=== PATIENT | male | born 1965 | race Caucasian/White ===

== ENCOUNTER 2020-09-21 09:55 | Emergency (ER) | payer OTHER, SELFPAY ==
[2020-09-21] VITALS (11 sets, daily range): BP systolic 129–192; BP diastolic 89–134; PULSE 94–106; RESP 16–20; TEMP 36.7; O2SAT 96–99
--- NOTE | ~2020-09-21 | XR_ITS ---
EXAMINATION: XR foot RT min 3V DATE: 09/21/2020 10:35 INDICATION: Wound lateral to fifth metatarsal. Neuropathy. TECHNIQUE: 4 views of right foot were obtained. COMPARISON: None. FINDINGS: There is moderate hallux valgus. No fracture. There is mild osteoarthritis of first metatar sophalangeal joint and some of the midfoot joints and interphalangeal joints. There is an enthesophyt e at the posterior aspect of calcaneal tuberosity. There is soft tissue swelling lateral to head of f ifth metatarsal. IMPRESSION: 1. No evidence of osteomyelitis. 2. Moderate hallux valgus. 3. Mild polyarticular osteoarthritis. Reviewed, dictated and finalized at location A. APEUTIC RIDING INSTRUCTOR
[2020-09-21 10:29] LABS: Basophils Absolute Auto 0.1 K/mm3 (0.0-0.1); Basophils Percent Auto 0.9 % (0.2-1.2); Eosinophils Absolute Auto 0.1 K/mm3 (0-0.3); Eosinophils Percent Auto 1.3 % (0-4.4); Hematocrit 44.4 % (42.0-52.0); Immature Granulocyte Absolute 0.04 K/mm3 (0.00-0.031); Immature Granulocyte Percent A 0.5 % (0-0.5); Lymphocytes Absolute Auto 2.36 K/mm3 (0.9-3.2); Lymphocytes Percent Auto 30.6 % (18.3-44.2); Mean Corpuscular HGB Conc 33.8 g/dl (32-36); Mean Corpuscular Hemoglobin 30.2 pg (26-34); Mean Corpuscular Volume 89.3 fl (80-100); Mean Platelet Volume 9.9 fl (7.4-10.4); Monocytes Absolute Auto 0.8 K/mm3 (0.1-0.6); Monocytes Percent Auto 10.2 % (2.6-8.5); Neutrophils Absolute Auto 4.4 K/mm3 (1.3-6.7); Neutrophils Percent Auto 56.5 % (45.5-73.1); Platelet Count Result 318 k/mm3 (150-375); Red Blood Count 4.97 M/mm3 (4.6-6.20); Red Cell Distribution Width 13.2 % (11.5-14.5); White Blood Count 7.7 K/mm3 (4.5-10.0)
[2020-09-21 10:41] LABS: Alanine Aminotransferase 22 U/L (4-50); Alkaline Phosphatase 130 U/L (38-126); Anion Gap 7 mmol/L (8-16); Aspartate Amino Transferase 29 U/L (17-59); Bilirubin,Total 0.6 mg/dL (0.2-1.3); Blood Urea Nitrogen 9 mg/dL (9-20); Calcium 8.8 mg/dL (8.4-10.2); Carbon Dioxide 28 mmol/L (22-30); Chloride 99 mmol/L (98-107); Estimated CRCL calculation 170 ml/min; Estimated Glomerular Filt Rate > 60; Glucose 330 mg/dL (75-110); Potassium 3.8 mmol/L (3.4-5.0); Sodium 134 mmol/L (137-145)
--- NOTE | 2020-09-21 11:44 | ED.WOUNDLAC ---
HPI - Wound/Laceration General Chief Complaint: Wound/Laceration Stated Complaint: right foot wound Time Seen by Provider: 09/21/20 11:10 Source: patient Mode of arrival: ambulatory Limitations: no limitations History of Present Illness HPI narrative: Patient is a 55-year-old male complaining of a wound on the bottom of his right foot that has been going on for almost a year. Patient denies any worsening of the wound. Patient denies any redness or swelling of his right foot. Patient denies any calf pain. Patient denies any cold extremity. Neurovascular is intact bilateral lower extremities. Patient states he has a history of diabetes and hypertension and has not had any medication for the past 2 years due to lack of insurance. Related Data Allergies Allergy/AdvReac Type Severity Reaction Status Date / Time No Known Allergies Allergy Verified 09/21/20 10:17 Review of Systems Review of Systems: All systems reviewed & are unremarkable except as noted in HPI and below Constitutional: Constitutional: Denies body ache(s), Denies chills, Denies excessive sweating, Denies fatigue, Denies fever(s), Denies headache(s), Denies lethargy, Denies malaise, Denies weakness and Denies weight loss Eyes: Eyes: Denies blurry vision, Denies change in vision and Denies loss of vision ENT: Denies dizziness, Denies ear discharge, Denies headache(s), Denies lip swelling, Denies epistaxis, Denies nasal congestion, Denies neck pain, Denies throat swelling and Denies tongue swelling Cardiovascular: Cardiovascular: Denies chest pain, Denies chest pain at rest, Denies chest pain with activity, Denies diaphoresis, Denies rapid heart rate, Denies edema, Denies irregular heart rhythm, Denies lightheadedness, Denies palpitations, Denies dyspnea and Denies dyspnea on exertion Respiratory: Respiratory: Denies chest congestion, Denies cough, Denies hemoptysis, Denies dyspnea and Denies dyspnea on exertion Gastrointestinal: Gastrointestinal: Denies abdominal pain, Denies melena, Denies hematochezia, Denies diarrhea, Denies nausea, Denies vomiting and Denies hematemesis Musculoskeletal: Musculoskeletal: Denies abnormal gait, Denies deformity, Denies joint swelling, Denies limited range of motion, Denies neck pain and Denies numbness Neurologic: Denies Abnormal speech present, Denies abnormal gait, Denies confusion, Denies dizziness, Denies headache(s), Denies focal weakness, Denies loss of vision, Denies numbness, Denies Other visual disturbances, Denies Sensory deficit (Neuro) and Denies weakness Psychiatric: Psychiatric: Denies confusion, Denies depression, Denies auditory hallucinations, Denies homicidal ideation and Denies suicidal ideation Endocrine: Endocrine: Denies cold intolerance, Denies excessive sweating, Denies fatigue, Denies heat intolerance and Denies palpitations Hematologic/Lymphatic: Hematologic/Lymphatic: Denies easy bleeding and Denies easy bruising Allergic/Immunologic: Allergic/Immunologic: Denies lip swelling, Denies throat swelling and Denies tongue swelling Exam Const: General: cooperative, healthy appearing, comfortable, no acute distress, well developed, alert and awake; No confusion Orientation/consciousness: oriented to person, oriented to place, oriented to time, patient oriented x3 and No confusion Limitations: no limitations HENMT: Head: normal to inspection, normocephalic and atraumatic Ears: hearing grossly normal bilaterally, TM normal on the right and TM normal on the left General nose exam: Normal external nose present, Normal nares present and No nasal discharge present Face and sinus: normal facial exam Mouth: Yes Normal oral and palatal mucosa present, Yes lip normal, Yes tongue normal and Yes oropharynx normal Throat: posterior oropharynx normal, tonsils normal and uvula midline Eyes: General: appearance normal, both eyes and all related structures Pupils: Equal, round and reactive pupils present EOM: EOMs intact bilatera
== END 2020-09-21 13:38 | disposition home or self-care (01) ==
PROVIDERS: Emergency Medicine; Emergency Provider Emergency Medicine
DX: E11.621 Type 2 diabetes mellitus with foot ulcer (principal); L97.819 Non-pressure chronic ulcer of other part of right lower leg with unspecified severity; E11.65 Type 2 diabetes mellitus with hyperglycemia; I10 Essential (primary) hypertension; Z79.84 Long term (current) use of oral hypoglycemic drugs
CPT/HCPCS: 36415; 73630; 80053; 85025; 99283

== ENCOUNTER 2023-02-28 00:31 | Day surgery (SDC) | payer OTHER, SELFPAY ==
[2023-02-24 14:48] VITALS: BMI 52.3
[2023-02-28 06:44] VITALS: BP 147/101; PULSE 105; RESP 22; TEMP 36.1; O2SAT 94; BMI 52.7
[2023-02-28] MEDS: LACTATED RINGERS 1,000 ML 150 ML IV CONT (07:04)
[2023-02-28 07:07] LABS: Glucose Point of Care 175 mg/dl (65-105)
--- NOTE | 2023-02-28 07:15 | PM.HPGS ---
History of Present Illness History of Present Illness Consent: Risks, benefits, and alternatives have been discussed and questions answered. Patient agrees to proceed with procedure. Chief complaint: neoplasm screening Narrative: Benny Ramirez is a 57 year old male Presents for screening colonoscopy. Patient's current weight appetite bowel movements are normal. Patient denies abdominal pain. He has had no bleeding. Family history noncontributory. Patient presents today for screening colonoscopy. Past medical history is significant for diabetes, hypertension, atherosclerotic heart disease with a history of VT 10 years ago. Review of Systems Review of Systems: Review of systems noncontributory. [facility] Past Medical History Medical History Accelerated essential hypertension Diabetes mellitus Heart attack History of [place] (myocardial infarction) Family History Family History Other Diabetes mellitus Social History Social History Smoking status: Former smoker Second hand tobacco smoke exposure: No Alcohol intake: never Substance use: never Substance use type: does not use Lack of Transportation: No Lack of Food: Never True Current Housing: I Have Housing Concerned About Future Housing: No Difficulty Paying Gas/Electric Bills: No Difficulty Paying for Meds: No Currently Unemployed: No Education: High School Diploma/GED Difficulty w/ Childcare or Family Care: No Living arrangements: alone Occupation/Education: occupation 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 Gender identity (if verbalized by the patient): Male Sexual Orientation (if Verbalized by the Patient): Straight or Heterosexual Spiritual care concerns: No Agree to blood products: Yes Meds Home Medications and Allergies Home Medications Medication Instructions Recorded Confirmed Type aspirin 325 mg tablet 325 mg PO DAILY 09/20/22 02/24/23 History gabapentin 300 mg capsule 300 mg PO TID #90 caps 09/20/22 02/24/23 Rx glimepiride 1 mg tablet 1 mg PO DAILY #60 tabs 11/11/22 02/24/23 Rx lisinopril 20 mg tablet 20 mg PO DAILY #60 tabs 11/11/22 02/24/23 Rx metformin 1,000 mg tablet 1,000 mg PO BID 30 days #60 tabs 12/19/22 02/24/23 Rx simvastatin 10 mg tablet 10 mg PO DAILY #30 tabs 12/19/22 02/24/23 Rx Allergies Allergy/AdvReac Type Severity Reaction Status Date / Time No Known Allergies Allergy Verified 02/28/23 06:44 Vital Signs Vital Signs - 24 hr 02/28/23 06:44 Temperature 96.9 F L Pulse Rate 105 H Respiratory Rate 22 H Blood Pressure 147/101 H Pulse Oximetry 94 Oxygen Delivery Room Air Exam Narrative: Physical exam reveals patient to be alert. Vital signs stable. HEENT exam is unremarkable. Patient is anicteric. Lungs are clear to auscultation and percussion. Heart is without murmur or extra sounds. Abdomen is obese, bowel sounds are present soft nontender with no organomegaly. Digital external rectal exam is normal. Assessment and Plan Assessment and plan (1) Encounter for screening colonoscopy: Code(s): Z12.11 - Encounter for screening for malignant neoplasm of colon Status: Acute Assessment and Plan: Patient presents today for screening colonoscopy. He appears to be at average risk for colon polyps. Further recommendations may be given after endoscopy.
--- NOTE | 2023-02-28 07:39 | WPDANESEPPF ---
Anes - Initial Pre Proc Eval Procedure: Operation Date: 02/28/23 08:00 Proposed Procedures p Screening Colonoscopy - Benny Beavers MD Date/Time: 02/28/23 07:39 Surgeon: Benny Beavers MD Pre Op Diagnosis: neoplasm screening Patient Data Age: 57 Gender: M Height: 1.83 m Weight: 176.2 kg Last Vital Signs Temp 96.9 F L 02/28/23 06:44 Pulse 105 H 02/28/23 06:44 Resp 22 H 02/28/23 06:44 BP 147/101 H 02/28/23 06:44 Pulse Ox 94 02/28/23 06:44 O2 Del Method Room Air 02/28/23 06:44 Allergies Allergy/AdvReac Type Severity Reaction Status Date / Time No Known Allergies Allergy Verified 02/28/23 06:44 Home Medications Medication Instructions Recorded Confirmed Type aspirin 325 mg tablet 325 mg PO DAILY 09/20/22 02/24/23 History gabapentin 300 mg capsule 300 mg PO TID #90 caps 09/20/22 02/24/23 Rx glimepiride 1 mg tablet 1 mg PO DAILY #60 tabs 11/11/22 02/24/23 Rx lisinopril 20 mg tablet 20 mg PO DAILY #60 tabs 11/11/22 02/24/23 Rx metformin 1,000 mg tablet 1,000 mg PO BID 30 days #60 tabs 12/19/22 02/24/23 Rx simvastatin 10 mg tablet 10 mg PO DAILY #30 tabs 12/19/22 02/24/23 Rx Laboratory Tests 02/28/23 07:03 POC Capillary Glucose 175 H mg/dl (65-105) Patient hx anesthesia problems: none Family hx anesthesia problems: none Results Review: All pre-operative results and documents have been reviewed as part of the pre-operative evaluation. [facility] Past Medical History Medical History Accelerated essential hypertension Diabetes mellitus Heart attack History of CT (myocardial infarction) Family History Family History Other Diabetes mellitus Social History Social History Smoking status: Former smoker Second hand tobacco smoke exposure: No Alcohol intake: never Substance use: never Substance use type: does not use Lack of Transportation: No Lack of Food: Never True Current Housing: I Have Housing Concerned About Future Housing: No Difficulty Paying Gas/Electric Bills: No Difficulty Paying for Meds: No Currently Unemployed: No Education: High School Diploma/GED Difficulty w/ Childcare or Family Care: No Living arrangements: alone Occupation/Education: occupation 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 Gender identity (if verbalized by the patient): Male Sexual Orientation (if Verbalized by the Patient): Straight or Heterosexual Spiritual care concerns: No Agree to blood products: Yes Anes - Eval Final PreProcedure Day of Procedure 02/28/23 07:39 Patient weight: super morbidly obese Heart: regular rate and rhythm Lungs: clear to auscultation Airway: Mallampati scale class III Neurological: alert and oriented Last oral intake: >/= 8 hours ASA classification: IV Emergent: no Anesthetic plan: proceed Anesthesia type and monitoring: general GIVS and standard monitoring Results Review: All pre-operative results and documents have been reviewed as part of the pre-operative evaluation. Informed Consent: The patient's anesthetic plan and its attendant risks and benefits were discussed with the patient/family/POA. Questions were solicited and answers provided to the satisfaction of the patient/family/POA.
[2023-02-28] MEDS: SIMETHICONE ORAL SUSPENSION 20 MG/0.3 ML 30 ML BOTTLE 0.6 ML IRRIGATION (07:59)
[2023-02-28 08:05] VITALS: BP 121/95; PULSE 97; RESP 22; O2SAT 24
[2023-02-28 08:15] VITALS: BP 136/102; PULSE 95; RESP 22; O2SAT 24
[2023-02-28 08:25] VITALS: BP 140/102; PULSE 95; RESP 22; O2SAT 24
== END 2023-02-28 08:33 | disposition home or self-care (01) ==
PROVIDERS: PCP Family Medicine; Visit Provider Internal Medicine Gastroenterology
PROC: 0DJD8ZZ Inspection of Lower Intestinal Tract, Via Natural or Artificial Opening Endoscopic (ICD-10-PCS; CPT 45378; principal; 2023-02-28 08:00)
DX: Z12.11 Encounter for screening for malignant neoplasm of colon (principal); K57.30 Diverticulosis of large intestine without perforation or abscess without bleeding; E11.9 Type 2 diabetes mellitus without complications; I10 Essential (primary) hypertension; I25.2 Old myocardial infarction; E66.01 Morbid (severe) obesity due to excess calories; Z68.43 Body mass index [BMI] 50.0-59.9, adult; Z79.84 Long term (current) use of oral hypoglycemic drugs; Z79.82 Long term (current) use of aspirin; Z87.891 Personal history of nicotine dependence
CPT/HCPCS: 45378; 82948; J2704; J7120

== ENCOUNTER → 2023-09-13 14:04 | Outpatient (CLI) | payer OTHER, SELFPAY ==
--- NOTE | ~2023-09-13 | XR_ITS ---
XR chest 2V DATE: 09/13/2023 14:25 INDICATION: Cough TECHNIQUE: 2 views COMPARISON: None FINDINGS: There is cardiomegaly. There is pulmonary vascular redistribution which may indicate mild pulmonary venous hypertension. No pulmonary infiltrate or consolidation or pleural effusion or pneumothorax is detected. No hilar or mediastinal enlargement. Diffuse osteopenia. IMPRESSION: Cardiomegaly Pulmonary vascular redistribution which may indicate mild pulmonary venous hypertension Reviewed, dictated and finalized at location B. LIGHT INSPECTOR IMPRESSION: Cardiomegaly Pulmonary vascular redistribution which may indicate mild pulmonary venous hype rtension
== END ==
PROVIDERS: PCP Physician Assistant Medical; Visit Provider Physician Assistant Medical
DX: J81.1 Chronic pulmonary edema (principal); R05.9 Cough, unspecified
CPT/HCPCS: 71046

== ENCOUNTER 2023-09-14 12:37 | Emergency (ER) | payer OTHER, SELFPAY ==
[2023-09-14] VITALS (8 sets, daily range): BP systolic 105–168; BP diastolic 61–98; PULSE 99–113; RESP 16–24; TEMP 36.6; O2SAT 90–97
--- NOTE | ~2023-09-14 | US_ITS ---
EXAMINATION: US venous doppler [facility] DATE: 09/14/2023 14:06 INDICATION: Right lower limb swelling and erythema TECHNIQUE: Grayscale ultrasound images without and with compression and Doppler ultrasound images of the left lower extremity veins were obtained. COMPARISON: None. FINDINGS: The visualized portions of left common femoral vein, profunda (deep) femoral vein, femoral vein, popl iteal vein, posterior tibial veins, gastrocnemius vein and greater saphenous vein outflow are patent. IMPRESSION: 1. No deep venous thrombosis in the left lower limb. Reviewed, dictated and finalized at location A. F MERCHANDISING OFFICER
--- NOTE | ~2023-09-14 | CT_ITS ---
EXAMINATION: CTA chest PE protocol DATE: 09/14/2023 14:42 INDICATION: Hemoptysis TECHNIQUE: Computed tomography angiography (CTA) of the chest was performed with 100 mL Omnipaque-350 intravenous contrast timed to evaluate the pulmonary arteries. Coronal maximum intensity projection 3D-reconstructions were created by the technologist. Automated exposure control and iterative reconst ruction technique were employed. Exam dose: 1054.64 mGy-cm total exam DLP. COMPARISON: 09/13/2023 2 view chest FINDINGS: There is moderate opacification of the pulmonary arteries and no evidence of pulmonary embo lism. There are diffuse patchy groundglass infiltrates throughout both lung florentino consistent with extensiv e bilateral pneumonia; definitive diagnosis includes pulmonary edema, hemorrhage, and/or respiratory distress syndrome. There is cardiomegaly. There is extensive coronary artery calcification. There is mild mediastinal lymph node prominence, likely reactive. No pericardial or pleural effusion. Bilateral upper pole renal probable cysts, including 10.5 cm exophytic posterior upper pole left sania l cyst. Normal morphology of the adrenal glands. Degenerative spurring of the cervical, thoracic and lumbar spine. No suspicious osteolytic lesions ar e noted. IMPRESSION: Diffuse severe bilateral patchy groundglass pulmonary infiltrates suggesting extensive b ilateral pneumonia. Consider Covid. Differential diagnosis includes pulmonary edema, pulmonary hemorr joann Cardiomegaly, prominent coronary artery calcification No evidence of pulmonary embolism Bilateral renal cysts Reviewed, dictated and finalized at Location A. Reviewed, dictated and finalized at location L. END SEWER IMPRESSION: Diffuse severe bilateral patchy groundglass pulmonary infiltrates suggesting extensive bilateral pneumonia. Consider Covid. Differential diagnosi s includes pulmonary edema, pulmonary hemorrhage Cardiomegaly, prominent coronary artery calcification No evidence of pulmonary embolism Bilateral renal cysts
[2023-09-14 13:51] LABS: Basophils Absolute Auto 0.1 K/mm3 (0.0-0.1); Basophils Percent Auto 0.7 % (0.2-1.2); Eosinophils Absolute Auto 0.1 K/mm3 (0-0.3); Eosinophils Percent Auto 1.2 % (0-4.4); Hematocrit 41.7 % (42.0-52.0); Hemoglobin 13.6 g/dL (14.0-18.0); Immature Granulocyte Absolute 0.05 K/mm3 (0.00-0.031); Immature Granulocyte Percent A 0.6 % (0-0.5); Lymphocytes Absolute Auto 2.43 K/mm3 (0.9-3.2); Lymphocytes Percent Auto 29.1 % (18.3-44.2); Mean Corpuscular HGB Conc 32.6 g/dl (32-36); Mean Corpuscular Volume 88.9 fl (80-100); Mean Platelet Volume 9.7 fl (7.4-10.4); Monocytes Percent Auto 11.6 % (2.6-8.5); Neutrophils Absolute Auto 4.7 K/mm3 (1.3-6.7); Neutrophils Percent Auto 56.8 % (45.5-73.1); Platelet Count Result 406 k/mm3 (150-375); Red Blood Count 4.69 M/mm3 (4.6-6.20); White Blood Count 8.4 K/mm3 (4.5-10.0)
[2023-09-14 13:52] LABS: Alanine Aminotransferase 22 U/L (6-50); Albumin Level 4.1 g/dL (3.5-5.1); Alkaline Phosphatase 101 U/L (38-126); Anion Gap 12 mmol/L (8-16); Aspartate Amino Transferase 34 U/L (17-59); Bilirubin,Total 0.7 mg/dL (0.2-1.3); Blood Urea Nitrogen 13 mg/dL (9-20); Carbon Dioxide 27 mmol/L (22-30); Chloride 96 mmol/L (98-107); Estimated CRCL calculation 168 ml/min; Estimated Glomerular Filt Rate > 60; Glucose 176 mg/dL (65-110); Potassium 3.8 mmol/L (3.4-5.0); Sodium 135 mmol/L (137-145)
[2023-09-14 13:54] LABS: INR 1.1; Prothrombin Time 14.2 Seconds (11.1-14.7)
[2023-09-14 14:03] LABS: NT Pro B Type Natriuretic Pept 245 pg/mL (19.9-100); Troponin I < 0.012 ng/mL (0.000-0.034)
[2023-09-14 16:16] LABS: Influenza A QL RT-PCR Negative (Negative); Influenza B QL RT-PCR Negative (Negative); RSV RNA, RT-PCR Negative (Negative); SARS-CoV-2 RNA PCR Negative (Negative)
--- NOTE | 2023-09-14 16:43 | ED.GENADULT ---
HPI - General Adult General Chief complaint: Extremity Injury, Lower Stated complaint: r/o blood clot left leg Time Seen by Provider: 09/14/23 12:49 History of Present Illness HPI narrative: patient is a 58-year-old male who presents ER for rule out blood clot. He had an outpatient chest x-ray performed yesterday that showed pulmonary vascular congestion. He has also been having left lower extremity swelling over last couple weeks with mild discoloration. He was started on Levaquin yesterday. He has no chest pain or chest pressure. Mild dyspnea that he feels is chronic. Reports he is chronically orthopneic. No history of CHF. No productive cough. No runny noseor sore throat. No fevers or chills. Related Data Home Medications Medication Instructions Recorded Confirmed aspirin 325 mg tablet 325 mg PO DAILY 09/20/22 09/13/23 Allergies Allergy/AdvReac Type Severity Reaction Status Date / Time No Known Allergies Allergy Verified 09/14/23 12:53 Review of Systems Review of Systems: All systems reviewed & are unremarkable except as noted in HPI and below Constitutional: Constitutional: Reports no additional constitutional complaints ENT: Reports system reviewed and no additional complaints, except as documented Cardiovascular: Cardiovascular: Reports no additional cardiovascular complaints Respiratory: Respiratory: Reports no additional respiratory complaints Gastrointestinal: Gastrointestinal: Reports no additional gastrointestinal complaints Musculoskeletal: Musculoskeletal: Denies arthralgias and Denies joint swelling Comments: leg edema PMFSH Past Medical History Medical History Accelerated essential hypertension Diabetes mellitus Heart attack History of [place] (myocardial infarction) Family History Family History Other Diabetes mellitus Social History Social History Smoking status: Never smoker Second hand tobacco smoke exposure: No Alcohol intake: never Substance use: never Substance use type: does not use Lack of Transportation: No Lack of Food: Never True Current Housing: I Have Housing Concerned About Future Housing: No Difficulty Paying Gas/Electric Bills: No Difficulty Paying for Meds: No Currently Unemployed: No Education: High School Diploma/GED Difficulty w/ Childcare or Family Care: No Living arrangements: alone 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 HEAD: Normocephalic, atraumatic. ENT: Mucous membranes moist. NECK: Supple. CHEST: Clear to auscultation. No respiratory distress. HEART: Regular rate and rhythm. Normal peripheral pulses. ABDOMEN: Soft, nontender, nondistended. EXTREMITIES: Normal range of motion. 2+ edema L>R. SKIN: Warm, dry, no rash. Mild erythema left calf reactive due to edema. NEURO: Alert and oriented x3. PSYCH: Normal mood and affect. Course Course Emergency Course: patient resting comfortably. Informed results. Consult to patient's PCP. Will start on diuretics and potassium. Will need follow-up x-ray and further evaluation and echocardiogram. Vital Signs Vital signs: Vital Signs Temperature 97.9 F 09/14/23 12:50 Pulse Rate 113 H 09/14/23 12:50 Respiratory Rate 17 09/14/23 12:50 Blood Pressure 105/61 09/14/23 12:50 Pulse Oximetry 97 09/14/23 12:50 Oxygen Delivery Room Air 09/14/23 12:50 Temperature 97.9 F 09/14/23 12:50 Pulse Rate 99 09/14/23 17:04 Respiratory Rate
[2023-09-14] MEDS: FUROSEMIDE INJ 40 MG/4 ML VIAL 20 MG IV PUSH (17:03)
== END 2023-09-14 17:13 | disposition home or self-care (01) ==
PROVIDERS: Emergency Provider Emergency Medicine; PCP Physician Assistant Medical
DX: R60.0 Localized edema (principal); J81.1 Chronic pulmonary edema; Z20.822 Contact with and (suspected) exposure to COVID-19; I10 Essential (primary) hypertension; E11.9 Type 2 diabetes mellitus without complications; I25.2 Old myocardial infarction; Z79.82 Long term (current) use of aspirin; Z79.84 Long term (current) use of oral hypoglycemic drugs; R91.8 Other nonspecific abnormal finding of lung field; I51.7 Cardiomegaly; I65.29 Occlusion and stenosis of unspecified carotid artery; N28.1 Cyst of kidney, acquired
CPT/HCPCS: 36415; 71275; 80053; 83880; 84484; 85025; 85610; 85730; 87637; 93971; 96374; 99284; J1940; Q9967

== ENCOUNTER 2024-04-29 07:59 | Outpatient (CLI) | payer OTHER, SELFPAY ==
--- NOTE | ~2024-04-29 | NM_ITS ---
EXAMINATION: NM shavon stress w perfusion DATE: 04/29/2024 11:44 INDICATION: Other forms of dyspnea. TECHNIQUE: Rest images were obtained following intravenous administration of 10.3 mCi Tc99m tetrofosm in (Myoview). The patient was infused intravenously with Lexiscan (regadenoson). Then, 32 mCi Tc99m t etrofosmin (Myoview) was administered intravenously, and stress images were obtained. Data was recons tructed into short axis and horizontal and vertical long axis SPECT images. Gated SPECT images were a lso obtained. COMPARISON: Chest CT 09/14/2023 FINDINGS: There is no definite reversible or fixed perfusion abnormality to suggest ischemia or infar ction. There is no segmental wall motion abnormality. Left ventricular ejection fraction measures 4 7%. IMPRESSION: 1. No definite ischemia or infarct. 2. Left ventricular ejection fraction measuring 47%. Reviewed, dictated and finalized at location A.
--- NOTE | 2024-04-29 08:02 | ECHO_ITS ---
Patient Info Name: Benny Ramirez Age: 59 years : 1965 Gender: Male Ht: 72 in Wt: 389 lbs BSA: 3.09 m2 HR: 99 bpm BP: 158 / 108 mmHg Technical Quality: Poor Exam Date: 04/29/2024 8:08 AM Exam Location: Echo Lab Patient Status: Outpatient Admit Date: 04/29/2024 Staff Ordering Physician: Felton Newton DO Commercial Loan Specialist: Tamika Chow RDCS Attending Provider: Felton Newton DO Referring Physician: Aman ANTONY; Exam Type: CA echo dop color flow w con Study Info Indications R60.0 - Localized edema Complete two-dimensional, color flow and Doppler transthoracic echocardiogram is performed with contrast to opacify the left ventricle and to improve the deliniation of the left ventricle endocardial borders. Contrast/Agitated Saline Contrast/Ag. Saline: Definity Amount: 3.00 ml Administered By: Tamika Chow RDCS New IV Access: Antecubital Space and Right Reason for Poor Study: patient body habitus Summary 1. Definity contrast administered improved wall motion interpretation. 2. Left ventricular chamber dimension is normal. 3. Left ventricular systolic function is normal, estimated at 60-65%. 4. The left ventricular diastolic function is grade I diastolic dysfunction. 5. E/e' 10 is mildly elevated. 6. Left atrial chamber dimension is mildly enlarged. 7. There is mild aortic valve sclerosis. 8. Mild pulmonary hypertension, estimated pulmonary arterial systolic pressure is 40 mmHg. Left Ventricle E/e' 10 is mildly elevated. Definity contrast administered improved wall motion interpretation. Left ventricular chamber dimension is normal. Left ventricular systolic function is normal, estimated at 60-65%. The left ventricular diastolic function is grade I diastolic dysfunction. Right Ventricle Right ventricular systolic function is normal and with normal TAPSE 1.8 cm. Right ventricular chamber dimension is normal. Left Atria Left atrial chamber dimension is mildly enlarged. Right Atria Right atrial chamber dimension is normal. Aortic Valve The aortic valve is trileaflet. There is mild aortic valve sclerosis. There is no aortic valve stenosis. There is no aortic valve regurgitation. Pulmonic Valve There is no pulmonic regurgitation. Mitral Valve There is no mitral valve stenosis. There is no mitral valve regurgitation. Tricuspid Valve There is no tricuspid valve regurgitation. Mild pulmonary hypertension, estimated pulmonary arterial systolic pressure is 40 mmHg. Pericardium/Pleural There is no pericardial effusion. Inferior Vena Cava Normal inferior vena cava with >50% collapse upon inspiration consistent with normal right atrial pressure, 5 mmHg. Aorta The aortic root size at the sinus of Valsalva is normal. Left Ventricular Outflow Tract Name Value Normal LVOT 2D LVOT Diameter 2.22 cm LVOT Doppler LVOT Peak Gradient 4 mmHg LVOT Mean Gradient 3 mmHg LVOT VTI 21.02 cm LVOT VTI/AV VTI Ratio 0.86 LVOT Stroke Volume 81.20 ml LVOT CO 7.42 l/min LVOT CI
--- NOTE | 2024-04-29 08:02 | EST_ITS ---
Patient Info Name: Benny Ramirez Age: 59 years : 1965 Gender: Male Ht: 72 in Wt: 389 lbs BSA: 3.09 m2 HR: 96 bpm BP: 102 / 70 mmHg Exam Date: 04/29/2024 10:17 AM Exam Location: Echo Lab Patient Status: Outpatient Admit Date: 04/29/2024 Staff Ordering Physician: Felton Newton DO Attending Provider: Felton Newton DO Exercise Technologist: Catalina Fernandez RDCS Exercise Physician: Felton Newton DO Exam Type: CA stress shavon w NM Study Info A regadenoson stress test was performed. Summary 1. 1. Negative lexiscan stress test for ischemic ST changes by ECG criteria. 2. 2. Stable hemodynamics throughout the test. 3. 3. Nuclear scan to follow and will be reported separately. Please correlate with it. 4. 4. Patient informed of the above results. Protocol: Lexiscan Stress ECG Details Stage: REST Duration (min): 1 min : 18 sec HR (bpm): 97 SBP (mmHg): 102 DBP (mmHg): 70 Stage: REST Duration (min): 5 min : 9 sec HR (bpm): 95 SBP (mmHg): 102 DBP (mmHg): 70 Stage: STAGE 1 Duration (min): 1 min : 0 sec HR (bpm): 99 SBP (mmHg): 110 DBP (mmHg): 75 Stage: RECOVERY Duration (min): 1 min : 0 sec HR (bpm): 105 SBP (mmHg): 110 DBP (mmHg): 75 Stage: RECOVERY Duration (min): 2 min : 0 sec HR (bpm): 106 SBP (mmHg): 110 DBP (mmHg): 75 Stage: RECOVERY Duration (min): 3 min : 0 sec HR (bpm): 103 SBP (mmHg): 110 DBP (mmHg): 75 Stage: RECOVERY Duration (min): 3 min : 28 sec HR (bpm): 103 SBP (mmHg): 102 DBP (mmHg): 71 Rest HR: 95 bpm Peak HR: 107 bpm Rest Sys BP: 102 mmHg Peak Sys BP: 110 mmHg Max Pred HR: 162 bpm % Max Pred HR: 66 % Target HR: 138 bpm Max RPP: 11,770 bpm*mmHg Termination Reason: Completed protocol Cardiac Symptoms: Shortness of breath Total Time: 1 min : 0 sec Rest Early BP: 70 mmHg Peak Early BP: 75 mmHg Total Dose: 0.4 mg Resting ECG Sinus rhythm. Stress ECG No ST changes. Arrhythmias None. Report Signatures
[2024-04-29] MEDS: PERFLUTREN LIPID MICROSPHERES 1.5 ML VIAL DILUTED TO 10 ML TOTAL VOLUME IV PUSH (08:50)
--- NOTE | 2024-04-29 10:56 | IVDEFINITY ---
Prior to administration of IV Definity the patient was educated on the risks and benefits of the imaging enhancing agent including potential adverse side effects. The patient verbalized understanding. Allergies were verified. No exclusion criteria were identified and at least one of the following inclusion criteria were met: 1) physician request, 2) patient technically difficult to image (per the [place] [employer]chocardi[employer] guidelines of two or more segments not discernable within the apical view), or 3) questionable left ventricular function. ?
== END 2024-04-29 08:00 | disposition home or self-care (01) ==
PROVIDERS: PCP Family Medicine; Visit Provider Internal Medicine Cardiovascular Disease
DX: R06.09 Other forms of dyspnea (principal); R60.0 Localized edema; I08.3 Combined rheumatic disorders of mitral, aortic and tricuspid valves
CPT/HCPCS: 78452; 93017; A9502; C8929; J2785; Q9957

== ENCOUNTER 2024-07-13 12:15 | Inpatient (IN) | payer OTHER, SELFPAY ==
[2024-07-13] VITALS (29 sets, daily range): BP systolic 99–150; BP diastolic 62–118; PULSE 61–175; RESP 17–26; TEMP 36.4–37.7; O2SAT 96–100; BMI 51.6
--- NOTE | ~2024-07-13 | US_ITS ---
EXAMINATION: US venous doppler LE RT DATE: 07/13/2024 15:02 INDICATION: Right lower limb pain, swelling and erythema TECHNIQUE: Grayscale ultrasound images without and with compression and Doppler ultrasound images of the right lower extremity veins were obtained. COMPARISON: None. FINDINGS: There is noncompressible thrombus in the right femoral and popliteal veins. The visualized portions o f right common femoral vein, profunda (deep) femoral vein and greater saphenous vein outflow are macias nt. The right posterior tibial and peroneal veins were unable to be visualized. IMPRESSION: 1. Deep venous thrombosis at the right femoral and popliteal veins. Reviewed, dictated and finalized at location A.
--- NOTE | ~2024-07-13 | XR_ITS ---
EXAMINATION: XR chest PICC line DATE: 07/18/2024 16:57 INDICATION: Central line placement. TECHNIQUE: A single frontal view of the chest was obtained. COMPARISON: Chest single view 07/13/2024 FINDINGS: There is no pneumonia, pleural effusion, or pneumothorax. Cardiomegaly is noted. A right up per extremity peripherally inserted central venous catheter (PICC) is seen with tip in the right neck . IMPRESSION: 1. PICC tip in abnormal position in the right neck. 2. Cardiomegaly. Reviewed, dictated and finalized at location A. UNITY ORGANIZATION AIDE
--- NOTE | ~2024-07-13 | CT_ITS ---
EXAMINATION: CTA chest PE protocol DATE: 07/13/2024 16:42 INDICATION: Dyspnea. Deepest venous thrombosis of right femoral and popliteal veins. TECHNIQUE: Computed tomography angiography (CTA) of the chest was performed with 100 mL Omnipaque-350 intravenous contrast timed to evaluate the pulmonary arteries. Coronal maximum intensity projection 3D-reconstructions were created by the technologist. Automated exposure control and iterative reconst ruction technique were employed. Exam dose: 996.14 mGy-cm total exam DLP. COMPARISON: None. FINDINGS: Small subsegmental left and right lower lobe pulmonary emboli. No other pulmonary emboli are noted. No thoracic aortic aneurysm or dissection. No hilar or mediastinal mass lesion or lymphadenopathy. Coronary artery calcification. No pericardial or pleural effusion. No pulmonary infiltrate or consolidation or suspicious pulmonary mass lesion is identified; lung deta il is limited due to respiratory motion. Normal morphology of the adrenal glands. Lower cervical spine degenerative disc disease. Degenerative spurring of the thoracic spine. No suspicious osteolytic or osteoblastic lesions are noted. IMPRESSION: Bilateral subsegmental lower lobe pulmonary emboli Reviewed, dictated and finalized at Location A. Reviewed, dictated and finalized at location A.
--- NOTE | ~2024-07-13 | US_ITS ---
US abdomen limited DATE: 07/14/2024 08:48 INDICATION: Elevated liver function tests TECHNIQUE: Real-time imaging and Doppler analysis Attention to liver, pancreas, gallbladder COMPARISON: None FINDINGS: The technologist notes of the examination was technically difficult in the liver and gallbl adder are not optimally demonstrated. No hepatic space-occupying mass lesion or gallstones or gallbladder wall thickening or pericholecysti c fluid is evident. Normal hepatopedal portal venous flow direction. The common bile duct measures 5.9 mm, within normal limits. No pancreatic mass lesion is detected. IMPRESSION: Limited study; no apparent abnormality of the liver, pancreas or gallbladder Reviewed, dictated and finalized at Location A. Reviewed, dictated and finalized at location A. OR PRODUCT DESIGNER IMPRESSION: Limited study; no apparent abnormality of the liver, pancreas or ga llbladder
--- NOTE | ~2024-07-13 | XR_ITS ---
EXAMINATION: XR chest PICC line DATE: 07/18/2024 16:58 INDICATION: Central line placement. TECHNIQUE: A single frontal view of the chest was obtained. COMPARISON: Chest single view at 4:43 PM FINDINGS: There is no pneumonia, pleural effusion, or pneumothorax. Cardiomegaly is noted. A right up per extremity peripherally inserted central venous catheter (PICC) is seen with tip in the superior v david cava. IMPRESSION: 1. PICC tip in the superior vena cava. 2. Cardiomegaly. Reviewed, dictated and finalized at location A. DRYER
--- NOTE | ~2024-07-13 | XR_ITS ---
XR foot RT min 3V DATE: 07/13/2024 15:17 INDICATION: Plantar wound; evaluate for osteomyelitis. TECHNIQUE: 3 views COMPARISON: 09/21/2020 right foot FINDINGS: There is extensive bone destruction involving the neck and head of the fifth metatarsal bon e, with adjacent subcutaneous emphysema, soft tissue swelling. Additionally, there is bone destruction involving the base of the proximal phalanx of the fifth digit . There is some concavity of the head of the second metatarsal bone likely due to avascular necrosis. Mild osteoarthritis of the first metatarsophalangeal joint. Osteopenia. IMPRESSION: Osteomyelitis of distal fifth metatarsal bone and base of proximal phalanx of fifth digit , with adjacent soft tissue swelling, subcutaneous emphysema Reviewed, dictated and finalized at location A. IMPRESSION: Osteomyelitis of distal fifth metatarsal bone and base of proximal phalanx of fifth digit, with adjacent soft tissue swelling, subcutaneous emphys jodie
--- NOTE | ~2024-07-13 | US_ITS ---
EXAMINATION: US arterial ankle brachial ind DATE: 07/17/2024 14:53 INDICATION: Right foot diabetic ulcer. TECHNIQUE: Segmental pressures and plethysmographic and Doppler waveforms of the brachial and lower e xtremity arteries were obtained. COMPARISON: None. FINDINGS: Right and left brachial artery pressures of 125 mm Hg and 136 mm Hg, respectively, are concordant (no rmal difference <= 30 mmHg). The right ankle-brachial index (PRABHJOT) is 1.33 (normal >= 0.9-1.0). The right great toe-brachial index (TBI) is 1.15 (normal >= 0.65). Arterial Doppler waveforms are biphasic at the ankle. The left PRABHJOT is 1.32. The left TBI is 0.85. Arterial Doppler waveforms are at least biphasic at the a nkle. IMPRESSION: 1. No significant arterial occlusive disease. Reviewed, dictated and finalized at location A. OPERATOR
--- NOTE | ~2024-07-13 | XR_ITS ---
XR chest 1V portable DATE: 07/13/2024 15:17 INDICATION: Dyspnea TECHNIQUE: Portable upright AP chest on 07/13/2024 at 1512 hours COMPARISON: 09/13/2023 2 view chest FINDINGS: Mild pulmonary vascular congestion and redistribution suggests mild pulmonary venous hypert ension. No pleural effusion or pneumothorax is detected. No hilar or mediastinal enlargement is noted. Osteopenia. IMPRESSION: Pulmonary vascular prominence and redistribution suggesting mild pulmonary venous hyperte nsion Reviewed, dictated and finalized at location A. IMPRESSION: Pulmonary vascular prominence and redistribution suggesting mild pu lmonary venous hypertension
[2024-07-13 13:07] LABS: Influenza A QL RT-PCR Negative (Negative); Influenza B QL RT-PCR Negative (Negative); RSV RNA, RT-PCR Negative (Negative); SARS-CoV-2 RNA PCR Negative (Negative)
--- NOTE | 2024-07-13 14:39 | ECG_ITS ---
Test Date: 2024-07-13 16:19:29 Measurements Intervals [place] Rate: 162 P: 0 NC: 0 QRS: -21 QRSD: 81 T: 29 QT: 256 QTc: 421 Interpretive Statements ATRIAL FIBRILLATION WITH RAPID VENTRICULAR RESPONSE BORDERLINE R WAVE PROGRESSION, ANTERIOR LEADS CONSIDER INFERIOR INFARCT, AGE INDETERMINATE BORDERLINE ST-T WAVE ABNORMALITY- HIGH LATERAL LEADS BASELINE ARTIFACT- I, II, III, AVR, AVL, AVF, V1-V6 ABNORMAL ECG No previous ECG available for comparison Electronically Signed On 07-13-2024 17:14:18 CDT by Felton Newton D.O.
[2024-07-13 15:22] LABS: Basophils Absolute Auto 0.1 K/mm3 (0.0-0.1); Basophils Percent Auto 0.5 % (0.2-1.2); Eosinophils Absolute Auto 0.1 K/mm3 (0-0.3); Eosinophils Percent Auto 0.6 % (0-4.4); Hematocrit 41.3 % (42.0-52.0); Hemoglobin 13.6 g/dL (14.0-18.0); Immature Granulocyte Absolute 0.45 K/mm3 (0.00-0.031); Immature Granulocyte Percent A 3.4 % (0-0.5); Lymphocytes Absolute Auto 2.25 K/mm3 (0.9-3.2); Mean Corpuscular HGB Conc 32.9 g/dl (32-36); Mean Corpuscular Hemoglobin 28.8 pg (26-34); Mean Corpuscular Volume 87.5 fl (80-100); Mean Platelet Volume 10.3 fl (7.4-10.4); Monocytes Absolute Auto 1.1 K/mm3 (0.1-0.6); Monocytes Percent Auto 8.1 % (2.6-8.5); Neutrophils Absolute Auto 9.3 K/mm3 (1.3-6.7); Neutrophils Percent Auto 70.4 % (45.5-73.1); Platelet Count Result 434 k/mm3 (150-375); Red Blood Count 4.72 M/mm3 (4.6-6.20); Red Cell Distribution Width 14.5 % (11.5-14.5); White Blood Count 13.3 K/mm3 (4.5-10.0)
--- NOTE | 2024-07-13 15:24 | ED.URI ---
HPI - URI/Sore Throat General Chief Complaint: Upper Respiratory Infection Stated Complaint: hot flashes, chills Time Seen by Provider: 07/13/24 14:02 History of Present Illness HPI Narrative: 59-year-old female with a history of PAD, CAD, hypertension, dyslipidemia, obesity, mi in 2011, hypertension and DM presents to the emergency department with complaints of hot and cold flashes for the past 3 days. Patient states at times he feels sweaty and hot, 30 minutes later he then feels cold and has chills. He is reporting some shortness of breath as well. Denies chest pain. He denies cough, congestion, otalgia, sore throat, abdominal pain, N/ V/ D, dysuria or hematuria. Upon evaluation patient was found have edematous right leg which he states is new since the onset of symptoms. After removing his shoe, the patient was found to have a malodorous ulcerative lesion to the distal aspect of the right 5th metatarsal, oozing purulent drainage with surrounding cellulitis. His right leg is significantly larger than his left leg, however he denies calf pain. Related Data Home Medications Medication Instructions Recorded Confirmed aspirin 325 mg tablet 325 mg PO DAILY 09/20/22 07/13/24 furosemide 40 mg tablet 40 mg PO DAILY 07/13/24 07/13/24 lisinopril 40 mg tablet 40 mg PO DAILY 07/13/24 07/13/24 Allergies Allergy/AdvReac Type Severity Reaction Status Date / Time No Known Allergies Allergy Verified 07/13/24 12:46 Review of Systems Review of Systems: All systems reviewed & are unremarkable except as noted in HPI and below PMFSH Past Medical History Medical History (Updated 07/13/24 @ 22:58 by Leia Munroe PA-C) Coronary artery disease reported obstructing coronary disease negative Lexiscan Myoview 04/29/2024 Dyslipidemia Morbid obesity Myocardial infarction (2011) hospitalized [facility]-no intervention Obstructive sleep apnea intolerant to CPAP Type 2 diabetes mellitus Surgical History Surgical History (Updated 07/13/24 @ 22:58 by Leia Munroe PA-C) No history of previous surgery Family History Family History Sibling Diabetes mellitus History of blood clots Chronic obstructive pulmonary disease Social History Social History (Updated 07/13/24 @ 22:59 by Leia Munroe PA-C) Social History: Surrogate medical decision maker: Kelly Ramirez, mother. Code status: Full code. Smoking packs per day: 3 Smoking cigarettes per day: 60.0 Years smoked: 25 Smoking pack-years: 75.00 Smoking status: Former smoker Tobacco type: cigarettes Second hand tobacco smoke exposure: No Alcohol intake: never Substance use: never Substance use type: does not use Do You Feel Safe in your Home?: Yes Lack of Transportation: No Lack of Food: Never True Current Housing: I Have Housing Concerned About Future Housing: No Difficulty Paying Gas/Electric Bills: No Difficulty Paying for Meds: No Currently Unemployed: No Education: High School Diploma/GED Difficulty w/ Childcare or Family Care: No Living arrangements: with family Additional living arrangements comments: The patient lives with his mother and their two Yorkies in [place]. 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 HEAD: Normocephalic, atraumatic. EYES: PERRLA and EOMI. ENT: Nares clear, no rhinorrhea or epistaxis. Mucous membranes moist. Bilateral TMs are crump nonbulging. Posterior pharynx that erythema or edema. Tonsillar hypertrophy. NECK: Supple. CHEST: Clear to auscultation. No respiratory distress. HEART: Regular rate and rhythm. No murmur heard. Normal peripheral pulses. ABDOMEN: Soft, nontender, nondistended, normal active bowel sounds. EXTREMITIES: Normal range of motion. 4+ pitting edema to the right lower extremity extending into the knee, no edema to the left lower extremity SKIN: deep ulceration to the distal plantar aspect of the right 5th metatarsal, actively draining malodorous purulence with surrounding erythema . No crepitus or vesicles NEURO: No focal deficits. Alert and oriented x3 Course Vital Signs Vital signs: Vital Signs Temperature 97.5 F L 07/13/24 12:16 Pulse Rate 61 07/13/24 12:16 Respiratory Rate 17 07/13/24 12:16 Blood Pressure 132/82 07/13/24 12:16 Pulse Oximetry 98 07/13/24 12:16 Oxygen Delivery Room Air 07/13/24 12:16 Temperature 99.9 F H 07/13/24 21:36 Pulse Rate 102 H 07/13/24 21:36 Respiratory Rate 20 07/13/24 21:36 Blood Pressure 99/76 L 07/13/24 21:36 Pulse Oximetry 96 07/13/24 21:36 Oxygen Delivery Room Air 07/13/24 12:45 MDM - URI/Sore Throat MDM Narrative Medical decision making narrative: 59-year-old male presents emergency department for intermittent hot and cold flashes with shortness of breath for the past 3 days. Vitals are stable. On exam, he has an edematous right lower extremity. Upon further evaluation, patient was found have a deep ulcerative lesion to the plantar aspect of the distal right 5th metatarsal draining malodorous purulent fluid with surrounding cellulitis. Suspect this is the source of his malaise. Concern for osteomyelitis and possible secondary DVT. CBC reveals leukocytosis of 13.3. ESR elevated at 22, CRP is 17 0.7. Chemistries reveal elevations of AST and ALT to 75 in 55 respectively as well as alk-phos of 174. BNP elevated to 2480. COVID, flu RSV are negative. Right lower extremity Doppler reveals DVT at the right femoral and popliteal veins. Given you DVT findings and reported shortness of breath, CTA chest PE shows bilateral subsegmental lower lobe pulmonary emboli. X-ray of the foot shows osteomyelitis of the distal 5th metatarsal bone and base of the proximal phalanx of 5th digit with adjacent soft tissue swelling and subcutaneous emphysema. patient became tachycardic and an EKG was obtained which reveals atrial fibrillation with RVR with rate of 162. Patient has no history of AFib and is not anticoagulated. The patient was started on cefepime, Flagyl and vancomycin for diabetic foot ulcer and osteomyelitis. Blood cultures are pending. Lactic is normal at 2.1. Heparin was initiated for VTE and new onset AFib. The patient was given fluids and 10 mg of diltiazem push with minimal rate response, therefore diltiazem drip started, rate did not improve. Dilt tiatriated up to 15 and another 10mg dilt push provided with minimal improvement. Rate now 170s. There has been some soft blood pressures with 80 systolic, however most recent blood pressure is 149/99. Discussed the case with body and frame technician information technology program manager, Dr. Hector, who advises a 5 mg IV push of Lopressor x1 and to start a amiodarone drip with 150 bolus of amiodarone pushed over an extended time. I also did patient's body and frame technician, Dr. Newton, who agrees with Dr. Hector's plan. Patient's heart rate has improved to 115 bpm and blood pressure is been stable at 147/84. Discussed the case with the hospitalist, DELORES Dupree he agrees the plan for admission. Lab Data 07/13/24 15:08 07/13/24 15:08 Labs: Lab Results 07/13/24 07/13/24 07/13/24 Range/Units 12:24 15:08 20:12 WBC 13.3 H (4.5-10.0) K/mm3 RBC 4.72 (4.6-6.20) M/mm3 Hgb 13.6 L (14.0-18.0) g/dL Hct 41.3 L (42.0-52.0) % MCV 87.5 (80-100) fl MCH 28.8 (26-34) pg MCHC 32.9 (32-36) g/dl RDW 14.5 (11.5-14.5) % Plt Count 434 H (150-375) k/mm3 MPV 10.3 (7.4-10.4) fl Immature Gran % (Auto) 3.4 H (0-0.5) % Neut % (Auto) 70.4 (45.5-73.1) % Lymph % (Auto) 17.0 L (18.3-44.2) % [place] % (Auto) 8.1 (2.6-8.5) % Eos % (Auto) 0.6 (0-4.4) % Baso % (Auto) 0.5 (0.2-1.2) % Lymph # (Auto) 2.25 (0.9-3.2) K/mm3 [place] # (Auto) 1.1 H (0.1-0.6) K/mm3 Eos # (Auto) 0.1 (0-0.3) K/mm3 Baso # (Auto) 0.1 (0.0-0.1) K/mm3 Abs Immat Gran (auto) 0.45 H (0.00-0.031) K/mm3 Absolute Neuts (auto) 9.3 H (1.3-6.7) K/mm3 Absolute Nucleated RBC 0.000 (0.0-0.012) K/mm3 Nucleated RBC % 0.0 (0.0-0.2) % ESR 22 H (0-20) mm/hr PT 14.9 H (11.1-14.7) Seconds INR 1.1 APTT 29.9 (22.3-36.8) Seconds Sodium 132 L (137-145) mmol/L Potassium 3.7 (3.4-5.0) mmol/L Chloride 93 L (98-107) mmol/L Carbon Dioxide 28 (22-30) mmol/L Anion Gap 11 (4-12) mmol/L BUN 14 (9-20) mg/dL Creatinine 0.90 (0.7-1.3) mg/dL Estim Creat Clear Calc 128 ml/min Estimated GFR > 60 (59 - ) Glucose 144 H (65-110) mg/dL Lactic Acid 2.1 H 2.2 H (0.7-2.0) mmol/L Calcium 8.6 (8.4-10.2) mg/dL Magnesium 2.3 (1.6-2.3) mg/dL Total Bilirubin 0.9 (0.2-1.3) mg/dL AST 75 H (17-59) U/L ALT 55 H (6-50) U/L Alkaline Phosphatase 174 H (38-126) U/L C-Reactive Protein 17.7 H (<1.0) mg/dL NT-Pro-B Natriuret Pep 2480 H (19.9-100) pg/mL Total Protein 9.0 H (6.3-8.2) g/dL Albumin 3.9 (3.5-5.1) g/dL TSH (Reflex) 1.900 (0.465-4.68) uIU/mL Influenza A (RT-PCR) Negative (Negative) Influenza B (RT-PCR) Negative (Negative) RSV (RT-PCR) Negative (Negative) SARS-CoV-2 RNA (RT-PCR) Negative (Negative) Discharge Plan Discharge Clinical Impression: Atrial fibrillation with RVR Osteomyelitis Qualifiers: Osteomyelitis type: unspecified type Osteomyelitis location: fibula Laterality: right Qualified Code(s): M86.9 - Osteomyelitis, unspecified Pulmonary edema Qualifiers: Chronicity: acute Qualified Code(s): J81.0 - Acute pulmonary edema DVT (deep venous thrombosis) Qualifiers: DVT location: lower extremity Affected thrombotic vein of extremity: femoral Chronicity: acute Laterality: right Qualified Code(s): I82.411 - Acute embolism and thrombosis of right femoral vein Patient Disposition: Still a Patient Condition: Stable
[2024-07-13 15:35] LABS: Lactic Acid Reflex 2.1 mmol/L (0.7-2.0)
[2024-07-13] MEDS: CEFEPIME 2 GM/NS 50 ML 2 GM/50 ML BAG IVPB (15:37)
[2024-07-13 15:38] LABS: Alanine Aminotransferase 55 U/L (6-50); Albumin Level 3.9 g/dL (3.5-5.1); Alkaline Phosphatase 174 U/L (38-126); Anion Gap 11 mmol/L (4-12); Aspartate Amino Transferase 75 U/L (17-59); Bilirubin,Total 0.9 mg/dL (0.2-1.3); Blood Urea Nitrogen 14 mg/dL (9-20); Calcium 8.6 mg/dL (8.4-10.2); Carbon Dioxide 28 mmol/L (22-30); Chloride 93 mmol/L (98-107); Estimated CRCL calculation 128 ml/min; Estimated Glomerular Filt Rate > 60; Glucose 144 mg/dL (65-110); Potassium 3.7 mmol/L (3.4-5.0); Sodium 132 mmol/L (137-145)
[2024-07-13 15:43] LABS: NT Pro B Type Natriuretic Pept 2480 pg/mL (19.9-100)
[2024-07-13 15:48] LABS: CRP 17.7 mg/dL (<1.0)
[2024-07-13 15:57] LABS: Erythrocyte Sedimentation Rate 22 mm/hr (0-20)
[2024-07-13] MEDS: metroNIDAZOLE 500 MG/ISO 100ML 500 MG/100 ML BAG 100 MG IVPB ×2 (16:11→22:36)
[2024-07-13 16:30] LABS: INR 1.1; Prothrombin Time 14.9 Seconds (11.1-14.7)
[2024-07-13 16:31] LABS: Partial Thromboplastin Time 29.9 Seconds (22.3-36.8)
[2024-07-13] MEDS: SODIUM CHLORIDE 0.9% IV 1,000 ML 999 ML IV CONT (16:56)
[2024-07-13] MEDS: dilTIAZem HCl INJ 25 MG/5 ML VIAL 10 MG IV PUSH ×2 (16:56→18:02)
[2024-07-13] MEDS: dilTIAZem 100 MG/100 ML 100 MG/100 ML BAG IV CONT (17:20)
[2024-07-13] MEDS: HEPARIN SODIUM 5,000 UNITS/ML VIAL 9000 UNITS IV PUSH (18:10)
[2024-07-13] MEDS: HEPARIN SOD/D5W 100 UNITS/ML 25,000 UNITS/250 ML BAG 15 UNITS IV CONT (18:11)
[2024-07-13] MEDS: VANCOMYCIN 1,250 MG/NS 250 ML 1,250 MG/250 ML BAG 166.67 MG IVPB ×2 (18:17→19:59)
[2024-07-13 18:20] LABS: Reflex Lactic Acid Yes or No Add Lactic
--- NOTE | 2024-07-13 19:09 | PC.NURSE ---
Report received from GAGAN Younger. Assumed care of patient at this time.
[2024-07-13] MEDS: METOPROLOL TARTRATE INJ 5 MG/5 ML VIAL IV PUSH (19:18)
--- NOTE | 2024-07-13 19:38 | PC.NURSE ---
VIB per JANETH Ritter to hold off on the amio drip at this time.
--- NOTE | 2024-07-13 19:53 | PC.NURSE ---
VIB to start Amio drip now.
[2024-07-13] MEDS: AMIODARONE 150 MG/D5W 100 ML 150 MG/100 ML BAG 300 MG IV CONT (20:18)
--- NOTE | 2024-07-13 20:21 | PC.NURSE ---
IV Amio drip loading dose verified by this RN and GAGAN Minor.
[2024-07-13 20:35] LABS: Lactic Acid 2.2 mmol/L (0.7-2.0)
[2024-07-13] MEDS: AMIODARONE 360 MG/D5W 200 ML 360 MG/200 ML BAG 33.33 MG IV CONT (20:41)
[2024-07-13 20:45] LABS: Magnesium 2.3 mg/dL (1.6-2.3)
--- NOTE | 2024-07-13 21:15 | P.HP_ITS ---
H&P: HPI History of Present Illness Date/Time: 07/13/24 21:15 Chief Complaint: Chills and sweats. Narrative: This is a pleasant 59-year-old male with hypertension, dyslipidemia, nonobstructive coronary artery disease, obstructive sleep apnea intolerant to CPAP, and type 2 diabetes mellitus who presented to the emergency department via private vehicle for evaluation of hot and cold flashes. The patient provides the following history. He has not been feeling well for 3 days with episodes hot flashes and sweats followed by cold chills. He has also noticed swelling in his right leg and reports having a chronic ulcer on the right lateral foot which has been draining malodorous fluid for over a month. He has also been feeling a bit short of breath with exertion. He denies syncope, near syncope, headache, neck ache, sinus congestion, sore throat, cough, abdominal pain, nausea, vomiting, diarrhea, and dysuria. He also denies chest pain, pleuritic pain, palpitations, sensations of racing heart, and calf pain. In the ED: He was afebrile on arrival with stable vital signs. Labs were significant for a WBC count of 13.3, hemoglobin 13.6, platelet 434, ESR 22, sodium 132, chloride 93, lactic acid 2.1, glucose 144, AST 75, ALT 55, alkaline phosphatase 174, CRP 17.7, proBNP 2480. Tested negative for influenza, RSV, and COVID. Chest CTA showed bilateral subsegmental lower lobe pulmonary emboli. Venous Doppler ultrasound showed DVTs in the right femoral and popliteal veins. Right foot x-ray showed osteomyelitis of the distal 5th metatarsal bone and base of the proximal phalanx of the 5th digit. Several hours after arrival he went into rapid atrial fibrillation and was given IV metoprolol without much benefit and he has been started on amiodarone drip. He has also been started on cefepime, metronidazole, and vancomycin for the diabetic foot infection and heparin drip for DVT and pulmonary emboli. He is being admitted to the IMU in this setting for further treatment and cardiology and surgery consultations. Review of Systems Review of Systems: 12 systems were reviewed and are negativ e except for as per HPI. [facility] Past Medical History Medical History (Updated 07/13/24 @ 23:17 by Leia Munroe PA-C) Coronary artery disease reported obstructing coronary disease negative Lexiscan Myoview 04/29/2024 Dyslipidemia Morbid obesity Myocardial infarction (2012) hospitalized [facility]-no intervention Obstructive sleep apnea intolerant to CPAP Type 2 diabetes mellitus Surgical History Surgical History (Updated 07/13/24 @ 22:58 by Leia Munroe PA-C) No history of previous surgery Family History Family History Sibling Diabetes mellitus History of blood clots Chronic obstructive pulmonary disease Social History Social History (Updated 07/13/24 @ 23:11 by Leia Munroe PA-C) Social History: Surrogate medical decision maker: Kelly Ramirez, mother. Code status: Full code. Smoking packs per day: 3 Smoking cigarettes per day: 60.0 Years smoked: 25 Smoking pack-years: 75.00 Smoking status: Former smoker Tobacco type: cigarettes Second hand tobacco smoke exposure: No Alcohol intake: never Substance use: never Substance use type: does not use Do You Feel Safe in your Home?: Yes Lack of Transportation: No Lack of Food: Never True Current Housing: I Have Housing Concerned About Future Housing: No Difficulty Paying Gas/Electric Bills: No Difficulty Paying for Meds: No Currently Unemployed: No Education: High School Diploma/GED Difficulty w/ Childcare or Family Care: No Living arrangements: with family Additional living arrangements comments: The patient lives with his mother and their two Yorkies in [place]. 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 Spiritual care concerns: Yes (Scientology) Agree to blood products: Yes Meds Home Medications and Allergies Home Medications Medication Instructions Recorded Confirmed Type aspirin 325 mg tablet 325 mg PO DAILY 09/20/22 07/13/24 History glimepiride 1 mg tablet 1 mg PO QAM #30 tabs 09/27/23 07/13/24 Rx metformin 1,000 mg tablet 1,000 mg PO BID 30 days #180 tabs 09/27/23 07/13/24 Rx empagliflozin 25 mg tablet 25 mg PO DAILY #90 tabs 03/25/24 07/13/24 Rx (Jardiance) simvastatin 10 mg tablet 10 mg PO DAILY #90 tabs 06/11/24 07/13/24 Rx furosemide 40 mg tablet 40 mg PO DAILY 07/13/24 07/13/24 History lisinopril 40 mg tablet 40 mg PO DAILY 07/13/24 07/13/24 History Allergies Allergy/AdvReac Type Severity Reaction Status Date / Time No Known Allergies Allergy Verified 07/13/24 12:46 Vital Signs Vital Signs - 24 hr 07/13/24 12:16 07/13/24 12:45 07/13/24 16:51 Temperature 97.5 F L Pulse Rate 61 167 H Respiratory Rate 17 17 Blood Pressure 132/82 131/111 H Pulse Oximetry 98 98 98 Oxygen Delivery Room Air Room Air 07/13/24 17:00 07/13/24 17:20 07/13/24 17:33 Temperature Pulse Rate 155 H 175 H 173 H Respiratory Rate 22 H Blood Pressure 150/93 H 142/118 H Pulse Oximetry 97 Oxygen Delivery 07/13/24 18:18 07/13/24 18:24 07/13/24 19:18 Temperature Pulse Rate 154 H 153 H 144 H Respiratory Rate 25 H Blood Pressure 109/84 Pulse Oximetry 96 Oxygen Delivery 07/13/24 19:18 07/13/24 19:25 07/13/24 19:38 Temperature Pulse Rate 146 H 114 H 122 H Respiratory Rate 20 20 22 H Blood Pressure 140/95 H 99/72 L 147/84 H Pulse Oximetry 99 99 100 Oxygen Delivery 07/13/24 20:18 07/13/24 19:40 07/13/24 19:59 Temperature Pulse Rate 120 H 119 H Respiratory Rate 18 Blood Pressure 109/72 Pulse Oximetry 96 Oxygen Delivery 07/13/24 20:02 07/13/24 20:15 07/13/24 20:16 Temperature Pulse Rate 110 H 112 H Respiratory Rate 24 H 26 H Blood Pressure 106/62 109/72 Pulse Oximetry 98 99 99 Oxygen Delivery 07/13/24 20:17 07/13/24 20:34 07/13/24 20:39 Temperature Pulse Rate 114 H 95 93 Respiratory Rate 23 H 22 H Blood Pressure 102/68 102/68 Pulse Oximetry 96 100 Oxygen Delivery 07/13/24 20:41 07/13/24 20:57 07/13/24 21:12 Temperature Pulse Rate 98 96 81 Respiratory Rate 20 17 Blood Pressure 102/68 106/70 Pulse Oximetry 97 97 Oxygen Delivery Exam Narrative: General: Moderately ill-appearing male in the semi-Bedoya position in bed. Weight: 172.6 kg. BMI: 51.6. HEENT: Wearing corrective lenses. PERRL, EOMI. Sclera anicteric. Tacky mucous membranes. Oropharynx is crowded. Neck: Supple. Exam limited due to neck circumference. No obvious JVD or lymphadenopathy. Respiratory: Respirations are nonlabored and he is speaking in full sentences. Lungs are clear to auscultation. Cardiovascular: Irregularly irregular rate and rhythm. Gastrointestinal: Abdomen is soft, morbidly obese, nontender, and nondistended with positive bowel sounds. Skin: Warm and dry. There is an ulcerative lesion on the lateral plantar aspect of the right foot draining malodorous, purulent fluid with surrounding warmth and erythema. No obvious crepitus noted. Extremities: No cyanosis or clubbing. Legs are large. There is pitting edema of the right lower extremity. No obvious palpable knots or cords. Neurological: Alert. Cranial nerves 2-12 are grossly intact. No gross focal deficits to casual conversation. Psychiatric: Pleasant and cooperative with normal mood and affect. Judgment and insight intact. H&P: Results Labs Labs: Short CBC 07/13/24 Range/Units 15:08 WBC 13.3 H (4.5-10.0) K/mm3 Hgb 13.6 L (14.0-18.0) g/dL Hct 41.3 L (42.0-52.0) % Plt Count 434 H (150-375) k/mm3 BMP 07/13/24 15:08 Sodium 132 L Potassium 3.7 Chloride 93 L Carbon Dioxide 28 BUN 14 Creatinine 0.90 Glucose 144 H Calcium 8.6 Liver Function 07/13/24 Range/Units 15:08 Total Bilirubin 0.9 (0.2-1.3) mg/dL AST 75 H (17-59) U/L ALT 55 H (6-50) U/L Alkaline Phosphatase 174 H (38-126) U/L Albumin 3.9 (3.5-5.1) g/dL Imaging Venous Doppler Study 07/13/24 15:06 IMPRESSION: 1. Deep venous thrombosis at the right femoral and popliteal veins. Foot X-Ray 07/13/24 15:34 IMPRESSION: 1. Osteomyelitis of distal fifth metatarsal bone and base of proximal phalanx of fifth digit, with adjacent soft tissue swelling, subcutaneous emphysema. Chest X-Ray 07/13/24 15:38 IMPRESSION: 1. Pulmonary vascular prominence and redistribution suggesting mild pulmonary venous hypertension. Chest CTA 07/13/24 16:51 IMPRESSION: 1. Bilateral subsegmental lower lobe pulmonary emboli. Assessment and Plan Assessment and plan (1) Sepsis: Code(s): A41.9 - Sepsis, unspecified organism Status: Acute (2) Osteomyelitis of right foot: Code(s): M86.9 - Osteomyelitis, unspecified Status: Acute (3) Diabetic ulcer of right foot: Code(s): E11.621 - Type 2 diabetes mellitus with foot ulcer; L97.519 - Non-pressure chronic ulcer of other part of right foot with unspecified severity Status: Acute (4) Diabetic infection of right foot: Code(s): E11.628 - Type 2 diabetes mellitus with other skin complications; L08.9 - Local infection of the skin and subcutaneous tissue, unspecified Status: Acute (5) Deep vein thrombosis of right lower extremity: Code(s): I82.401 - Acute embolism and thrombosis of unspecified deep veins of right lower extremity Status: Acute (6) Bilateral pulmonary embolism: Code(s): I26.99 - Other pulmonary embolism without acute cor pulmonale Status: Acute (7) Atrial fibrillation with rapid ventricular response: Code(s): I48.91 - Unspecified atrial fibrillation Status: Acute (8) Elevated LFTs: Code(s): R79.89 - Other specified abnormal findings of blood chemistry Status: Acute (9) Hypertension: Code(s): I10 - Essential (primary) hypertension Status: Acute (10) Type 2 diabetes mellitus: Code(s): E11.9 - Type 2 diabetes mellitus without complications Status: Acute (11) Obstructive sleep apnea: Code(s): G47.33 - Obstructive sleep apnea (adult) (pediatric) Status: Acute Plan The patient presented to the emergency department for evaluation of hot flashes and chills the last several days in addition to right lower extremity swelling and worsening right foot ulcer as detailed in HPI. Labs, imaging, EKG, and all reports were personally reviewed. He meets sepsis criteria with tachycardia, soft blood pressures, leukocytosis, and lactic acidosis in the setting of infection. He received a L of normal saline in the ED and will be given another L overnight with close monitoring of volume status. Source of infection is a diabetic right foot ulcer with underlying osteomyelitis for which he has been started on cefepime, metronidazole, and vancomycin. Wound and blood cultures have been ordered. He will be NPO after midnight for possible debridement or amputation tomorrow per Dr. Montgomery. He is currently on an amiodarone drip with im provement in his rate though it looks like he remains in atrial fibrillation. He is a patient of Dr. Newton who has also been consulted. Continue heparin drip for bilateral pulmonary emboli and right lower extremity deep venous thrombosis. Clot burden does not seem to be large however an echocardiogram has been ordered. LFTs are a bit elevated though his abdominal exam is benign; check right upper quadrant ultrasound. Hold metformin as he received IV contrast. Initiate sliding scale insulin, Accu-Cheks, and hypoglycemic protocol. Check hemoglobin A1c. He is intolerant to CPAP but should be encouraged to retry using the machine at night. His home medications will be reviewed and resumed as appropriate. Findings and treatment plan were discussed with the patient. Questions were solicited and answered to satisfaction. The patient's medical management will be taken over by the hospitalist team in a.m. Quality VTE Prophylaxis VTE prophylaxis: pharmacologic ordered (currently on a heparin drip for DVT and PE) The patient has been admitted under observation status. Hospitalist [facility] Advance Care Plan I have confirmed that the patient's Advanced Care Plan is present, code status is documented, or surrogate decision maker is listed in patient medical record.: Yes Medication Reconciliation I have utilized all available resources to obtain, update and review the patien ts current medications (includes all prescriptions, OTC, herbals, cannabis, and nutritional supplements).: Yes
--- NOTE | 2024-07-13 21:34 | ADMGEN ---
This patient, Benny Ramirez, was admitted to IMU Room 204-01 on 07/13/24 at 2123 . Patient/family oriented to hospital policies and general routines/ including ID bracelet, bed and alarms, visiting hours, pain management, procedures, bathroom and other care routines, personal /items, smoking policy, room service/diet, and visiting hours. Information on how to activate the Rapid Response Team has been discussed. Patient/Family are encouraged to report perceived risks to care and to ask questions if they do not understand what they are told or what they should do.
[2024-07-13 21:47] LABS: Glucose Point of Care 185 mg/dl (65-105)
[2024-07-13 23:43] LABS: Hemoglobin A1C 7.4 % (<5.7)
[2024-07-13 23:44] LABS: Creatine Kinase 293 U/L (55-170)
[2024-07-13 23:56] LABS: Troponin I 0.018 ng/mL (0.000-0.034)
[2024-07-14] VITALS (29 sets, daily range): BP systolic 91–143; BP diastolic 56–90; PULSE 70–137; RESP 14–20; TEMP 36.4–36.9; O2SAT 94–100
[2024-07-14] MEDS: SODIUM CHLORIDE 0.9% IV 1,000 ML 999 ML IV CONT (00:17)
[2024-07-14] MEDS: CEFEPIME 2 GM/NS 50 ML 2 GM/50 ML BAG IVPB ×3 (00:18→21:35)
[2024-07-14 00:54] LABS: Partial Thromboplastin Time 39.6 Seconds (22.3-36.8)
[2024-07-14] MEDS: HEPARIN SODIUM 5,000 UNITS/ML VIAL 9000 UNITS IV PUSH ×2 (01:07→12:42)
--- NOTE | 2024-07-14 01:18 | PC.NURSE ---
Daylight Savings Time For Daylight Savings Time Ending in the Fall - Clocks are moved back. For Daylight Savings Time Beginning in the Spring - Clocks are moved ahead. For [facility], the time of change occurs at 0200 hrs. Time is taken from the restaurant server. This entry on the patient's chart recognizes the change in time reflected during documentation. Example: 2 entries for vital signs may be charted for 0200 hrs.
[2024-07-14] MEDS: AMIODARONE 360 MG/D5W 200 ML 360 MG/200 ML BAG 16.67 MG IV CONT ×2 (02:22→14:41)
[2024-07-14 02:47] LABS: Glucose Point of Care 154 mg/dl (65-105)
--- NOTE | 2024-07-14 06:23 | ECG_ITS ---
Test Date: 2024-07-14 07:58:27 Measurements Intervals [place] Rate: 90 P: 0 UT: 0 QRS: -19 QRSD: 106 T: -8 QT: 407 QTc: 500 Interpretive Statements ATRIAL FIBRILLATION LOW QRS VOLTAGE IN PRECORDIAL LEADS PATTERN CONSISTENT WITH PULMONARY DISEASE INFERIOR MYOCARDIAL INFARCTION , PROBABLY OLD ABNORMAL ECG Compared to ECG 07/13/2024 16:19:29 HEART RATE HAS DECREASED Electronically Signed On 07-14-2024 09:28:18 TURFGRASS TECHNICIAN by Felton Newton D.O.
[2024-07-14] MEDS: metroNIDAZOLE 500 MG/ISO 100ML 500 MG/100 ML BAG 100 MG IVPB ×3 (06:34→23:06)
--- NOTE | 2024-07-14 07:30 | PM.CNCAR ---
Assessment and Plan Assessment and plan (1) PAF (paroxysmal atrial fibrillation): Code(s): I48.0 - Paroxysmal atrial fibrillation Status: Acute Assessment and Plan: In atrial fib. [id number] 2. On heparin drip. On Amiodarone drip. Rate is normal. Continue Amiodarone drip for 24 hours which will be tonight. Then will change to PO Amiodarone. (2) DVT (deep venous thrombosis): Qualifiers: Affected thrombotic vein of extremity: femoral Chronicity: acute DVT location: lower extremity Laterality: right Qualified Code(s): I82.411 - Acute embolism and thrombosis of right femoral vein Code(s): I82.409 - Acute embolism and thrombosis of unspecified deep veins of unspecified lower extremity Status: Acute Assessment and Plan: On heparin drip. (3) Pulmonary embolism: Code(s): I26.99 - Other pulmonary embolism without acute cor pulmonale Status: Acute Assessment and Plan: On heparin drip. Echo ordered. (4) Osteomyelitis of right foot: Code(s): M86.9 - Osteomyelitis, unspecified Status: Acute Assessment and Plan: On antibiotics. Surgery consulted. (5) Dyslipidemia: Code(s): E78.5 - Hyperlipidemia, unspecified Status: Acute Assessment and Plan: On Simvastatin. (6) Edema of both legs: Code(s): R60.0 - Localized edema Status: Acute Assessment and Plan: Start Furosemide 40 mg IV daily. (7) Hypertension: Code(s): I10 - Essential (primary) hypertension Status: Acute Assessment and Plan: Stable. History of Present Illness History of Present Illness Consult date/time: 07/14/24 07:30 Reason For Visit: PE, DVT, osteomyelistis, AFib with RVR Narrative: 59 yr old man who is my regular cardiology patient and a patient of Dr. Sanchez presents to ER with feeling hot flashes and chills. He has a history of CAD with 50% stenosis in 2011 in [facility], DM, hypertension, dyslipidemia. Reports he noted hot flashes and chills and some recent sob and swelling of right leg in last few days. In ED, he has right leg DVT, bilateral pulm embolism, new onset atrial fib while in ED. He is considering gastric bypass surgery for weight loss. Reports he has BECERRA walking very short distances. Denies chest pain, orthopnea, PND, dizziness, palpitations. Cardiovascular Procedures Echo/MUGA:: 04/29/24 Echo: EF 60-65%, grade I diastolic dysfunction (E/e' 10), mild LAE, RVSP 40 mmHg. Electrophysiology:: 01/23/24 EKG: Sinus tachycardia 100 bpm. Stress Tests:: 04/29/24 Lexiscan myoview: Negative. 09/14/23 CTA chest: Diffuse severe bilateral patchy infiltrates. No pulm embolism. 09/14/23 Venous duplex: No DVT of left leg. Review of Systems Review of Systems: All systems reviewed & are unremarkable except as noted in HPI and below Constitutional: Constitutional: Reports as per HPI, Reports chills and Reports fever(s) Cardiovascular: Cardiovascular: Reports as per HPI and Denies chest pain Respiratory: Respiratory: Reports as per HPI and Reports dyspnea Gastrointestinal: Gastrointestinal: Reports as per HPI and Denies abdominal pain Genitourinary: Genitourinary: Reports as per HPI and Denies dysuria Neurologic: Reports as per HPI, Denies dizziness and Denies syncope [facility] Past Medical History Medical History (Updated 07/14/24 @ 07:36 by Felton Newton DO) Coronary artery disease reported obstructing coronary disease negative Lexiscan Myoview 04/29/2024 Dyslipidemia Morbid obesity Myocardial infarction (2011) hospitalized [facility]-no intervention Obstructive sleep apnea intolerant to CPAP Type 2 diabetes mellitus Surgical History Surgical History (Updated 07/13/24 @ 22:58 by Leia Munroe PA-C) No history of previous surgery Family History Family History Sibling Diabetes mellitus History of blood clots Chronic obstructive pulmonary disease Social History Social History (Updated 07/13/24 @ 23:11 by Leia Munroe PA-C) Social History: Surrogate medical decision maker: Kelly Ramirez, mother. Code status: Full code. Smoking packs per day: 3 Smoking cigarettes per day: 60.0 Years smoked: 25 Smoking pack-years: 75.00 Smoking status: Former smoker Tobacco type: cigarettes Second hand tobacco smoke exposure: No Alcohol intake: never Substance use: never Substance use type: does not use Do You Feel Safe in your Home?: Yes Lack of Transportation: No Lack of Food: Never True Current Housing: I Have Housing Concerned About Future Housing: No Difficulty Paying Gas/Electric Bills: No Difficulty Paying for Meds: No Currently Unemployed: No Education: High School Diploma/GED Difficulty w/ Childcare or Family Care: No Living arrangements: with family Additional living arrangements comments: The patient lives with his mother and their two [place]ies in [place]. 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 Spiritual care concerns: Yes (Gnosticist) Agree to blood products: Yes Meds Home Medications and Allergies Home Medications Medication Instructions Recorded Confirmed Type aspirin 325 mg tablet 325 mg PO DAILY 09/20/22 07/13/24 History glimepiride 1 mg tablet 1 mg PO QAM #30 tabs 09/27/23 07/13/24 Rx metformin 1,000 mg tablet 1,000 mg PO BID 30 days #180 tabs 09/27/23 07/13/24 Rx empagliflozin 25 mg tablet 25 mg PO DAILY #90 tabs 03/25/24 07/13/24 Rx (Jardiance) simvastatin 10 mg tablet 10 mg PO DAILY #90 tabs 06/11/24 07/13/24 Rx furosemide 40 mg tablet 40 mg PO DAILY 07/13/24 07/13/24 History lisinopril 40 mg tablet 40 mg PO DAILY 07/13/24 07/13/24 History Allergies Allergy/AdvReac Type Severity Reaction Status Date / Time No Known Allergies Allergy Verified 07/13/24 12:46 Vital Signs Vital Signs - 24 hr 07/13/24 12:16 07/13/24 12:45 07/13/24 16:51 Temperature 97.5 F L Pulse Rate 61 167 H Respiratory Rate 17 17 Blood Pressure 132/82 131/111 H Pulse Oximetry 98 98 98 Oxygen Delivery Room Air Room Air 07/13/24 17:00 07/13/24 17:20 07/13/24 17:33 Temperature Pulse Rate 155 H 175 H 173 H Respiratory Rate 22 H Blood Pressure 150/93 H 142/118 H Pulse Oximetry 97 Oxygen Delivery 07/13/24 18:18 07/13/24 18:24 07/13/24 19:18 Temperature Pulse Rate 154 H 153 H 144 H Respiratory Rate 25 H Blood Pressure 109/84 Pulse Oximetry 96 Oxygen Delivery 07/13/24 19:18 07/13/24 19:25 07/13/24 19:38 Temperature Pulse Rate 146 H 114 H 122 H Respiratory Rate 20 20 22 H Blood Pressure 140/95 H 99/72 L 147/84 H Pulse Oximetry 99 99 100 Oxygen Delivery 07/13/24 20:18 07/13/24 19:40 07/13/24 19:59 Temperature Pulse Rate 120 H 119 H Respiratory Rate 18 Blood Pressure 109/72 Pulse Oximetry 96 Oxygen Delivery 07/13/24 20:02 07/13/24 20:15 07/13/24 20:16 Temperature Pulse Rate 110 H 112 H Respiratory Rate 24 H 26 H Blood Pressure 106/62 109/72 Pulse Oximetry 98 99 99 Oxygen Delivery 07/13/24 20:17 07/13/24 20:34 07/13/24 20:39 Temperature Pulse Rate 114 H 95 93 Respiratory Rate 23 H 22 H Blood Pressure 102/68 102/68 Pulse Oximetry 96 100 Oxygen Delivery 07/13/24 20:41 07/13/24 20:57 07/13/24 21:12 Temperature Pulse Rate 98 96 81 Respiratory Rate 20 17 Blood Pressure 102/68 106/70 Pulse Oximetry 97 97 Oxygen Delivery 07/13/24 21:36 07/13/24 23:39 07/14/24 01:53 CDT Temperature 99.9 F H 98.9 F Pulse Rate 102 H 95 85 Respiratory Rate 20 20 Blood Pressure 99/76 L 109/65 Pulse Oximetry 96 100 Oxygen Delivery 07/13/24 23:39 07/13/24 21:23 07/14/24 00:24 Temperature Pulse Rate 95 102 H 77 Respiratory Rate Blood Pressure 109/65 99/76 L 109/65 Pulse Oximetry Oxygen Delivery 07/13/24 21:33 07/13/24 22:00 07/14/24 00:00 Temperature Pulse Rate 110 H 111 H 96 Respiratory Rate Blood Pressure Pulse Oximetry Oxygen Delivery 07/14/24 01:39 FAMILY MEDICINE PHYSICIAN ASSISTANT 07/14/24 02:22 07/13/24 21:40 Temperature 98.1 F Pulse Rate 82 86 102 H Respiratory Rate 14 20 Blood Pressure 120/81 120/81 Pulse Oximetry 96 96 Oxygen Delivery Room Air 07/14/24 00:15 07/14/24 02:22 07/13/24 21:36 Temperature Pulse Rate 95 86 102 H Respiratory Rate 20 Blood Pressure 120/81 99/76 L Pulse Oximetry 100 Oxygen Delivery Room Air 07/13/24 23:39 07/14/24 01:39 CDT 07/14/24 03:41 Temperature 97.8 F Pulse Rate 95 82 88 Respiratory Rate 16 Blood Pressure 109/65 120/81 110/71 Pulse Oximetry 95 Oxygen Delivery 07/14/24 03:39 07/14/24 04:00 07/14/24 04:00 Temperature Pulse Rate 81 81 88 Respiratory Rate 20 Blood Pressure 131/62 Pulse Oximetry 94 Oxygen Delivery Room Air 07/14/24 06:00 07/14/24 06:16 07/14/24 06:16 Temperature 98.0 F Pulse Rate 96 96 96 Respiratory Rate 16 Blood Pressure 115/80 115/80 Pulse Oximetry 98 Oxygen Delivery Exam Const: General: cooperative, healthy appearing, comfortable and obese Resp: Auscultation: clear to auscultation bilaterally, no crackles, no rales, no rhonchi and no wheezes Cardio: Rate: regular rate Rhythm: abnormal rhythm Heart sounds: no murmurs GI: GI Palp: No abdominal tenderness and Yes Soft to palpation Neuro: General: oriented to person, oriented to place and oriented to time Extrem: Right lower extremity: edema Left lower extremity: edema Other: Mod right leg edema and foot is wrapped. Left leg with mild edema. Results Labs and Meds 07/13/24 15:08 07/13/24 15:08 Lab results: Cardiac Enzymes 07/13/24 07/13/24 Range/Units 15:08 23:28 AST 75 H (17-59) U/L Troponin I 0.018 (0.000-0.034) ng/mL Coagulation 07/13/24 07/14/24 Range/Units 15:08 00:32 PT 14.9 H (11.1-14.7) Seconds APTT 29.9 39.6 H (22.3-36.8) Seconds CBC 07/13/24 Range/Units 15:08 WBC 13.3 H (4.5-10.0) K/mm3 RBC 4.72 (4.6-6.20) M/mm3 Hgb 13.6 L (14.0-18.0) g/dL Hct 41.3 L (42.0-52.0) % Plt Count 434 H (150-375) k/mm3 Lymph # (Auto) 2.25 (0.9-3.2) K/mm3 [place] # (Auto) 1.1 H (0.1-0.6) K/mm3 Eos # (Auto) 0.1 (0-0.3) K/mm3 Baso # (Auto) 0.1 (0.0-0.1) K/mm3 Comprehensive Metabolic Panel 07/13/24 Range/Units 15:08 Sodium 132 L (137-145) mmol/L Potassium 3.7 (3.4-5.0) mmol/L Chloride 93 L (98-107) mmol/L Carbon Dioxide 28 (22-30) mmol/L BUN 14 (9-20) mg/dL Creatinine 0.90 (0.7-1.3) mg/dL Glucose 144 H (65-110) mg/dL Calcium 8.6 (8.4-10.2) mg/dL AST 75 H (17-59) U/L ALT 55 H (6-50) U/L Alkaline Phosphatase 174 H (38-126) U/L Total Protein 9.0 H (6.3-8.2) g/dL Albumin 3.9 (3.5-5.1) g/dL Intake and Output 07/13/24 07/13/24 07/14/24 15:59 23:59 06:59 Intake Total 2037.7 1809.2 Output Total 650 Balance 2037.7 1159.2 Intake: IV 2037.7 1409.2 Amiodarone 150 mg/D5w 100 ml 100 150 mg In 100 ml @ 300 mls/hr IV CONT .Q20M [facility] Rx#:[id number] Amiodarone 360 mg/D5w 200 ml 98.9 166.1 360 mg In 200 ml @ 0.5 MG/MIN 16.667 mls/hr IV CONT .Q12H [facility] Rx#:[id number] Heparin Sod/D5w 100 Units/ml 25 104.3 ,000 units In 250 ml @ 2,000 UNITS/HR 20 mls/hr IV CONT . [id number] [facility] Rx#:[id number] Sodium Chloride 0.9% IV 1,000 1000 1000 ml @ 999 mls/hr IV CONT .Q1H1M [facility] Rx#:[id number] dilTIAZem 100 MG/100 ML 100 mg 88.8 88.8 In 100 ml @ 5 MG/HR 5 mls/hr IV CONT .Q20H [facility] Rx#:[id number] Cefepime 2 gm/Ns 50 ml 2 gm In 50 50 50 ml @ 100 mls/hr IVPB Q12HR [facility] Rx#:[id number] Vancomycin 1,250 mg/Ns 250 ml 1 500 ,250 mg In 250 ml @ 166.667 mls /hr IVPB ONCE ONE Rx#:[id number] metroNIDAZOLE 500 MG/ISO 100ML 200 500 mg In 100 ml @ 100 mls/hr IVPB Q8HR [facility] Rx#:[id number] Oral 400 Output: Urine 650 Other: # Unmeasured Voids 2 Patient Weight 07/14/24 22:59 Weight 176.2 kg
[2024-07-14] MEDS: HEPARIN SOD/D5W 100 UNITS/ML 25,000 UNITS/250 ML BAG 20 UNITS IV CONT (07:38)
[2024-07-14 07:40] LABS: Basophils Absolute Auto 0.1 K/mm3 (0.0-0.1); Basophils Percent Auto 0.5 % (0.2-1.2); Eosinophils Absolute Auto 0.1 K/mm3 (0-0.3); Eosinophils Percent Auto 0.5 % (0-4.4); Hematocrit 35.9 % (42.0-52.0); Hemoglobin 11.6 g/dL (14.0-18.0); Immature Granulocyte Absolute 0.51 K/mm3 (0.00-0.031); Lymphocytes Absolute Auto 2.28 K/mm3 (0.9-3.2); Lymphocytes Percent Auto 17.7 % (18.3-44.2); Mean Corpuscular HGB Conc 32.3 g/dl (32-36); Mean Corpuscular Hemoglobin 28.6 pg (26-34); Mean Corpuscular Volume 88.6 fl (80-100); Mean Platelet Volume 9.9 fl (7.4-10.4); Monocytes Absolute Auto 1.1 K/mm3 (0.1-0.6); Monocytes Percent Auto 8.1 % (2.6-8.5); Neutrophils Absolute Auto 8.9 K/mm3 (1.3-6.7); Neutrophils Percent Auto 69.2 % (45.5-73.1); Platelet Count Result 405 k/mm3 (150-375); Red Blood Count 4.05 M/mm3 (4.6-6.20); Red Cell Distribution Width 14.6 % (11.5-14.5); White Blood Count 12.9 K/mm3 (4.5-10.0)
[2024-07-14 07:53] LABS: Partial Thromboplastin Time 65.6 Seconds (22.3-36.8)
[2024-07-14 08:11] LABS: Alanine Aminotransferase 47 U/L (6-50); Albumin Level 3.3 g/dL (3.5-5.1); Alkaline Phosphatase 137 U/L (38-126); Anion Gap 11 mmol/L (4-12); Aspartate Amino Transferase 68 U/L (17-59); Bilirubin,Total 0.9 mg/dL (0.2-1.3); Blood Urea Nitrogen 14 mg/dL (9-20); Calcium 7.5 mg/dL (8.4-10.2); Carbon Dioxide 24 mmol/L (22-30); Chloride 98 mmol/L (98-107); Estimated CRCL calculation 130 ml/min; Estimated Glomerular Filt Rate > 60; Glucose 125 mg/dL (65-110); Potassium 3.6 mmol/L (3.4-5.0); Sodium 133 mmol/L (137-145)
[2024-07-14 08:14] LABS: Glucose Point of Care 128 mg/dl (65-105)
[2024-07-14] MEDS: ATORVASTATIN 10 MG TABLET PO (10:30)
[2024-07-14] MEDS: GLIMEPIRIDE 1 MG TABLET PO (10:30)
[2024-07-14] MEDS: FUROSEMIDE INJ 40 MG/4 ML VIAL IV PUSH (10:30)
[2024-07-14] MEDS: EMPAGLIFLOZIN 25 MG TABLET PO (10:30)
[2024-07-14] MEDS: VANCOMYCIN 1,500 MG/NS 500 ML 1,500 MG/500 ML BAG 250 MG IVPB ×2 (10:38→21:28)
[2024-07-14 11:01] LABS: Glucose Point of Care 133 mg/dl (65-105)
[2024-07-14 12:15] LABS: Partial Thromboplastin Time 47.7 Seconds (22.3-36.8)
--- NOTE | 2024-07-14 12:29 | WPDCN ---
Assessment and Plan Assessment and plan (1) Diabetic ulcer of right foot: Code(s): E11.621 - Type 2 diabetes mellitus with foot ulcer; L97.519 - Non-pressure chronic ulcer of other part of right foot with unspecified severity Status: Acute Assessment and Plan: Patient has a diabetic right foot ulcer with associated abscess. It will need to be drained tomorrow. He also has osteomyelitis. He may need a long-term IV antibiotic treatment for the osteomyelitis. Presently there are no gangrenous toes. He will need to stop his heparin drip tomorrow for the procedure. Will stop the heparin drip in the morning after we find out when the procedure will be scheduled. (2) Osteomyelitis of right foot: Code(s): M86.9 - Osteomyelitis, unspecified Status: Acute Assessment and Plan: Osteomyelitis of the right 5th metatarsal on x-ray. Will I and D the abscess tomorrow and assess the underlying bone. For now I do not anticipate amputation of the right 5th toe but that is a possibility. He may need a PICC line and 6 weeks of IV antibiotics. (3) Atrial fibrillation with rapid ventricular response: Code(s): I48.91 - Unspecified atrial fibrillation Status: Acute Assessment and Plan: Currently on heparin drip and amiodarone drip. Managed by Cardiology and hospitalist service. (4) Bilateral pulmonary embolism: Code(s): I26.99 - Other pulmonary embolism without acute cor pulmonale Status: Acute Assessment and Plan: On heparin drip right now. Eventually will need to be converted to oral systemic anticoagulation. (5) Deep vein thrombosis of right lower extremity: Code(s): I82.401 - Acute embolism and thrombosis of unspecified deep veins of right lower extremity Status: Acute Assessment and Plan: Continue with heparin drip. Will need oral anticoagulation for at least 6 months. HPI Data of Consult Date/Time: 07/14/24 12:29 Requesting Physician: Charlie Hamitlon MD Primary Care Provider: Katarzyna Sanchez MD Consult Narrative Reason for consult: Diabetic right foot ulcer Narrative: Benny Ramirez is a 59 year old male admitted to the hospital after he complained of having some fevers and chills at home. He did not have any shortness of breath or any chest pain. Upon workup in the emergency room he was noted to have atrial fibrillation with rapid ventricular response. Was also noted to have a draining ulcer on the lateral aspect of the right foot with severe associated cellulitis. X-ray showed osteomyelitis of the right 5th metatarsal with abscess and air in the subcutaneous tissues. He was also found to have a right lower extremity DVT as well as bilateral pulmonary emboli. Patient denies any prior wounds on his feet or legs the would not heal. He is a diabetic that takes oral hypoglycemics but no insulin. He has obstructive sleep apnea intolerant to CPAP at home. 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 He was admitted to the hospital on broad-spectrum IV antibiotics started on a heparin drip for his PEs and DVTs. Amiodarone drip was started for his atrial fibrillation and VAC rapid ventricular response. Cardiology consult has been ordered. Review of Systems Review of Systems: The remainder of the review of systems to include constitutional, HEENT, cardiovascular, respiratory, GI, , integumentary, musculoskeletal, endocrine, immunologic, hematologic, psychiatric, and neurologic are all negative except for which is mentioned above in the HPI. [facility] Past Medical History Medical History Coronary artery disease reported obstructing coronary disease negative Lexiscan Myoview 04/29/2024 Dyslipidemia Morbid obesity Myocardial infarction (2011) hospitalized [facility]-no intervention Obstructive sleep apnea intolerant to CPAP Type 2 diabetes mellitus Surgical History Surgical History No history of previous surgery Family History Family History Sibling Diabetes mellitus History of blood clots Chronic obstructive pulmonary disease Social History Social History Social History: Surrogate medical decision maker: Kelly Ramirez, mother. Code status: Full code. Smoking packs per day: 3 Smoking cigarettes per day: 60.0 Years smoked: 25 Smoking pack-years: 75.00 Smoking status: Former smoker Tobacco type: cigarettes Second hand tobacco smoke exposure: No Alcohol intake: never Substance use: never Substance use type: does not use Do You Feel Safe in your Home?: Yes Lack of Transportation: No Lack of Food: Never True Current Housing: I Have Housing Concerned About Future Housing: No Difficulty Paying Gas/Electric Bills: No Difficulty Paying for Meds: No Currently Unemployed: No Education: High School Diploma/GED Difficulty w/ Childcare or Family Care: No Living arrangements: with family Additional living arrangements comments: The patient lives with his mother and their two [place] in [place]. 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 Spiritual care concerns: Yes ([employer]) Agree to blood products: Yes Meds Home Medications and Allergies Home Medications Medication Instructions Recorded Confirmed Type aspirin 325 mg tablet 325 mg PO DAILY 09/20/22 07/13/24 History glimepiride 1 mg tablet 1 mg PO QAM #30 tabs 09/27/23 07/13/24 Rx metformin 1,000 mg tablet 1,000 mg PO BID 30 days #180 tabs 09/27/23 07/13/24 Rx empagliflozin 25 mg tablet 25 mg PO DAILY #90 tabs 03/25/24 07/13/24 Rx (Jardiance) simvastatin 10 mg tablet 10 mg PO DAILY #90 tabs 06/11/24 07/13/24 Rx furosemide 40 mg tablet 40 mg PO DAILY 07/13/24 07/13/24 History lisinopril 40 mg tablet 40 mg PO DAILY 07/13/24 07/13/24 History Allergies Allergy/AdvReac Type Severity Reaction Status Date / Time No Known Allergies Allergy Verified 07/13/24 12:46 Vital Signs Vital Signs - 24 hr 07/13/24 16:51 07/13/24 17:00 07/13/24 17:20 Temperature Pulse Rate 167 H 155 H 175 H Respiratory Rate 17 22 H Blood Pressure 131/111 H 150/93 H 142/118 H Pulse Oximetry 98 97 Oxygen Delivery 07/13/24 17:33 07/13/24 18:18 07/13/24 18:24 Temperature Pulse Rate 173 H 154 H 153 H Respiratory Rate 25 H Blood Pressure 109/84 Pulse Oximetry 96 Oxygen Delivery 07/13/24 19:18 07/13/24 19:18 07/13/24 19:25 Temperature Pulse Rate 144 H 146 H 114 H Respiratory Rate 20 20 Blood Pressure 140/95 H 99/72 L Pulse Oximetry 99 99 Oxygen Delivery 07/13/24 19:38 07/13/24 20:18 07/13/24 19:40 Temperature Pulse Rate 122 H 120 H 119 H Respiratory Rate 22 H 18 Blood Pressure 147/84 H 109/72 Pulse Oximetry 100 Oxygen Delivery 07/13/24 19:59 07/13/24 20:02 07/13/24 20:15 Temperature Pulse Rate 110 H Respiratory Rate 24 H Blood Pressure 106/62 Pulse Oximetry 96 98 99 Oxygen Delivery 07/13/24 20:16 07/13/24 20:17 07/13/24 20:34 Temperature Pulse Rate 112 H 114 H 95 Respiratory Rate 26 H 23 H 22 H Blood Pressure 109/72 102/68 Pulse Oximetry 99 96 100 Oxygen Delivery 07/13/24 20:39 07/13/24 20:41 07/13/24 20:57 Temperature Pulse Rate 93 98 96 Respiratory Rate 20 Blood Pressure 102/68 102/68 106/70 Pulse Oximetry 97 Oxygen Delivery 07/13/24 21:12 07/13/24 21:36 07/13/24 23:39 Temperature 37.7 C H 37.2 C Pulse Rate 81 102 H 95 Respiratory Rate 17 20 20 Blood Pressure 99/76 L 109/65 Pulse Oximetry 97 96 100 Oxygen Delivery 07/14/24 01:53 CDT 07/13/24 23:39 07/13/24 21:23 Temperature Pulse Rate 85 95 102 H Respiratory Rate Blood Pressure 109/65 99/76 L Pulse Oximetry Oxygen Delivery 07/14/24 00:24 07/13/24 21:33 07/13/24 22:00 Temperature Pulse Rate 77 110 H 111 H Respiratory Rate Blood Pressure 109/65 Pulse Oximetry Oxygen Delivery 07/14/24 00:00 07/14/24 01:39 [employer]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 07/14/24 02:22 Temperature 36.7 C Pulse Rate 96 82 86 Respiratory Rate 14 Blood Pressure 120/81 120/81 Pulse Oximetry 96 Oxygen Delivery 07/13/24 21:40 07/14/24 00:15 07/14/24 02:22 Temperature Pulse Rate 102 H 95 86 Respiratory Rate 20 20 Blood Pressure 120/81 Pulse Oximetry 96 100 Oxygen Delivery Room Air Room Air 07/13/24 21:36 07/13/24 23:39 07/14/24 01:39 CDT Temperature Pulse Rate 102 H 95 82 Respiratory Rate Blood Pressure 99/76 L 109/65 120/81 Pulse Oximetry Oxygen Delivery 07/14/24 03:41 07/14/24 03:39 07/14/24 04:00 Temperature 36.6 C Pulse Rate 88 81 81 Respiratory Rate 16 20 Blood Pressure 110/71 131/62 Pulse Oximetry 95 94 Oxygen Delivery Room Air 07/14/24 04:00 07/14/24 06:00 07/14/24 06:16 Temperature 36.7 C Pulse Rate 88 96 96 Respiratory Rate 16 Blood Pressure 115/80 Pulse Oximetry 98 Oxygen Delivery 07/14/24 06:16 07/14/24 08:16 07/14/24 07:30 Temperature 36.6 C Pulse Rate 96 87 87 Respiratory Rate 20 20 Blood Pressure 115/80 91/56 L Pulse Oximetry 100 100 Oxygen Delivery Room Air 07/14/24 10:51 07/14/24 11:51 Temperature 36.7 C Pulse Rate 106 H 93 Respiratory Rate 20 Blood Pressure 143/90 H 133/82 Pulse Oximetry 100 Oxygen Delivery Exam Const: General: comfortable and no acute distress HENMT: Ears: TM's normal bilaterally Face/Nose/Sinus: Normal nares present Mouth: Yes moist mucous membranes Eyes: General: appearance normal, both eyes and all related structures Sclera: sclerae normal Pupils: Equal, round and reactive pupils present EOM: EOMs intact bilaterally Neck: Neck: supple and no JVD Resp: Effort & Inspection: normal respiratory effort Auscultation: clear to auscultation bilaterally Cardio: Rhythm: abnormal rhythm (Irregularly irregular, AFib) GI: Other: Is morbidly obese. Soft and nondistended nontender. Benign. Neuro: General: gait normal Speech: normal speech Motor exam (neuro): 5/5 motor strength present throughout Sensory Exam: normal sensation Extrem: Other: Patient has an area of erythema and fluctuance on the lateral aspect of the right foot along the distal portion of the right 5th metatarsal. There is a penetrating ulcer on the plantar surface of the lateral right foot which extends to the dorsal surface and there is drainage of small amount of purulence. There is surrounding erythema and only mild tenderness. He is able to move all of his toes. There is no gangrene of the toes. The foot is warm. Wounds on the right leg or left leg or left foot. Psych: Mental Status: mental status grossly normal Affect: normal affect Results Labs 07/14/24 07:36 07/14/24 07:34 Labs: Short CBC 07/13/24 07/14/24 Range/Units 15:08 07:36 WBC 13.3 H 12.9 H (4.5-10.0) K/mm3 Hgb 13.6 L 11.6 L (14.0-18.0) g/dL Hct 41.3 L 35.9 L (42.0-52.0) % Plt Count 434 H 405 H (150-375) k/mm3 BMP 07/13/24 07/14/24 15:08 07:34 Sodium 132 L 133 L Potassium 3.7 3.6 Chloride 93 L 98 Carbon Dioxide 28 24 BUN 14 14 Creatinine 0.90 0.90 Glucose 144 H 125 H Calcium 8.6 7.5 L Cardiac Enzymes 07/13/24 Range/Units 23:28 Total Creatine Kinase 293 H (55-170) U/L Troponin I 0.018 (0.000-0.034) ng/mL Liver Function 07/13/24 07/14/24 Range/Units 15:08 07:34 Total Bilirubin 0.9 0.9 (0.2-1.3) mg/dL AST 75 H 68 H (17-59) U/L ALT 55 H 47 (6-50) U/L Alkaline Phosphatase 174 H 137 H (38-126) U/L Albumin 3.9 3.3 L (3.5-5.1) g/dL
--- NOTE | 2024-07-14 14:56 | P.PNIM_ITS ---
Progress Note: A&P Assessment and Plan (1) Sepsis: Code(s): A41.9 - Sepsis, unspecified organism Status: Acute (2) Osteomyelitis of right foot: Code(s): M86.9 - Osteomyelitis, unspecified Status: Acute (3) Diabetic ulcer of right foot: Code(s): E11.621 - Type 2 diabetes mellitus with foot ulcer; L97.519 - Non-pressure chronic ulcer of other part of right foot with unspecified severity Status: Acute (4) Diabetic infection of right foot: Code(s): E11.628 - Type 2 diabetes mellitus with other skin complications; L08.9 - Local infection of the skin and subcutaneous tissue, unspecified Status: Acute (5) Deep vein thrombosis of right lower extremity: Code(s): I82.401 - Acute embolism and thrombosis of unspecified deep veins of right lower extremity Status: Acute (6) Bilateral pulmonary embolism: Code(s): I26.99 - Other pulmonary embolism without acute cor pulmonale Status: Acute (7) Atrial fibrillation with rapid ventricular response: Code(s): I48.91 - Unspecified atrial fibrillation Status: Acute (8) Elevated LFTs: Code(s): R79.89 - Other specified abnormal findings of blood chemistry Status: Acute (9) Hypertension: Code(s): I10 - Essential (primary) hypertension Status: Acute (10) Type 2 diabetes mellitus: Code(s): E11.9 - Type 2 diabetes mellitus without complications Status: Acute (11) Obstructive sleep apnea: Code(s): G47.33 - Obstructive sleep apnea (adult) (pediatric) Status: Acute Plan Diabetic right foot ulcer with osteomyelitis Osteomyelitis of distal fifth metatarsal bone and base of proximal phalanx of fifth digit, with adjacent soft tissue swelling, subcutaneous emphysema Blood culture pending Continue Vanc, Cefepime and Flagyl Gen surgery consulted for I and D tomorrow PE/DVT CT chest and Venous doppler showed DVT RLE Continue Heparin infusion ECHO pending Afib RVR, new onset [id number] 2 Amiodarone drip and Heparin infusion ECHO pending DM2 SSi with accucheks HTN titrate home meds with clinical course RADHA on CPAP DVT prophylaxis on heparin infusion Subjective Date/time seen: 07/14/24 14:56 Interval history: Comfortable at bedside Review of Systems Review of Systems: 12 systems were reviewed and are negativ e except for as per HPI. Exam Narrative: General: Moderately ill-appearing male in the semi-Bedoya position in bed. Weight: 172.6 kg. BMI: 51.6. HEENT: Wearing corrective lenses. PERRL, EOMI. Sclera anicteric. Tacky mucous membranes. Oropharynx is crowded. Neck: Supple. Exam limited due to neck circumference. No obvious JVD or lymphadenopathy. Respiratory: Respirations are nonlabored and he is speaking in full sentences. Lungs are clear to auscultation. Cardiovascular: Irregularly irregular rate and rhythm. Gastrointestinal: Abdomen is soft, morbidly obese, nontender, and nondistended with positive bowel sounds. Skin: Warm and dry. There is an ulcerative lesion on the lateral plantar aspect of the right foot draining malodorous, purulent fluid with surrounding warmth and erythema. No obvious crepitus noted. Extremities: No cyanosis or clubbing. Legs are large. There is pitting edema of the right lower extremity. No obvious palpable knots or cords. Neurological: Alert. Cranial nerves 2-12 are grossly intact. No gross focal deficits to casual conversation. Psychiatric: Pleasant and cooperative with normal mood and affect. Judgment and insight intact. Objective Data Vital Signs Vital Signs: Vital Signs - 24 hr 07/13/24 16:51 07/13/24 17:00 07/13/24 17:20 Temperature Pulse Rate 167 H 155 H 175 H Respiratory Rate 17 22 H Blood Pressure 131/111 H 150/93 H 142/118 H Pulse Oximetry 98 97 Oxygen Delivery 07/13/24 17:33 07/13/24 18:18 07/13/24 18:24 Temperature Pulse Rate 173 H 154 H 153 H Respiratory Rate 25 H Blood Pressure 109/84 Pulse Oximetry 96 Oxygen Delivery 07/13/24 19:18 07/13/24 19:18 07/13/24 19:25 Temperature Pulse Rate 144 H 146 H 114 H Respiratory Rate 20 20 Blood Pressure 140/95 H 99/72 L Pulse Oximetry 99 99 Oxygen Delivery 07/13/24 19:38 07/13/24 20:18 07/13/24 19:40 Temperature Pulse Rate 122 H 120 H 119 H Respiratory Rate 22 H 18 Blood Pressure 147/84 H 109/72 Pulse Oximetry 100 Oxygen Delivery 07/13/24 19:59 07/13/24 20:02 07/13/24 20:15 Temperature Pulse Rate 110 H Respiratory Rate 24 H Blood Pressure 106/62 Pulse Oximetry 96 98 99 Oxygen Delivery 07/13/24 20:16 07/13/24 20:17 07/13/24 20:34 Temperature Pulse Rate 112 H 114 H 95 Respiratory Rate 26 H 23 H 22 H Blood Pressure 109/72 102/68 Pulse Oximetry 99 96 100 Oxygen Delivery 07/13/24 20:39 07/13/24 20:41 07/13/24 20:57 Temperature Pulse Rate 93 98 96 Respiratory Rate 20 Blood Pressure 102/68 102/68 106/70 Pulse Oximetry 97 Oxygen Delivery 07/13/24 21:12 07/13/24 21:36 07/13/24 23:39 Temperature 99.9 F H 98.9 F Pulse Rate 81 102 H 95 Respiratory Rate 17 20 20 Blood Pressure 99/76 L 109/65 Pulse Oximetry 97 96 100 Oxygen Delivery 07/14/24 01:53 CDT 07/13/24 23:39 07/13/24 21:23 Temperature Pulse Rate 85 95 102 H Respiratory Rate Blood Pressure 109/65 99/76 L Pulse Oximetry Oxygen Delivery 07/14/24 00:24 07/13/24 21:33 07/13/24 22:00 Temperature Pulse Rate 77 110 H 111 H Respiratory Rate Blood Pressure 109/65 Pulse Oximetry Oxygen Delivery 07/14/24 00:00 07/14/24 01:39 [employer] 07/14/24 02:22 Temperature 98.1 F Pulse Rate 96 82 86 Respiratory Rate 14 Blood Pressure 120/81 120/81 Pulse Oximetry 96 Oxygen Delivery 07/13/24 21:40 07/14/24 00:15 07/14/24 02:22 Temperature Pulse Rate 102 H 95 86 Respiratory Rate 20 20 Blood Pressure 120/81 Pulse Oximetry 96 100 Oxygen Delivery Room Air Room Air 07/13/24 21:36 07/13/24 23:39 07/14/24 01:39 CDT Temperature Pulse Rate 102 H 95 82 Respiratory Rate Blood Pressure 99/76 L 109/65 120/81 Pulse Oximetry Oxygen Delivery 07/14/24 03:41 07/14/24 03:39 07/14/24 04:00 Temperature 97.8 F Pulse Rate 88 81 81 Respiratory Rate 16 20 Blood Pressure 110/71 131/62 Pulse Oximetry 95 94 Oxygen Delivery Room Air 07/14/24 04:00 07/14/24 06:00 07/14/24 06:16 Temperature 98.0 F Pulse Rate 88 96 96 Respiratory Rate 16 Blood Pressure 115/80 Pulse Oximetry 98 Oxygen Delivery 07/14/24 06:16 07/14/24 08:16 07/14/24 07:30 Temperature 98 F Pulse Rate 96 87 87 Respiratory Rate 20 20 Blood Pressure 115/80 91/56 L Pulse Oximetry 100 100 Oxygen Delivery Room Air 07/14/24 10:51 07/14/24 11:51 07/14/24 14:23 Temperature 98.1 F Pulse Rate 106 H 93 120 H Respiratory Rate 20 Blood Pressure 143/90 H 133/82 Pulse Oximetry 100 Oxygen Delivery 07/14/24 14:41 07/14/24 14:03 07/14/24 08:00 Temperature Pulse Rate 120 H 121 H 95 Respiratory Rate Blood Pressure 128/76 Pulse Oximetry Oxygen Delivery 07/14/24 10:00 07/14/24 12:00 07/14/24 14:00 Temperature Pulse Rate 80 100 106 H Respiratory Rate Blood Pressure Pulse Oximetry Oxygen Delivery 07/14/24 08:00 07/14/24 10:00 07/14/24 12:00 Temperature Pulse Rate 87 80 93 Respiratory Rate Blood Pressure 91/56 L 143/90 H 133/82 Pulse Oximetry Oxygen Delivery 07/14/24 14:00 Temperature Pulse Rate 106 H Respiratory Rate Blood Pressure 128/76 Pulse Oximetry Oxygen Delivery Intake/Output Intake/Output: Intake & Output 07/11/24 07/12/24 07/13/24 07/14/24 23:59 23:59 23:59 22:59 Intake Total 2037.7 2471.6 Output Total 650 Balance 2037.7 1821.6 Meds/Results Medications: Active Medications Generic Name Dose Route Start Last Admin Trade Name Freq PRN Reason Stop Dose Admin Acetaminophen 650 mg 07/13/24 23:05 Acetaminophen 325 Mg Tablet PO Q6H PRN Mild Pain (1-3) or Fever Atorvastatin Calcium 10 mg 07/14/24 09:00 07/14/24 10:30 Atorvastatin 10 Mg Tablet PO 10 mg DAILY RASTA Administration Dextrose 12.5 gm 07/13/24 23:05 Dextrose 50% 25 Gm/50 Ml Syringe IV PUSH PRN PRN Hypoglycemia Protocol Empagliflozin 25 mg 07/14/24 09:00 07/14/24 10:30 Empagliflozin 25 Mg Tablet PO 25 mg DAILY RASTA Administration Furosemide 40 mg 07/14/24 09:00 07/14/24 10:30 Furosemide Inj 40 Mg/4 Ml Vial IV PUSH 40 mg DAILY RASTA Administration Glimepiride 1 mg 07/14/24 09:00 07/14/24 10:30 Glimepiride 1 Mg Tablet PO 1 mg QAM RASTA Administration Glucagon 1 mg 07/13/24 23:05 Glucagon For Inj 1 Mg Vial IM PRN PRN Hypoglycemia Protocol Glucose 15 gm 07/13/24 23:05 Glucose Oral Gel 15 Gm Of Glucse In 37.5 Gm Tube PO PRN PRN Hypoglycemia Protocol Heparin Sodium (Porcine) 9,000 units 07/13/24 17:07 07/14/24 12:42 Heparin Sodium 5,000 Units/Ml Vial IV PUSH 9,000 units PRN PRN Administration aPTT less than 55 seconds Heparin Sodium (Porcine) 4,500 units 07/13/24 17:07 Heparin Sodium 5,000 Units/Ml Vial IV PUSH PRN PRN aPTT 55 - 70 seconds Cefepime HCl 2 gm in 50 mls @ 100 mls/hr 07/14/24 00:00 07/14/24 10:38 Maxipime 2 Gm/Ns 50 Ml IVPB 100 mls/hr Q12HR RASTA Administration Metronidazole 500 mg in 100 mls @ 100 mls/hr 07/13/24 23:00 07/14/24 14:42 Flagyl 500 Mg/Iso Soln 100 Ml IVPB 100 mls/hr Q8HR RASTA Administration Heparin Sodium/Dextrose 25,000 units in 250 mls @ 25 mls/hr 07/13/24 17:10 07/14/24 12:43 Heparin Sodium/D5w 100 Units/Ml IV CONT 2,500 units/hr .Q10H RASTA 25 mls/hr Titration Protocol 2,500 UNITS/HR Amiodarone HCl/Dextrose 360 mg in 200 mls @ 16.667 mls/hr 07/14/24 00:58 07/14/24 14:41 Nexterone 360 Mg/D5w 200 Ml IV CONT 0.5 mg/min .Q12H RASTA 16.67 mls/hr Administration 0.5 MG/MIN Vancomycin HCl 1,500 mg in 500 mls @ 250 mls/hr 07/14/24 08:00 07/14/24 10:38 Vancomycin 1,500 Mg/Ns 500 Ml IVPB 250 mls/hr Q12H RASTA Administration Dextrose 1,000 mls @ 100 mls/hr 07/13/24 23:05 Dextrose 5% 1,000 Ml IVPB PRN PRN Hypoglycemia Protocol Insulin Aspart 3 - 6 units 07/14/24 08:00 07/14/24 11:19 Insulin Aspart (*Bkc) 100 Units/Ml SUB-Q Not Given TIDWM RASTA Protocol Insulin Aspart 1 - 3 units 07/13/24 23:10 07/13/24 23:49 Insulin Aspart (*Bkc) 100 Units/Ml SUB-Q Not Given HS RASTA Protocol Perflutren Lipid Microsphere 0 ml 07/13/24 23:05 Perflutren Lipid Microspheres 1.5 Ml Vial Diluted To 10 Ml Total Volume IV PUSH 07/16/24 23:05 ONCE PRN adequate visualization Protocol Radiology Results: ITS Impressions Venous Doppler Study 07/13/24 15:06 IMPRESSION: 1. Deep venous thrombosis at the right femoral and popliteal veins. Foot X-Ray 07/13/24 15:34 IMPRESSION: Osteomyelitis of distal fifth metatarsal bone and base of proximal phalanx of fifth digit, with adjacent soft tissue swelling, subcutaneous emphysema Chest X-Ray 07/13/24 15:38 IMPRESSION: Pulmonary vascular prominence and redistribution suggesting mild pulmonary venous hypertension Chest CTA 07/13/24 16:51 IMPRESSION: Bilateral subsegmental lower lobe pulmonary emboli Labs Labs: Laboratory Results - last 24 hr 07/13/24 07/13/24 07/13/24 15:08 20:12 21:44 WBC RBC Hgb Hct MCV MCH MCHC RDW Plt Count MPV Immature Gran % (Auto) Neut % (Auto) Lymph % (Auto) [place] % (Auto) Eos % (Auto) Baso % (Auto) Lymph # (Auto) [place] # (Auto) Eos # (Auto) Baso # (Auto) Abs Immat Gran (auto) Absolute Neuts (auto) Absolute Nucleated RBC Nucleated RBC % ESR 22 H PT 14.9 H INR 1.1 APTT 29.9 Sodium Potassium Chloride Carbon Dioxide Anion Gap BUN Creatinine Estim Creat Clear Calc Estimated GFR Glucose POC Capillary Glucose 185 H Hemoglobin A1c Lactic Acid 2.2 H Calcium Magnesium 2.3 Total Bilirubin AST ALT Alkaline Phosphatase Total Creatine Kinase Troponin I Total Protein Albumin TSH (Reflex) 1.900 07/13/24 07/13/24 07/14/24 23:28 23:47 00:32 WBC RBC Hgb Hct MCV MCH MCHC RDW Plt Count MPV Immature Gran % (Auto) Neut % (Auto) Lymph % (Auto) [place] % (Auto) Eos % (Auto) Baso % (Auto) Lymph # (Auto) [place] # (Auto) Eos # (Auto) Baso # (Auto) Abs Immat Gran (auto) Absolute Neuts (auto) Absolute Nucleated RBC Nucleated RBC % ESR PT INR APTT 39.6 H Sodium Potassium Chloride Carbon Dioxide Anion Gap BUN Creatinine Estim Creat Clear Calc Estimated GFR Glucose POC Capillary Glucose 154 H Hemoglobin A1c 7.4 H Lactic Acid Calcium Magnesium Total Bilirubin AST ALT Alkaline Phosphatase Total Creatine Kinase 293 H Troponin I 0.018 Total Protein Albumin TSH (Reflex) 07/14/24 07/14/24 07/14/24 07:34 07:36 08:10 WBC 12.9 H RBC 4.05 L Hgb 11.6 L Hct 35.9 L MCV 88.6 MCH 28.6 MCHC 32.3 RDW 14.6 H Plt Count 405 H MPV 9.9 Immature Gran % (Auto) 4.0 H Neut % (Auto) 69.2 Lymph % (Auto) 17.7 L [place] % (Auto) 8.1 Eos % (Auto) 0.5 Baso % (Auto) 0.5 Lymph # (Auto) 2.28 [place] # (Auto) 1.1 H Eos # (Auto) 0.1 Baso # (Auto) 0.1 Abs Immat Gran (auto) 0.51 H Absolute Neuts (auto) 8.9 H Absolute Nucleated RBC 0.000 Nucleated RBC % 0.0 ESR PT INR APTT 65.6 H Sodium 133 L Potassium 3.6 Chloride 98 Carbon Dioxide 24 Anion Gap 11 BUN 14 Creatinine 0.90 Estim Creat Clear Calc 130 Estimated GFR > 60 Glucose 125 H POC Capillary Glucose 128 H Hemoglobin A1c Lactic Acid Calcium 7.5 L Magnesium 2.0 Total Bilirubin 0.9 AST 68 H ALT 47 Alkaline Phosphatase 137 H Total Creatine Kinase Troponin I Total Protein 8.0 Albumin 3.3 L TSH (Reflex) 07/14/24 07/14/24 10:59 11:57 WBC RBC Hgb Hct MCV MCH MCHC RDW Plt Count MPV Immature Gran % (Auto) Neut % (Auto) Lymph % (Auto) [place] % (Auto) Eos % (Auto) Baso % (Auto) Lymph # (Auto) [place] # (Auto) Eos # (Auto) Baso # (Auto) Abs Immat Gran (auto) Absolute Neuts (auto) Absolute Nucleated RBC Nucleated RBC % ESR PT INR APTT 47.7 H Sodium Potassium Chloride Carbon Dioxide Anion Gap BUN Creatinine Estim Creat Clear Calc Estimated GFR Glucose POC Capillary Glucose 133 H Hemoglobin A1c Lactic Acid Calcium Magnesium Total Bilirubin AST ALT Alkaline Phosphatase Total Creatine Kinase Troponin I Total Protein Albumin TSH (Reflex) Quality VTE Prophylaxis VTE prophylaxis: pharmacologic ordered (currently on a heparin drip for DVT and PE)
[2024-07-14 16:35] LABS: Glucose Point of Care 135 mg/dl (65-105)
[2024-07-14] MEDS: HEPARIN SOD/D5W 100 UNITS/ML 25,000 UNITS/250 ML BAG 25 UNITS IV CONT (18:39)
[2024-07-14 18:54] LABS: Partial Thromboplastin Time 121.7 Seconds (22.3-36.8)
--- NOTE | 2024-07-14 20:02 | PC.NURSE ---
Heparin bag was changed and rate changed all at 1907. Bag intake and bag change was accidently documented at 1839 and time was not able to be changed.
[2024-07-14 21:20] LABS: Glucose Point of Care 135 mg/dl (65-105)
[2024-07-15] VITALS (23 sets, daily range): BP systolic 106–150; BP diastolic 66–106; PULSE 79–129; RESP 16–20; TEMP 36.4–36.9; O2SAT 95–100
[2024-07-15 01:44] LABS: Partial Thromboplastin Time 71.4 Seconds (22.3-36.8)
[2024-07-15] MEDS: AMIODARONE 360 MG/D5W 200 ML 360 MG/200 ML BAG 16.67 MG IV CONT (03:40)
[2024-07-15] MEDS: metroNIDAZOLE 500 MG/ISO 100ML 500 MG/100 ML BAG 100 MG IVPB (05:06)
[2024-07-15 07:28] LABS: Basophils Absolute Auto 0.1 K/mm3 (0.0-0.1); Basophils Percent Auto 1.3 % (0.2-1.2); Eosinophils Absolute Auto 0.1 K/mm3 (0-0.3); Eosinophils Percent Auto 0.8 % (0-4.4); Hematocrit 38.3 % (42.0-52.0); Hemoglobin 11.9 g/dL (14.0-18.0); Immature Granulocyte Absolute 0.35 K/mm3 (0.00-0.031); Immature Granulocyte Percent A 4.1 % (0-0.5); Lymphocytes Absolute Auto 1.86 K/mm3 (0.9-3.2); Lymphocytes Percent Auto 21.8 % (18.3-44.2); Mean Corpuscular HGB Conc 31.1 g/dl (32-36); Mean Corpuscular Hemoglobin 28.3 pg (26-34); Monocytes Absolute Auto 0.7 K/mm3 (0.1-0.6); Monocytes Percent Auto 7.8 % (2.6-8.5); Neutrophils Absolute Auto 5.5 K/mm3 (1.3-6.7); Neutrophils Percent Auto 64.2 % (45.5-73.1); Platelet Count Result 435 k/mm3 (150-375); Red Blood Count 4.21 M/mm3 (4.6-6.20); Red Cell Distribution Width 14.6 % (11.5-14.5); White Blood Count 8.5 K/mm3 (4.5-10.0)
[2024-07-15 07:41] LABS: Alanine Aminotransferase 47 U/L (6-50); Albumin Level 3.5 g/dL (3.5-5.1); Alkaline Phosphatase 144 U/L (38-126); Anion Gap 13 mmol/L (4-12); Aspartate Amino Transferase 58 U/L (17-59); Bilirubin,Total 0.6 mg/dL (0.2-1.3); Blood Urea Nitrogen 13 mg/dL (9-20); Calcium 8.1 mg/dL (8.4-10.2); Carbon Dioxide 26 mmol/L (22-30); Chloride 97 mmol/L (98-107); Estimated CRCL calculation 130 ml/min; Estimated Glomerular Filt Rate > 60; Glucose 144 mg/dL (65-110); Potassium 3.6 mmol/L (3.4-5.0); Sodium 136 mmol/L (137-145)
--- NOTE | 2024-07-15 07:52 | PM.PNCARD ---
Progress Note: A&P Assessment and Plan (1) PAF (paroxysmal atrial fibrillation): Code(s): I48.0 - Paroxysmal atrial fibrillation Status: Acute Assessment and Plan: In atrial fib. [id number] 2. On heparin drip. On Amiodarone drip. Rate is normal. On Amiodarone drip for more than 24 hours. Stop Amiodarone drip. Start Amiodarone 400 mg BID for 1 week, then 200 mg BID. (2) DVT (deep venous thrombosis): Qualifiers: Affected thrombotic vein of extremity: femoral Chronicity: acute DVT location: lower extremity Laterality: right Qualified Code(s): I82.411 - Acute embolism and thrombosis of right femoral vein Code(s): I82.409 - Acute embolism and thrombosis of unspecified deep veins of unspecified lower extremity Status: Acute Assessment and Plan: On heparin drip. (3) Pulmonary embolism: Code(s): I26.99 - Other pulmonary embolism without acute cor pulmonale Status: Acute Assessment and Plan: On heparin drip. Echo ordered. (4) Osteomyelitis of right foot: Code(s): M86.9 - Osteomyelitis, unspecified Status: Acute Assessment and Plan: On antibiotics. Surgery taking for I and D. (5) Dyslipidemia: Code(s): E78.5 - Hyperlipidemia, unspecified Status: Acute Assessment and Plan: Changed Simvastatin to Atorvastatin, due to being on Amiodarone now. (6) Edema of both legs: Code(s): R60.0 - Localized edema Status: Acute Assessment and Plan: Change IV to Furosemide 40 mg PO daily. (7) Hypertension: Code(s): I10 - Essential (primary) hypertension Status: Acute Assessment and Plan: Stable. Subjective Date/time seen: 07/15/24 07:52 Interval history: No chest pain or sob. Exam Const: General: cooperative, healthy appearing, comfortable and obese Nutritional Appearance: obese Orientation/consciousness: oriented to person, oriented to place and oriented to time Resp: Auscultation: clear to auscultation bilaterally, no crackles, no rales, no rhonchi and no wheezes Cardio: Rate: regular rate Rhythm: abnormal rhythm Heart sounds: no murmurs Neuro: General: oriented to person, oriented to place and oriented to time Extrem: Right lower extremity: edema Left lower extremity: edema Other: Mod right leg edema and foot is wrapped. Left leg with mild edema. Objective Data Vital Signs Vital Signs: Vital Signs - 24 hr 07/14/24 08:16 07/14/24 10:51 07/14/24 11:51 Temperature 98 F 98.1 F Pulse Rate 87 106 H 93 Respiratory Rate 20 20 Blood Pressure 91/56 L 143/90 H 133/82 Pulse Oximetry 100 100 Oxygen Delivery 07/14/24 14:23 07/14/24 14:41 07/14/24 14:03 Temperature Pulse Rate 120 H 120 H 121 H Respiratory Rate Blood Pressure 128/76 Pulse Oximetry Oxygen Delivery 07/14/24 08:00 07/14/24 10:00 07/14/24 12:00 Temperature Pulse Rate 95 80 100 Respiratory Rate Blood Pressure Pulse Oximetry Oxygen Delivery 07/14/24 14:00 07/14/24 08:00 07/14/24 10:00 Temperature Pulse Rate 106 H 87 80 Respiratory Rate Blood Pressure 91/56 L 143/90 H Pulse Oximetry Oxygen Delivery 07/14/24 12:00 07/14/24 14:00 07/14/24 16:00 Temperature Pulse Rate 93 106 H 99 Respiratory Rate Blood Pressure 133/82 128/76 Pulse Oximetry Oxygen Delivery 07/14/24 16:00 07/14/24 18:18 07/14/24 12:00 Temperature 97.8 F Pulse Rate 70 102 H Respiratory Rate 16 Blood Pressure 96/56 L 108/63 Pulse Oximetry 98 Oxygen Delivery Room Air 07/14/24 16:00 07/14/24 16:00 07/14/24 18:00 Temperature Pulse Rate 70 99 Respiratory Rate Blood Pressure 96/56 L 108/63 Pulse Oximetry Oxygen Delivery Room Air 07/14/24 18:00 07/14/24 20:00 07/14/24 22:00 Temperature 98.5 F 98.4 F Pulse Rate 99 96 101 H Respiratory Rate 16 18 Blood Pressure 111/65 118/66 Pulse Oximetry 99 98 Oxygen Delivery 07/14/24 23:32 07/14/24 20:00 07/14/24 20:30 Temperature 97.5 F L Pulse Rate 99 96 96 Respiratory Rate 20 16 Blood Pressure 129/80 111/65 Pulse Oximetry 100 99 Oxygen Delivery Room Air 07/14/24 22:00 07/14/24 23:32 07/14/24 23:32 Temperature Pulse Rate 101 H 99 99 Respiratory Rate 20 Blood Pressure 118/66 129/80 Pulse Oximetry 100 Oxygen Delivery Room Air 07/14/24 20:00 07/14/24 22:00 07/15/24 00:00 Temperature Pulse Rate 137 H 101 H 82 Respiratory Rate Blood Pressure Pulse Oximetry Oxygen Delivery 07/15/24 01:58 07/15/24 02:00 07/15/24 02:00 Temperature 97.6 F Pulse Rate 94 95 94 Respiratory Rate 16 Blood Pressure 141/89 H 141/89 H Pulse Oximetry 98 Oxygen Delivery 07/15/24 04:00 07/15/24 04:00 07/15/24 03:40 Temperature 97.6 F Pulse Rate 87 91 87 Respiratory Rate 16 Blood Pressure 106/66 106/66 Pulse Oximetry 99 Oxygen Delivery 07/15/24 03:40 07/15/24 04:00 07/15/24 04:00 Temperature Pulse Rate 87 87 87 Respiratory Rate 16 Blood Pressure 106/66 106/66 Pulse Oximetry 99 Oxygen Delivery Room Air Intake/Output Intake/Output: Intake & Output 07/13/24 07/14/24 07/14/24 07/15/24 00:59 00:59 23:59 23:59 Intake Total 776.3 Output Total 1400 Balance -623.7 Meds/Results Medications: Active Medications Generic Name Dose Route Start Last Admin Trade Name Freq PRN Reason Stop Dose Admin Acetaminophen 650 mg 07/13/24 23:05 Acetaminophen 325 Mg Tablet PO Q6H PRN Mild Pain (1-3) or Fever Atorvastatin Calcium 10 mg 07/14/24 09:00 07/14/24 10:30 Atorvastatin 10 Mg Tablet PO 10 mg DAILY RASTA Administration Dextrose 12.5 gm 07/13/24 23:05 Dextrose 50% 25 Gm/50 Ml Syringe IV PUSH PRN PRN Hypoglycemia Protocol Empagliflozin 25 mg 07/14/24 09:00 07/14/24 10:30 Empagliflozin 25 Mg Tablet PO 25 mg DAILY RASTA Administration Furosemide 40 mg 07/14/24 09:00 07/14/24 10:30 Furosemide Inj 40 Mg/4 Ml Vial IV PUSH 40 mg DAILY RASTA Administration Glimepiride 1 mg 07/14/24 09:00 07/14/24 10:30 Glimepiride 1 Mg Tablet PO 1 mg QAM RASTA Administration Glucagon 1 mg 07/13/24 23:05 Glucagon For Inj 1 Mg Vial IM PRN PRN Hypoglycemia Protocol Glucose 15 gm 07/13/24 23:05 Glucose Oral Gel 15 Gm Of Glucse In 37.5 Gm Tube PO PRN PRN Hypoglycemia Protocol Heparin Sodium (Porcine) 9,000 units 07/13/24 17:07 07/14/24 12:42 Heparin Sodium 5,000 Units/Ml Vial IV PUSH 9,000 units PRN PRN Administration aPTT less than 55 seconds Heparin Sodium (Porcine) 4,500 units 07/13/24 17:07 Heparin Sodium 5,000 Units/Ml Vial IV PUSH PRN PRN aPTT 55 - 70 seconds Cefepime HCl 2 gm in 50 mls @ 100 mls/hr 07/14/24 00:00 07/14/24 22:05 Maxipime 2 Gm/Ns 50 Ml IVPB Infused Q12HR RASTA Infusion Metronidazole 500 mg in 100 mls @ 100 mls/hr 07/13/24 23:00 07/15/24 06:06 Flagyl 500 Mg/Iso Soln 100 Ml IVPB Infused Q8HR RASTA Infusion Heparin Sodium/Dextrose 25,000 units in 250 mls @ 23 mls/hr 07/13/24 17:10 07/15/24 01:08 Heparin Sodium/D5w 100 Units/Ml IV CONT 2,300 units/hr .[id number] RASTA 23 mls/hr Titration Protocol 2,300 UNITS/HR Amiodarone HCl/Dextrose 360 mg in 200 mls @ 16.667 mls/hr 07/14/24 00:58 07/15/24 04:00 Nexterone 360 Mg/D5w 200 Ml IV CONT 0.5 mg/min .Q12H RASTA 16.67 mls/hr Infusion 0.5 MG/MIN Vancomycin HCl 1,500 mg in 500 mls @ 250 mls/hr 07/14/24 08:00 07/14/24 23:28 Vancomycin 1,500 Mg/Ns 500 Ml IVPB Infused Q12H RASTA Infusion Dextrose 1,000 mls @ 100 mls/hr 07/13/24 23:05 Dextrose 5% 1,000 Ml IVPB PRN PRN Hypoglycemia Protocol Insulin Aspart 3 - 6 units 07/14/24 08:00 07/14/24 18:14 Insulin Aspart (*Bkc) 100 Units/Ml SUB-Q Not Given TIDWM [facility] Protocol Insulin Aspart 1 - 3 units 07/13/24 23:10 07/14/24 21:27 Insulin Aspart (*Bkc) 100 Units/Ml SUB-Q Not Given HS [facility] Protocol Perflutren Lipid Microsphere 0 ml 07/13/24 23:05 Perflutren Lipid Microspheres 1.5 Ml Vial Diluted To 10 Ml Total Volume IV PUSH 07/16/24 23:05 ONCE PRN adequate visualization Protocol Radiology Results: ITS Impressions Venous Doppler Study 07/13/24 15:06 IMPRESSION: 1. Deep venous thrombosis at the right femoral and popliteal veins. Foot X-Ray 07/13/24 15:34 IMPRESSION: Osteomyelitis of distal fifth metatarsal bone and base of proximal phalanx of fifth digit, with adjacent soft tissue swelling, subcutaneous emphysema Chest X-Ray 07/13/24 15:38 IMPRESSION: Pulmonary vascular prominence and redistribution suggesting mild pulmonary venous hypertension Chest CTA 07/13/24 16:51 IMPRESSION: Bilateral subsegmental lower lobe pulmonary emboli Abdomen Ultrasound 07/14/24 15:36 IMPRESSION: Limited study; no apparent abnormality of the liver, pancreas or gallbladder Labs Labs: Laboratory Results - last 24 hr 07/14/24 07/14/24 07/14/24 07:34 08:10 10:59 WBC RBC Hgb Hct MCV MCH MCHC RDW Plt Count MPV Immature Gran % (Auto) Neut % (Auto) Lymph % (Auto) [place] % (Auto) Eos % (Auto) Baso % (Auto) Lymph # (Auto) [place] # (Auto) Eos # (Auto) Baso # (Auto) Abs Immat Gran (auto) Absolute Neuts (auto) Absolute Nucleated RBC Nucleated RBC % APTT 65.6 H Sodium 133 L Potassium 3.6 Chloride 98 Carbon Dioxide 24 Anion Gap 11 BUN 14 Creatinine 0.90 Estim Creat Clear Calc 130 Estimated GFR > 60 Glucose 125 H POC Capillary Glucose 128 H 133 H Calcium 7.5 L Magnesium 2.0 Total Bilirubin 0.9 AST 68 H ALT 47 Alkaline Phosphatase 137 H Total Protein 8.0 Albumin 3.3 L 07/14/24 07/14/24 07/14/24 11:57 16:30 18:26 WBC RBC Hgb Hct MCV MCH MCHC RDW Plt Count MPV Immature Gran % (Auto) Neut % (Auto) Lymph % (Auto) [place] % (Auto) Eos % (Auto) Baso % (Auto) Lymph # (Auto) [place] # (Auto) Eos # (Auto) Baso # (Auto) Abs Immat Gran (auto) Absolute Neuts (auto) Absolute Nucleated RBC Nucleated RBC % APTT 47.7 H 121.7 H Sodium Potassium Chloride Carbon Dioxide Anion Gap BUN Creatinine Estim Creat Clear Calc Estimated GFR Glucose POC Capillary Glucose 135 H Calcium Magnesium Total Bilirubin AST ALT Alkaline Phosphatase Total Protein Albumin 07/14/24 07/15/24 07/15/24 21:11 01:08 07:16 WBC 8.5 RBC 4.21 L Hgb 11.9 L Hct 38.3 L MCV 91.0 MCH 28.3 MCHC 31.1 L RDW 14.6 H Plt Count 435 H MPV 10.0 Immature Gran % (Auto) 4.1 H Neut % (Auto) 64.2 Lymph % (Auto) 21.8 [place] % (Auto) 7.8 Eos % (Auto) 0.8 Baso % (Auto) 1.3 H Lymph # (Auto) 1.86 [place] # (Auto) 0.7 H Eos # (Auto) 0.1 Baso # (Auto) 0.1 Abs Immat Gran (auto) 0.35 H Absolute Neuts (auto) 5.5 Absolute Nucleated RBC 0.000 Nucleated RBC % 0.0 APTT 71.4 H Sodium 136 L Potassium 3.6 Chloride 97 L Carbon Dioxide 26 Anion Gap 13 H BUN 13 Creatinine 0.90 Estim Creat Clear Calc 130 Estimated GFR > 60 Glucose 144 H POC Capillary Glucose 135 H Calcium 8.1 L Magnesium Total Bilirubin 0.6 AST 58 ALT 47 Alkaline Phosphatase 144 H Total Protein 8.0 Albumin 3.5
[2024-07-15 08:15] LABS: Partial Thromboplastin Time 31.6 Seconds (22.3-36.8)
[2024-07-15 08:39] LABS: Glucose Point of Care 145 mg/dl (65-105)
[2024-07-15 08:59] LABS: Vancomycin Trough 15.6 ug/mL (10.0-20.0)
[2024-07-15] MEDS: CEFEPIME 2 GM/NS 50 ML 2 GM/50 ML BAG IVPB (09:57)
[2024-07-15] MEDS: AMIODARONE HCL 200 MG TABLET 400 MG PO ×2 (09:58→18:26)
[2024-07-15] MEDS: ATORVASTATIN 10 MG TABLET PO (09:58)
[2024-07-15] MEDS: EMPAGLIFLOZIN 25 MG TABLET PO (09:58)
[2024-07-15] MEDS: FUROSEMIDE 40 MG TABLET PO (09:58)
[2024-07-15] MEDS: GLIMEPIRIDE 1 MG TABLET PO (09:58)
[2024-07-15] MEDS: METOPROLOL TARTRATE 25 MG TABLET PO ×2 (09:58→20:34)
[2024-07-15] MEDS: VANCOMYCIN 1,500 MG/NS 500 ML 1,500 MG/500 ML BAG 250 MG IVPB (09:59)
[2024-07-15 12:14] LABS: Glucose Point of Care 117 mg/dl (65-105)
--- NOTE | 2024-07-15 13:10 | P.PNIM_ITS ---
Progress Note: A&P Assessment and Plan (1) Sepsis: Code(s): A41.9 - Sepsis, unspecified organism Status: Acute (2) Osteomyelitis of right foot: Code(s): M86.9 - Osteomyelitis, unspecified Status: Acute (3) Diabetic ulcer of right foot: Code(s): E11.621 - Type 2 diabetes mellitus with foot ulcer; L97.519 - Non-pressure chronic ulcer of other part of right foot with unspecified severity Status: Acute (4) Diabetic infection of right foot: Code(s): E11.628 - Type 2 diabetes mellitus with other skin complications; L08.9 - Local infection of the skin and subcutaneous tissue, unspecified Status: Acute (5) Deep vein thrombosis of right lower extremity: Code(s): I82.401 - Acute embolism and thrombosis of unspecified deep veins of right lower extremity Status: Acute (6) Bilateral pulmonary embolism: Code(s): I26.99 - Other pulmonary embolism without acute cor pulmonale Status: Acute (7) Atrial fibrillation with rapid ventricular response: Code(s): I48.91 - Unspecified atrial fibrillation Status: Acute (8) Elevated LFTs: Code(s): R79.89 - Other specified abnormal findings of blood chemistry Status: Acute (9) Hypertension: Code(s): I10 - Essential (primary) hypertension Status: Acute (10) Type 2 diabetes mellitus: Code(s): E11.9 - Type 2 diabetes mellitus without complications Status: Acute (11) Obstructive sleep apnea: Code(s): G47.33 - Obstructive sleep apnea (adult) (pediatric) Status: Acute Plan Diabetic right foot ulcer with osteomyelitis Osteomyelitis of distal fifth metatarsal bone and base of proximal phalanx of fifth digit, with adjacent soft tissue swelling, subcutaneous emphysema Blood culture positive GBS narrowed abx to Rocephin per blood culture (07/15/2024) I am D today Gen surgery on board Group B streptococcemia Blood culture positive for GBS Antibiotics whittled down on Rocephin pending tissue culture PE/DVT CT chest and Venous doppler showed DVT RLE Continue Heparin infusion ECHO pending Afib RVR, new onset [id number] 2 s/p Amiodarone infusion, now on Amiodarone 400mg bid, transition to 200mg bid after 7 days ECHO pending on heparin infusion DM2 SSi with accucheks HTN titrate home meds with clinical course RADHA on CPAP DVT prophylaxis on heparin infusion Subjective Date/time seen: 07/15/24 13:10 Interval history: Comfortable at bedside For I and D today Review of Systems Review of Systems: 12 systems were reviewed and are negativ e except for as per HPI. Exam Narrative: General: Moderately ill-appearing male in the semi-Bedoya position in bed. Weight: 172.6 kg. BMI: 51.6. HEENT: Wearing corrective lenses. PERRL, EOMI. Sclera anicteric. Tacky mucous membranes. Oropharynx is crowded. Neck: Supple. Exam limited due to neck circumference. No obvious JVD or lym phadenopathy. Respiratory: Respirations are nonlabored and he is speaking in full sentences. Lungs are clear to auscultation. Cardiovascular: Irregularly irregular rate and rhythm. Gastrointestinal: Abdomen is soft, morbidly obese, nontender, and nondistended with positive bowel sounds. Skin: Warm and dry. There is an ulcerative lesion on the lateral plantar aspect of the right foot draining malodorous, purulent fluid with surrounding warmth and erythema. No obvious crepitus noted. Extremities: No cyanosis or clubbing. Legs are large. There is pitting edema of the right lower extremity. No obvious palpable knots or cords. Neurological: Alert. Cranial nerves 2-12 are grossly intact. No gross focal deficits to casual conversation. Psychiatric: Pleasant and cooperative with normal mood and affect. Judgment an d insight intact. Objective Data Vital Signs Vital Signs: Vital Signs - 24 hr 07/14/24 14:23 07/14/24 14:41 07/14/24 14:03 Temperature Pulse Rate 120 H 120 H 121 H Respiratory Rate Blood Pressure 128/76 Pulse Oximetry Oxygen Delivery 07/14/24 14:00 07/14/24 14:00 07/14/24 16:00 Temperature Pulse Rate 106 H 106 H 99 Respiratory Rate Blood Pressure 128/76 Pulse Oximetry Oxygen Delivery 07/14/24 16:00 07/14/24 18:18 07/14/24 16:00 Temperature 97.8 F Pulse Rate 70 102 H Respiratory Rate 16 Blood Pressure 96/56 L 108/63 Pulse Oximetry 98 Oxygen Delivery Room Air 07/14/24 16:00 07/14/24 18:00 07/14/24 18:00 Temperature Pulse Rate 70 99 99 Respiratory Rate Blood Pressure 96/56 L 108/63 Pulse Oximetry Oxygen Delivery 07/14/24 20:00 07/14/24 22:00 07/14/24 23:32 Temperature 98.5 F 98.4 F 97.5 F L Pulse Rate 96 101 H 99 Respiratory Rate 16 18 20 Blood Pressure 111/65 118/66 129/80 Pulse Oximetry 99 98 100 Oxygen Delivery 07/14/24 20:00 07/14/24 20:30 07/14/24 22:00 Temperature Pulse Rate 96 96 101 H Respiratory Rate 16 Blood Pressure 111/65 118/66 Pulse Oximetry 99 Oxygen Delivery Room Air 07/14/24 23:32 07/14/24 23:32 07/14/24 20:00 Temperature Pulse Rate 99 99 137 H Respiratory Rate 20 Blood Pressure 129/80 Pulse Oximetry 100 Oxygen Delivery Room Air 07/14/24 22:00 07/15/24 00:00 07/15/24 01:58 Temperature Pulse Rate 101 H 82 94 Respiratory Rate Blood Pressure Pulse Oximetry Oxygen Delivery 07/15/24 02:00 07/15/24 02:00 07/15/24 04:00 Temperature 97.6 F 97.6 F Pulse Rate 95 94 87 Respiratory Rate 16 16 Blood Pressure 141/89 H 141/89 H 106/66 Pulse Oximetry 98 99 Oxygen Delivery 07/15/24 04:00 07/15/24 03:40 07/15/24 03:40 Temperature Pulse Rate 91 87 87 Respiratory Rate Blood Pressure 106/66 106/66 Pulse Oximetry Oxygen Delivery 07/15/24 04:00 07/15/24 04:00 07/15/24 06:00 Temperature Pulse Rate 87 87 97 Respiratory Rate 16 Blood Pressure 106/66 138/102 H Pulse Oximetry 99 Oxygen Delivery Room Air 07/15/24 06:00 07/15/24 08:00 07/15/24 09:58 Temperature 98.5 F Pulse Rate 97 95 129 H Respiratory Rate 18 Blood Pressure 150/89 H Pulse Oximetry 95 Oxygen Delivery 07/15/24 09:58 07/15/24 12:00 Temperature 97.7 F Pulse Rate 129 H 81 Respiratory Rate 20 Blood Pressure 142/106 H Pulse Oximetry 99 Oxygen Delivery Intake/Output Intake/Output: Intake & Output 11/02/24 07/14/24 07/14/24 07/15/24 00:59 00:59 23:59 23:59 Intake Total 1109.6 Output Total 1600 Balance -490.4 Meds/Results Medications: Active Medications Generic Name Dose Route Start Last Admin Trade Name Freq PRN Reason Stop Dose Admin Acetaminophen 650 mg 07/13/24 23:05 Acetaminophen 325 Mg Tablet PO Q6H PRN Mild Pain (1-3) or Fever Amiodarone HCl 400 mg 07/15/24 09:00 07/15/24 09:58 Amiodarone Hcl 200 Mg Tablet PO 400 mg BID RASTA Administration Atorvastatin Calcium 10 mg 07/14/24 09:00 07/15/24 09:58 Atorvastatin 10 Mg Tablet PO 10 mg DAILY RASTA Administration Dextrose 12.5 gm 07/13/24 23:05 Dextrose 50% 25 Gm/50 Ml Syringe IV PUSH PRN PRN Hypoglycemia Protocol Empagliflozin 25 mg 07/14/24 09:00 07/15/24 09:58 Empagliflozin 25 Mg Tablet PO 25 mg DAILY RASTA Administration Furosemide 40 mg 07/15/24 09:00 07/15/24 09:58 Furosemide 40 Mg Tablet PO 40 mg DAILY RASTA Administration Glimepiride 1 mg 07/14/24 09:00 07/15/24 09:58 Glimepiride 1 Mg Tablet PO 1 mg QAM RASTA Administration Glucagon 1 mg 07/13/24 23:05 Glucagon For Inj 1 Mg Vial IM PRN PRN Hypoglycemia Protocol Glucose 15 gm 07/13/24 23:05 Glucose Oral Gel 15 Gm Of Glucse In 37.5 Gm Tube PO PRN PRN Hypoglycemia Protocol Heparin Sodium (Porcine) 9,000 units 07/13/24 17:07 07/14/24 12:42 Heparin Sodium 5,000 Units/Ml Vial IV PUSH 9,000 units PRN PRN Administration aPTT less than 55 seconds Heparin Sodium (Porcine) 4,500 units 07/13/24 17:07 Heparin Sodium 5,000 Units/Ml Vial IV PUSH PRN PRN aPTT 55 - 70 seconds Cefepime HCl 2 gm in 50 mls @ 100 mls/hr 07/14/24 00:00 07/15/24 09:57 Maxipime 2 Gm/Ns 50 Ml IVPB 100 mls/hr Q12HR RASTA Administration Metronidazole 500 mg in 100 mls @ 100 mls/hr 07/13/24 23:00 07/15/24 06:06 Flagyl 500 Mg/Iso Soln 100 Ml IVPB Infused Q8HR RASTA Infusion Heparin Sodium/Dextrose 25,000 units in 250 mls @ 23 mls/hr 07/13/24 17:10 07/15/24 08:00 Heparin Sodium/D5w 100 Units/Ml IV CONT Infused .[id number] RASTA Titration Protocol 2,300 UNITS/HR Dextrose 1,000 mls @ 100 mls/hr 07/13/24 23:05 Dextrose 5% 1,000 Ml IVPB PRN PRN Hypoglycemia Protocol Vancomycin HCl 1,500 mg in 500 mls @ 250 mls/hr 07/15/24 09:00 07/15/24 09:59 Vancomycin 1,500 Mg/Ns 500 Ml IVPB 250 mls/hr Q12H RASTA Administration Insulin Aspart 3 - 6 units 07/14/24 08:00 07/15/24 13:02 Insulin Aspart (*Bkc) 100 Units/Ml SUB-Q Not Given TIDWM RASTA Protocol Insulin Aspart 1 - 3 units 07/13/24 23:10 07/14/24 21:27 Insulin Aspart (*Bkc) 100 Units/Ml SUB-Q Not Given HS RASTA Protocol Metoprolol Tartrate 25 mg 07/15/24 09:00 07/15/24 09:58 Metoprolol Tartrate 25 Mg Tablet PO 25 mg Q12HR RASTA Administration Perflutren Lipid Microsphere 0 ml 07/13/24 23:05 Perflutren Lipid Microspheres 1.5 Ml Vial Diluted To 10 Ml Total Volume IV PUSH 07/16/24 23:05 ONCE PRN adequate visualization Protocol Radiology Results: ITS Impressions Venous Doppler Study 07/13/24 15:06 IMPRESSION: 1. Deep venous thrombosis at the right femoral and popliteal veins. Foot X-Ray 07/13/24 15:34 IMPRESSION: Osteomyelitis of distal fifth metatarsal bone and base of proximal phalanx of fifth digit, with adjacent soft tissue swelling, subcutaneous emphysema Chest X-Ray 07/13/24 15:38 IMPRESSION: Pulmonary vascular prominence and redistribution suggesting mild pulmonary venous hypertension Chest CTA 07/13/24 16:51 IMPRESSION: Bilateral subsegmental lower lobe pulmonary emboli Abdomen Ultrasound 07/14/24 15:36 IMPRESSION: Limited study; no apparent abnormality of the liver, pancreas or gallbladder Labs Labs: Laboratory Results - last 24 hr 07/14/24 07/14/24 07/14/24 16:30 18:26 21:11 WBC RBC Hgb Hct MCV MCH MCHC RDW Plt Count MPV Immature Gran % (Auto) Neut % (Auto) Lymph % (Auto) [place] % (Auto) Eos % (Auto) Baso % (Auto) Lymph # (Auto) [place] # (Auto) Eos # (Auto) Baso # (Auto) Abs Immat Gran (auto) Absolute Neuts (auto) Absolute Nucleated RBC Nucleated RBC % APTT 121.7 H Sodium Potassium Chloride Carbon Dioxide Anion Gap BUN Creatinine Estim Creat Clear Calc Estimated GFR Glucose POC Capillary Glucose 135 H 135 H Calcium Total Bilirubin AST ALT Alkaline Phosphatase Total Protein Albumin Vancomycin Trough 07/15/24 07/15/24 07/15/24 01:08 07:16 07:35 WBC 8.5 RBC 4.21 L Hgb 11.9 L Hct 38.3 L MCV 91.0 MCH 28.3 MCHC 31.1 L RDW 14.6 H Plt Count 435 H MPV 10.0 Immature Gran % (Auto) 4.1 H Neut % (Auto) 64.2 Lymph % (Auto) 21.8 [place] % (Auto) 7.8 Eos % (Auto) 0.8 Baso % (Auto) 1.3 H Lymph # (Auto) 1.86 [place] # (Auto) 0.7 H Eos # (Auto) 0.1 Baso # (Auto) 0.1 Abs Immat Gran (auto) 0.35 H Absolute Neuts (auto) 5.5 Absolute Nucleated RBC 0.000 Nucleated RBC % 0.0 APTT 71.4 H 31.6 Sodium 136 L Potassium 3.6 Chloride 97 L Carbon Dioxide 26 Anion Gap 13 H BUN 13 Creatinine 0.90 Estim Creat Clear Calc 130 Estimated GFR > 60 Glucose 144 H POC Capillary Glucose 145 H Calcium 8.1 L Total Bilirubin 0.6 AST 58 ALT 47 Alkaline Phosphatase 144 H Total Protein 8.0 Albumin 3.5 Vancomycin Trough 15.6 07/15/24 12:01 WBC RBC Hgb Hct MCV MCH MCHC RDW Plt Count MPV Immature Gran % (Auto) Neut % (Auto) Lymph % (Auto) [place] % (Auto) Eos % (Auto) Baso % (Auto) Lymph # (Auto) [place] # (Auto) Eos # (Auto) Baso # (Auto) Abs Immat Gran (auto) Absolute Neuts (auto) Absolute Nucleated RBC Nucleated RBC % APTT Sodium Potassium Chloride Carbon Dioxide Anion Gap BUN Creatinine Estim Creat Clear Calc Estimated GFR Glucose POC Capillary Glucose 117 H Calcium Total Bilirubin AST ALT Alkaline Phosphatase Total Protein Albumin Vancomycin Trough Quality VTE Prophylaxis VTE prophylaxis: pharmacologic ordered (currently on a heparin drip for DVT and PE)
--- NOTE | 2024-07-15 13:23 | WPDHPUPDATE1 ---
History and Physical Update Update Date/Time: 07/15/24 13:23 History and Physical has been reviewed, including an updated exam of the patient. There are NO changes in the patient's condition. Risks, benefits, and alternatives have been discussed and questions answered. Patient agrees to proceed with procedure.
--- NOTE | 2024-07-15 13:55 | PC.NURSE ---
Pt left floor for debridement procedure.
[2024-07-15] MEDS: LACTATED RINGERS 1,000 ML 30 ML IV CONT ×2 (14:30→16:40)
--- NOTE | 2024-07-15 14:51 | P.PNAN_ITS ---
Anes - Initial Pre Proc Eval Procedure: Operation Date: 07/15/24 14:45 Proposed Procedures p Incision,Drainage And Debridement Right Foot Abscess Wound - Javier Montgomery MD Date/Time: 07/15/24 14:51 Surgeon: Charlie Hamilton MD Pre Op Diagnosis: PE, DVT, osteomyelistis, AFib with RVR Patient Data Age: 59 Gender: M Height: 1.83 m Weight: 176.2 kg Last Vital Signs Temp 36.7 C 07/15/24 14:00 Pulse 90 07/15/24 14:00 Resp 16 07/15/24 14:00 BP 148/89 H 07/15/24 14:00 Pulse Ox 100 07/15/24 14:00 O2 Del Method Room Air 07/15/24 14:00 Allergies Allergy/AdvReac Type Severity Reaction Status Date / Time No Known Allergies Allergy Verified 07/15/24 14:36 Home Medications Medication Instructions Recorded Confirmed Type aspirin 325 mg tablet 325 mg PO DAILY 09/20/22 07/15/24 History glimepiride 1 mg tablet 1 mg PO QAM #30 tabs 09/27/23 07/15/24 Rx metformin 1,000 mg tablet 1,000 mg PO BID 30 days #180 tabs 09/27/23 07/15/24 Rx empagliflozin 25 mg tablet 25 mg PO DAILY #90 tabs 03/25/24 07/15/24 Rx (Jardiance) simvastatin 10 mg tablet 10 mg PO DAILY #90 tabs 06/11/24 07/15/24 Rx furosemide 40 mg tablet 40 mg PO DAILY 07/13/24 07/15/24 History lisinopril 40 mg tablet 40 mg PO DAILY 07/13/24 07/15/24 History Laboratory Tests 07/14/24 07/14/24 07/14/24 16:30 18:26 21:11 WBC RBC Hgb Hct MCV MCH MCHC RDW Plt Count MPV Immature Gran % (Auto) Neut % (Auto) Lymph % (Auto) [place] % (Auto) Eos % (Auto) Baso % (Auto) Lymph # (Auto) [place] # (Auto) Eos # (Auto) Baso # (Auto) Abs Immat Gran (auto) Absolute Neuts (auto) Absolute Nucleated RBC Nucleated RBC % APTT 121.7 H Seconds (22.3-36.8) Sodium Potassium Chloride Carbon Dioxide Anion Gap BUN Creatinine Estim Creat Clear Calc Estimated GFR Glucose POC Capillary Glucose 135 H mg/dl 135 H mg/dl (65-105) (65-105) Calcium Total Bilirubin AST ALT Alkaline Phosphatase Total Protein Albumin Vancomycin Trough 07/15/24 07/15/24 07/15/24 01:08 07:16 07:35 WBC 8.5 K/mm3 (4.5-10.0) RBC 4.21 L M/mm3 (4.6-6.20) Hgb 11.9 L g/dL (14.0-18.0) Hct 38.3 L % (42.0-52.0) MCV 91.0 fl (80-100) MCH 28.3 pg (26-34) MCHC 31.1 L g/dl (32-36) RDW 14.6 H % (11.5-14.5) Plt Count 435 H k/mm3 (150-375) MPV 10.0 fl (7.4-10.4) Immature Gran % (Auto) 4.1 H % (0-0.5) Neut % (Auto) 64.2 % (45.5-73.1) Lymph % (Auto) 21.8 % (18.3-44.2) [place] % (Auto) 7.8 % (2.6-8.5) Eos % (Auto) 0.8 % (0-4.4) Baso % (Auto) 1.3 H % (0.2-1.2) Lymph # (Auto) 1.86 K/mm3 (0.9-3.2) [place] # (Auto) 0.7 H K/mm3 (0.1-0.6) Eos # (Auto) 0.1 K/mm3 (0-0.3) Baso # (Auto) 0.1 K/mm3 (0.0-0.1) Abs Immat Gran (auto) 0.35 H K/mm3 (0.00-0.031) Absolute Neuts (auto) 5.5 K/mm3 (1.3-6.7) Absolute Nucleated RBC 0.000 K/mm3 (0.0-0.012) Nucleated RBC % 0.0 % (0.0-0.2) APTT 71.4 H Seconds 31.6 Seconds (22.3-36.8) (22.3-36.8) Sodium 136 L mmol/L (137-145) Potassium 3.6 mmol/L (3.4-5.0) Chloride 97 L mmol/L (98-107) Carbon Dioxide 26 mmol/L (22-30) Anion Gap 13 H mmol/L (4-12) BUN 13 mg/dL (9-20) Creatinine 0.90 mg/dL (0.7-1.3) Estim Creat Clear Calc 130 ml/min Estimated GFR > 60 (59 - ) Glucose 144 H mg/dL (65-110) POC Capillary Glucose 145 H mg/dl (65-105) Calcium 8.1 L mg/dL (8.4-10.2) Total Bilirubin 0.6 mg/dL (0.2-1.3) AST 58 U/L (17-59) ALT 47 U/L (6-50) Alkaline Phosphatase 144 H U/L (38-126) Total Protein 8.0 g/dL (6.3-8.2) Albumin 3.5 g/dL (3.5-5.1) Vancomycin Trough 15.6 ug/mL (10.0-20.0) 07/15/24 12:01 WBC RBC Hgb Hct MCV MCH MCHC RDW Plt Count MPV Immature Gran % (Auto) Neut % (Auto) Lymph % (Auto) [place] % (Auto) Eos % (Auto) Baso % (Auto) Lymph # (Auto) [place] # (Auto) Eos # (Auto) Baso # (Auto) Abs Immat Gran (auto) Absolute Neuts (auto) Absolute Nucleated RBC Nucleated RBC % APTT Sodium Potassium Chloride Carbon Dioxide Anion Gap BUN Creatinine Estim Creat Clear Calc Estimated GFR Glucose POC Capillary Glucose 117 H mg/dl (65-105) Calcium Total Bilirubin AST ALT Alkaline Phosphatase Total Protein Albumin Vancomycin Trough Patient hx anesthesia problems: none Family hx anesthesia problems: none Results Review: All pre-operative results and documents have been reviewed as part of the pre-operative evaluation. [facility] Past Medical History Medical History Coronary artery disease reported obstructing coronary disease negative Lexiscan Myoview 04/29/2024 Dyslipidemia Morbid obesity Myocardial infarction (2011) hospitalized [facility]-no intervention Obstructive sleep apnea intolerant to CPAP Type 2 diabetes mellitus Surgical History Surgical History No history of previous surgery Family History Family History Sibling Diabetes mellitus History of blood clots Chronic obstructive pulmonary disease Social History Social History Social History: Surrogate medical decision maker: Kelly Ramirez, mother. Code status: Full code. Smoking packs per day: 3 Smoking cigarettes per day: 60.0 Years smoked: 25 Smoking pack-years: 75.00 Smoking status: Former smoker Tobacco type: cigarettes Second hand tobacco smoke exposure: No Alcohol intake: never Substance use: never Substance use type: does not use Do You Feel Safe in your Home?: Yes Lack of Transportation: No Lack of Food: Never True Current Housing: I Have Housing Concerned About Future Housing: No Difficulty Paying Gas/Electric Bills: No Difficulty Paying for Meds: No Currently Unemployed: No Education: High School Diploma/GED Difficulty w/ Childcare or Family Care: No Living arrangements: with family Additional living arrangements comments: The patient lives with his mother and their two [place]ies in [place]. 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 Spiritual care concerns: Yes ([place]) Agree to blood products: Yes Anes - Eval Final PreProcedure Day of Procedure 07/15/24 14:51 Patient weight: super morbidly obese Heart: regular rate and rhythm Lungs: clear to auscultation Airway: Mallampati scale class III Neurological: alert and oriented Last oral intake: >/= 8 hours ASA classification: IV Emergent: no Anesthetic plan: proceed Anesthesia type and monitoring: general LMA and standard monitoring Results Review: All pre-operative results and documents have been reviewed as part of the pre- operative evaluation. Informed Consent: The patient's anesthetic plan and its attendant risks and benefits were discussed with the patient/family/POA. Questions were solicited and answers provided to the satisfaction of the patient/family/POA.
[2024-07-15] MEDS: LIDO 1%/EPINEPHRINE 1:100,000 50 ML VIAL INFILTRATE (15:43)
[2024-07-15] MEDS: BUPivacaine HCL 0.5% 10 ML AMP 4 ML INFILTRATE (15:43)
[2024-07-15 16:48] LABS: Glucose Point of Care 115 mg/dl (65-105)
--- NOTE | 2024-07-15 16:49 | W.PM.PROC2 ---
Procedure Note - Detailed Date of Procedure 07/15/24 Pre-op Diagnosis PE, DVT, AFib with RVR, diabetic right foot wound with abscess and osteomyelitis Post-op Diagnosis Same Procedure Performed Incision and drainage of right foot diabetic wound abscess with excisional debridement utilizing sharp scalpel and scissors of skin, subcutaneous tissue, and bone. Surgeon Javier Montgomery MD Anesthesia General Indications Patient is a 59-year-old white male who was admitted to the hospital with right lower extremity DVT, pulmonary embolus, atrial fibrillation with rapid ventricular response, ool-[id number] diabetes, sleep apnea, and morbid obesity. He was found to have a right diabetic foot ulcer with drainage of pus. CT scan showed destruction of the shaft of the right 5th metatarsal consistent with osteomyelitis. He presents now for incision and drainage of the abscess with debridement of necrotic tissue and bone. Findings Patient had a draining sinus tract which led to an abscess in the right lateral forefoot. This is over the distal end of the right 5th metatarsal. There was destruction of the shaft of the metatarsal so such that the was discontinuous due to the destruction. The abscess tracked towards the dorsal aspect of the right forefoot. This area was completely opened up and irrigated with with saline solution. Culture stick of the pus was taken and sent to microbiology for aerobic, anaerobic, and Gram stain. Portions of the soft infected bone was sent to microbiology for tissue culture. The nonviable skin and subcutaneous tissue in the area was sharply debrided in excisional fashion with scissors and scalpel. Description of Procedure After informed consent was obtained patient brought to the operating room was placed supine position and general endotracheal anesthesia was administered. The right right lower extremity from the distal tibia region all the way down to the toes was then prepped and draped in the usual sterile fashion circumferentially. The patient had a open draining ulcer on the lateral aspect of the right forefoot proximal to the 5th metatarsophalangeal joint. There is about a 2cm bridge the opening in the lateral portion of the right forefoot. I probed this tract and found that it tracked actually more towards the dorsal aspect of the right forefoot for a couple more cm. I then utilized a scalpel to open up the skin bridge incomplete exposed abscess cavity. Within the abscess cavity I found the end of the metatarsal which had been destroyed with infection and osteomyelitis and was not continuous with the metatarsophalangeal joint. I then obtained a swab culture of the abscess cavity and sent this to microbiology for Gram stain, aerobic, and anaerobic cultures. Utilizing a rongeur I took pieces of the end of the metatarsal and sent this to microbiology for tissue culture of the bone. After irrigating out the incision sterile saline solution and moving all the pus I then sharply debrided away some of the necrotic skin edges and the subcutaneous tissues with scalpel and scissors an excisional fashion. This tissue was discarded. I then achieved hemostasis in the wound utilized electrocautery. There was actually good bleeding from the wound edges. The resulting opening was approximately 4cm cm in length by 2 cm in width by 2cm in depth. After achieving hemostasis the wound electrocautery I then packed the wound tightly with quarter-inch iodoform gauze. The wound was then cleaned and then dry gauze was placed between each of the toes in the webbing. 4x4 gauze ABD pad and Kerlix gauze was then used to dress the right foot. A 4in [place] wrap was also placed. The patient tolerated the procedure well no complications. All sponges, needles, and instrument counts were correct at the end procedure. EBL was _25__cc. The patient was awakened and taken to recovery in stable and satisfactory condition. Implants None Estimated Blood Loss 25 Urine Output 200 Drains No Packing Yes (Quarter-inch iodoform gauze right foot wound) Pathology Other (Swab of abscess cavity to microbiology for aerobic, anaerobic, and Gram stain. Portions of metatarsal bone sent to pathology for tissue culture) Complications No immediate complications Condition Stable Disposition PACU [facility] Billing Surgery - Charge Forward: Surgery Billing
--- NOTE | 2024-07-15 17:38 | SUR.PHASEI ---
Patient meets criteria to return to IMU. However, RN doesn't have transfer orders back to floor and Dr. Montgomery is operating.
--- NOTE | 2024-07-15 18:21 | PC.NURSE ---
Pt is back from surgery.
[2024-07-15 19:45] LABS: Glucose Point of Care 188 mg/dl (65-105)
[2024-07-15] MEDS: HEPARIN SOD/D5W 100 UNITS/ML 25,000 UNITS/250 ML BAG 18 UNITS IV CONT (20:31)
[2024-07-15] MEDS: cefTRIAXone 2 GM/NS 100 ML 2 GM/100 ML BAG IVPB (20:34)
--- NOTE | 2024-07-15 20:52 | PC.NURSE ---
Pt restarted on Heparin at 1800 units per Juana Rodríguez APRN. RN contacted by Steve in pharmacy to decrease to 1500 units. Juana Rodríguez APRN made aware of pharmacy recommendation and RN titrated Heparin to 1500 units per Juana Rodríguez APRN.
[2024-07-16] VITALS (17 sets, daily range): BP systolic 103–141; BP diastolic 63–91; PULSE 65–99; RESP 16–20; TEMP 36.4–36.8; O2SAT 95–100
[2024-07-16 03:12] LABS: Basophils Percent Auto 0.3 % (0.2-1.2); Hematocrit 36.7 % (42.0-52.0); Hemoglobin 11.7 g/dL (14.0-18.0); Immature Granulocyte Absolute 0.21 K/mm3 (0.00-0.031); Immature Granulocyte Percent A 2.2 % (0-0.5); Lymphocytes Absolute Auto 1.22 K/mm3 (0.9-3.2); Lymphocytes Percent Auto 12.9 % (18.3-44.2); Mean Corpuscular HGB Conc 31.9 g/dl (32-36); Mean Corpuscular Hemoglobin 28.7 pg (26-34); Mean Platelet Volume 9.8 fl (7.4-10.4); Monocytes Absolute Auto 0.5 K/mm3 (0.1-0.6); Neutrophils Absolute Auto 7.5 K/mm3 (1.3-6.7); Neutrophils Percent Auto 79.6 % (45.5-73.1); Platelet Count Result 417 k/mm3 (150-375); Red Blood Count 4.08 M/mm3 (4.6-6.20); Red Cell Distribution Width 14.7 % (11.5-14.5); White Blood Count 9.5 K/mm3 (4.5-10.0)
[2024-07-16 03:23] LABS: Alanine Aminotransferase 45 U/L (6-50); Albumin Level 3.5 g/dL (3.5-5.1); Alkaline Phosphatase 134 U/L (38-126); Anion Gap 9 mmol/L (4-12); Aspartate Amino Transferase 52 U/L (17-59); Bilirubin,Total 0.6 mg/dL (0.2-1.3); Blood Urea Nitrogen 12 mg/dL (9-20); Calcium 7.9 mg/dL (8.4-10.2); Carbon Dioxide 26 mmol/L (22-30); Chloride 98 mmol/L (98-107); Estimated CRCL calculation 118 ml/min; Estimated Glomerular Filt Rate > 60; Glucose 131 mg/dL (65-110); Magnesium 2.3 mg/dL (1.6-2.3); Potassium 3.8 mmol/L (3.4-5.0); Sodium 133 mmol/L (137-145)
[2024-07-16 03:53] LABS: Partial Thromboplastin Time 42.5 Seconds (22.3-36.8)
[2024-07-16] MEDS: HEPARIN SODIUM 5,000 UNITS/ML VIAL 9000 UNITS IV PUSH (04:05)
--- NOTE | 2024-07-16 07:45 | P.PNCA_ITS ---
Progress Note: A&P Assessment and Plan (1) PAF (paroxysmal atrial fibrillation): Code(s): I48.0 - Paroxysmal atrial fibrillation Status: Acute Assessment and Plan: In Sinus rhythm. [id number] 2. On heparin drip. On Amiodarone drip. Rate is normal. On Amiodarone drip for more than 24 hours. Then on Amiodarone 400 mg BID for 1 week, then 200 mg BID. (2) DVT (deep venous thrombosis): Qualifiers: Affected thrombotic vein of extremity: femoral Chronicity: acute DVT location: lower extremity Laterality: right Qualified Code(s): I82.411 - Acute embolism and thrombosis of right femoral vein Code(s): I82.409 - Acute embolism and thrombosis of unspecified deep veins of unspecified lower extremity Status: Acute Assessment and Plan: On heparin drip. (3) Pulmonary embolism: Code(s): I26.99 - Other pulmonary embolism without acute cor pulmonale Status: Acute Assessment and Plan: On heparin drip. If no more surgery anticipated, consider changing Heparin drip to Eliquis DVT/PE protocol dosing. Echo ordered. (4) Osteomyelitis of right foot: Code(s): M86.9 - Osteomyelitis, unspecified Status: Acute Assessment and Plan: On antibiotics. S/P I and D. (5) Dyslipidemia: Code(s): E78.5 - Hyperlipidemia, unspecified Status: Acute Assessment and Plan: Changed Simvastatin to Atorvastatin, due to being on Amiodarone now. (6) Edema of both legs: Code(s): R60.0 - Localized edema Status: Acute Assessment and Plan: On Furosemide 40 mg PO daily. (7) Hypertension: Code(s): I10 - Essential (primary) hypertension Status: Acute Assessment and Plan: Stable. Subjective Date/time seen: 07/16/24 07:45 Interval history: No chest pain or sob. Exam Const: General: cooperative, healthy appearing, comfortable and obese Nutritional Appearance: obese Orientation/consciousness: oriented to person, oriented to place and oriented to time Resp: Auscultation: clear to auscultation bilaterally, no crackles, no rales, no rhonchi and no wheezes Cardio: Rate: regular rate Rhythm: regular rhythm Heart sounds: no murmurs Neuro: General: oriented to person, oriented to place and oriented to time Extrem: Right lower extremity: edema Left lower extremity: edema Other: Mod right leg edema and foot is wrapped. Left leg with mild edema. Objective Data Vital Signs Vital Signs: Vital Signs - 24 hr 07/15/24 08:00 07/15/24 09:58 07/15/24 09:58 Temperature 98.5 F Pulse Rate 95 129 H 129 H Respiratory Rate 18 Blood Pressure 150/89 H Pulse Oximetry 95 Oxygen Delivery Oxygen Flow Rate 07/15/24 12:00 07/15/24 08:00 07/15/24 12:00 Temperature 97.7 F Pulse Rate 81 Respiratory Rate 20 Blood Pressure 142/106 H Pulse Oximetry 99 Oxygen Delivery Room Air Room Air Oxygen Flow Rate 07/15/24 08:00 07/15/24 10:00 07/15/24 12:00 Temperature Pulse Rate 87 122 H 104 H Respiratory Rate Blood Pressure Pulse Oximetry Oxygen Delivery Oxygen Flow Rate 07/15/24 14:00 07/15/24 14:00 07/15/24 16:40 Temperature 98.0 F 97.8 F Pulse Rate 98 90 83 Respiratory Rate 16 18 Blood Pressure 148/89 H 136/85 Pulse Oximetry 100 100 Oxygen Delivery Room Air Simple Face Mask Oxygen Flow Rate 8 07/15/24 16:55 07/15/24 17:09 07/15/24 17:25 Temperature Pulse Rate 83 82 80 Respiratory Rate 20 20 16 Blood Pressure 139/94 H 146/96 H 142/86 H Pulse Oximetry 95 95 98 Oxygen Delivery Room Air Room Air Room Air Oxygen Flow Rate 07/15/24 17:40 07/15/24 17:55 07/15/24 18:00 Temperature 97.5 F L Pulse Rate 80 79 80 Respiratory Rate 20 20 18 Blood Pressure 127/87 131/83 143/83 H Pulse Oximetry 95 98 96 Oxygen Delivery Room Air Room Air Oxygen Flow Rate 07/15/24 18:26 07/15/24 18:21 07/15/24 20:00 Temperature 97.5 F L Pulse Rate 81 79 89 Respiratory Rate 18 Blood Pressure 129/82 Pulse Oximetry 100 Oxygen Delivery Oxygen Flow Rate 07/15/24 20:34 07/15/24 20:00 07/16/24 00:03 Temperature 97.6 F Pulse Rate 82 69 Respiratory Rate 20 Blood Pressure 141/91 H Pulse Oximetry 95 Oxygen Delivery Room Air Oxygen Flow Rate 07/16/24 00:00 07/15/24 20:00 07/15/24 22:00 Temperature Pulse Rate 83 81 Respiratory Rate Blood Pressure Pulse Oximetry Oxygen Delivery Room Air Oxygen Flow Rate 07/16/24 00:00 07/16/24 02:00 07/16/24 04:16 Temperature 97.8 F Pulse Rate 70 69 65 Respiratory Rate 20 Blood Pressure 114/73 Pulse Oximetry 100 Oxygen Delivery Oxygen Flow Rate 07/16/24 04:00 07/16/24 04:00 07/16/24 06:00 Temperature Pulse Rate 65 75 Respiratory Rate Blood Pressure Pulse Oximetry Oxygen Delivery Room Air Oxygen Flow Rate Intake/Output Intake/Output: Intake & Output 07/14/24 07/14/24 07/15/24 07/16/24 00:59 23:59 23:59 23:59 Intake Total 1466.5 808 Output Total 2950 1100 Balance -1483.5 -292 Meds/Results Medications: Active Medications Generic Name Dose Route Start Last Admin Trade Name Freq PRN Reason Stop Dose Admin Acetaminophen 650 mg 07/13/24 23:05 Acetaminophen 325 Mg Tablet PO Q6H PRN Mild Pain (1-3) or Fever Amiodarone HCl 400 mg 07/15/24 09:00 07/15/24 18:26 Amiodarone Hcl 200 Mg Tablet PO 400 mg BID RASTA Administration Atorvastatin Calcium 10 mg 07/14/24 09:00 07/15/24 09:58 Atorvastatin 10 Mg Tablet PO 10 mg DAILY RASTA Administration Dextrose 12.5 gm 07/13/24 23:05 Dextrose 50% 25 Gm/50 Ml Syringe IV PUSH PRN PRN Hypoglycemia Protocol Empagliflozin 25 mg 07/14/24 09:00 07/15/24 09:58 Empagliflozin 25 Mg Tablet PO 25 mg DAILY RASTA Administration Furosemide 40 mg 07/15/24 09:00 07/15/24 09:58 Furosemide 40 Mg Tablet PO 40 mg DAILY RASTA Administration Glimepiride 1 mg 07/14/24 09:00 07/15/24 09:58 Glimepiride 1 Mg Tablet PO 1 mg QAM RASTA Administration Glucagon 1 mg 07/13/24 23:05 Glucagon For Inj 1 Mg Vial IM PRN PRN Hypoglycemia Protocol Glucose 15 gm 07/13/24 23:05 Glucose Oral Gel 15 Gm Of Glucse In 37.5 Gm Tube PO PRN PRN Hypoglycemia Protocol Heparin Sodium (Porcine) 9,000 units 07/13/24 17:07 07/16/24 04:05 Heparin Sodium 5,000 Units/Ml Vial IV PUSH 9,000 units PRN PRN Administration aPTT less than 55 seconds Heparin Sodium (Porcine) 4,500 units 07/13/24 17:07 Heparin Sodium 5,000 Units/Ml Vial IV PUSH PRN PRN aPTT 55 - 70 seconds Heparin Sodium/Dextrose 25,000 units in 250 mls @ 20 mls/hr 07/13/24 17:10 07/16/24 04:06 Heparin Sodium/D5w 100 Units/Ml IV CONT 2,000 units/hr .[id number] RASTA 20 mls/hr Titration Protocol 2,000 UNITS/HR Dextrose 1,000 mls @ 100 mls/hr 07/13/24 23:05 Dextrose 5% 1,000 Ml IVPB PRN PRN Hypoglycemia Protocol Ceftriaxone Sodium 2 gm in 100 mls @ 200 mls/hr 07/15/24 21:00 07/15/24 21:04 Rocephin 2 Gm/Ns 100 Ml IVPB Infused Q24H [facility] Infusion Insulin Aspart 3 - 6 units 07/14/24 08:00 07/15/24 17:50 Insulin Aspart (*Bkc) 100 Units/Ml SUB-Q Not Given TIDWM [facility] Protocol Insulin Aspart 1 - 3 units 07/13/24 23:10 07/15/24 21:52 Insulin Aspart (*Bkc) 100 Units/Ml SUB-Q Not Given HS [facility] Protocol Metoprolol Tartrate 25 mg 07/15/24 09:00 07/15/24 20:34 Metoprolol Tartrate 25 Mg Tablet PO 25 mg Q12HR RASTA Administration Oxycodone HCl 5 mg 07/15/24 16:51 Oxycodone Hcl (*Crx) 5 Mg Tab Ir PO Q4H PRN Pain Rated 7-10 Perflutren Lipid Microsphere 0 ml 07/13/24 23:05 Perflutren Lipid Microspheres 1.5 Ml Vial Diluted To 10 Ml Total Volume IV PUSH 07/16/24 23:05 ONCE PRN adequate visualization Protocol Polyethylene Glycol 17 gm 07/16/24 09:00 Polyethylene Glycol 3350 17 Gm Powd.Pack PO QAM [facility] Radiology Results: ITS Impressions Venous Doppler Study 07/13/24 15:06 IMPRESSION: 1. Deep venous thrombosis at the right femoral and popliteal veins. Foot X-Ray 07/13/24 15:34 IMPRESSION: Osteomyelitis of distal fifth metatarsal bone and base of proximal phalanx of fifth digit, with adjacent soft tissue swelling, subcutaneous emphysema Chest X-Ray 07/13/24 15:38 IMPRESSION: Pulmonary vascular prominence and redistribution suggesting mild pulmonary venous hypertension Chest CTA 07/13/24 16:51 IMPRESSION: Bilateral subsegmental lower lobe pulmonary emboli Abdomen Ultrasound 07/14/24 15:36 IMPRESSION: Limited study; no apparent abnormality of the liver, pancreas or gallbladder Labs Labs: Laboratory Results - last 24 hr 07/15/24 07/15/24 07/15/24 07:16 07:35 12:01 WBC RBC Hgb Hct MCV MCH MCHC RDW Plt Count MPV Immature Gran % (Auto) Neut % (Auto) Lymph % (Auto) [place] % (Auto) Eos % (Auto) Baso % (Auto) Lymph # (Auto) [place] # (Auto) Eos # (Auto) Baso # (Auto) Abs Immat Gran (auto) Absolute Neuts (auto) Absolute Nucleated RBC Nucleated RBC % APTT 31.6 Sodium Potassium Chloride Carbon Dioxide Anion Gap BUN Creatinine Estim Creat Clear Calc Estimated GFR Glucose POC Capillary Glucose 145 H 117 H Calcium Magnesium Total Bilirubin AST ALT Alkaline Phosphatase Total Protein Albumin Vancomycin Trough 15.6 07/15/24 07/15/24 07/16/24 16:45 19:31 03:07 WBC 9.5 RBC 4.08 L Hgb 11.7 L Hct 36.7 L MCV 90.0 MCH 28.7 MCHC 31.9 L RDW 14.7 H Plt Count 417 H MPV 9.8 Immature Gran % (Auto) 2.2 H Neut % (Auto) 79.6 H Lymph % (Auto) 12.9 L [place] % (Auto) 5.0 Eos % (Auto) 0.0 Baso % (Auto) 0.3 Lymph # (Auto) 1.22 [place] # (Auto) 0.5 Eos # (Auto) 0.0 Baso # (Auto) 0.0 Abs Immat Gran (auto) 0.21 H Absolute Neuts (auto) 7.5 H Absolute Nucleated RBC 0.000 Nucleated RBC % 0.0 APTT 42.5 H Sodium 133 L Potassium 3.8 Chloride 98 Carbon Dioxide 26 Anion Gap 9 BUN 12 Creatinine 1.00 Estim Creat Clear Calc 118 Estimated GFR > 60 Glucose 131 H POC Capillary Glucose 115 H 188 H Calcium 7.9 L Magnesium 2.3 Total Bilirubin 0.6 AST 52 ALT 45 Alkaline Phosphatase 134 H Total Protein 8.0 Albumin 3.5 Vancomycin Trough
--- NOTE | 2024-07-16 08:00 | ECG_ITS ---
Test Date: 2024-07-16 10:37:11 Measurements Intervals [place] Rate: 80 P: 0 MS: 159 QRS: -15 QRSD: 89 T: -15 QT: 395 QTc: 458 Interpretive Statements SINUS RHYTHM WITH OCCASIONAL VENTRICULAR PREMATURE COMPLEXES WITH OCCASIONAL SUPRAVENTRICULAR PREMATURE COMPLEXES LOW QRS VOLTAGE IN PRECORDIAL LEADS PATTERN CONSISTENT WITH PULMONARY DISEASE INFERIOR INFARCT, AGE INDETERMINATE BORDERLINE T WAVE ABNORMALITY- ANTEROLATERAL LEADS ABNORMAL ECG Compared to ECG 07/14/2024 07:58:27 Atrial fibrillation no longer present Electronically Signed On 07-16-2024 10:44:00 [employer] by Felton Newton D.O.
--- NOTE | 2024-07-16 08:10 | WPDANESPN ---
Anes - Prog Note Post-Op Date/Time: 07/16/24 08:10 Cardiovascular status: normal Respiratory status: normal Airway patency: baseline Mental status: baseline Post-Op hydration status: normal Vital Signs: Last Vital Signs Temp 36.8 C 07/16/24 07:44 Pulse 79 07/16/24 07:44 Resp 16 07/16/24 07:44 BP 130/84 07/16/24 07:44 Pulse Ox 99 07/16/24 07:44 O2 Del Method Room Air 07/16/24 04:00 O2 Flow Rate 8 07/15/24 16:40 Pain Score (VAS): 10/21 I/O: Intake & Output 07/15/24 07/16/24 07/16/24 23:59 07:59 15:59 Intake Total 556.9 808 Output Total 1350 1625 Balance -793.1 -817 Laboratory Tests 07/16/24 03:07 07/16/24 03:07 07/15/24 07/15/24 07/15/24 07:16 07:35 12:01 WBC RBC Hgb Hct MCV MCH MCHC RDW Plt Count MPV Immature Gran % (Auto) Neut % (Auto) Lymph % (Auto) [place] % (Auto) Eos % (Auto) Baso % (Auto) Lymph # (Auto) [place] # (Auto) Eos # (Auto) Baso # (Auto) Abs Immat Gran (auto) Absolute Neuts (auto) Absolute Nucleated RBC Nucleated RBC % APTT 31.6 Sodium Potassium Chloride Carbon Dioxide Anion Gap BUN Creatinine Estim Creat Clear Calc Estimated GFR Glucose POC Capillary Glucose 145 H 117 H Calcium Magnesium Total Bilirubin AST ALT Alkaline Phosphatase Total Protein Albumin Vancomycin Trough 15.6 07/15/24 07/15/24 07/16/24 16:45 19:31 03:07 WBC 9.5 RBC 4.08 L Hgb 11.7 L Hct 36.7 L MCV 90.0 MCH 28.7 MCHC 31.9 L RDW 14.7 H Plt Count 417 H MPV 9.8 Immature Gran % (Auto) 2.2 H Neut % (Auto) 79.6 H Lymph % (Auto) 12.9 L [place] % (Auto) 5.0 Eos % (Auto) 0.0 Baso % (Auto) 0.3 Lymph # (Auto) 1.22 [place] # (Auto) 0.5 Eos # (Auto) 0.0 Baso # (Auto) 0.0 Abs Immat Gran (auto) 0.21 H Absolute Neuts (auto) 7.5 H Absolute Nucleated RBC 0.000 Nucleated RBC % 0.0 APTT 42.5 H Sodium 133 L Potassium 3.8 Chloride 98 Carbon Dioxide 26 Anion Gap 9 BUN 12 Creatinine 1.00 Estim Creat Clear Calc 118 Estimated GFR > 60 Glucose 131 H POC Capillary Glucose 115 H 188 H Calcium 7.9 L Magnesium 2.3 Total Bilirubin 0.6 AST 52 ALT 45 Alkaline Phosphatase 134 H Total Protein 8.0 Albumin 3.5 Vancomycin Trough Microbiology 07/13/24 15:08 Blood Blood Culture - Final Group B Streptococcus isolated 07/13/24 15:08 Blood Blood Culture - Preliminary Gram negative bacilli isolated Post-procedural complaints: none Patient Feedback: Patient satisfied with anesthetic care.
[2024-07-16 08:27] LABS: Glucose Point of Care 128 mg/dl (65-105)
[2024-07-16] MEDS: ATORVASTATIN 10 MG TABLET PO (09:05)
[2024-07-16] MEDS: GLIMEPIRIDE 1 MG TABLET PO (09:05)
[2024-07-16] MEDS: EMPAGLIFLOZIN 25 MG TABLET PO (09:06)
[2024-07-16] MEDS: polyethylene glycoL 3350 17 GM POWD.PACK PO (09:06)
[2024-07-16] MEDS: METOPROLOL TARTRATE 25 MG TABLET PO ×2 (09:06→20:35)
[2024-07-16] MEDS: AMIODARONE HCL 200 MG TABLET 400 MG PO ×2 (09:06→17:51)
[2024-07-16] MEDS: FUROSEMIDE 40 MG TABLET PO (09:06)
[2024-07-16 10:37] LABS: Partial Thromboplastin Time 67.3 Seconds (22.3-36.8)
[2024-07-16] MEDS: PERFLUTREN LIPID MICROSPHERES 1.5 ML VIAL DILUTED TO 10 ML TOTAL VOLUME IV PUSH (10:57)
--- NOTE | 2024-07-16 10:57 | IVDEFINITY ---
Prior to administration of IV Definity the patient was educated on the risks and benefits of the imaging enhancing agent including potential adverse side effects. The patient verbalized understanding. Allergies were verified. No exclusion criteria were identified and at least one of the following inclusion criteria were met: 1) physician request, 2) patient technically difficult to image (per the [place] [employer] guidelines of two or more segments not discernable within the apical view), or 3) questionable left ventricular function. ?
--- NOTE | 2024-07-16 11:13 | P.PNIM_ITS ---
Progress Note: A&P Assessment and Plan (1) Sepsis: Code(s): A41.9 - Sepsis, unspecified organism Status: Acute (2) Osteomyelitis of right foot: Code(s): M86.9 - Osteomyelitis, unspecified Status: Acute (3) Diabetic ulcer of right foot: Code(s): E11.621 - Type 2 diabetes mellitus with foot ulcer; L97.519 - Non-pressure chronic ulcer of other part of right foot with unspecified severity Status: Acute (4) Diabetic infection of right foot: Code(s): E11.628 - Type 2 diabetes mellitus with other skin complications; L08.9 - Local infection of the skin and subcutaneous tissue, unspecified Status: Acute (5) Deep vein thrombosis of right lower extremity: Code(s): I82.401 - Acute embolism and thrombosis of unspecified deep veins of right lower extremity Status: Acute (6) Bilateral pulmonary embolism: Code(s): I26.99 - Other pulmonary embolism without acute cor pulmonale Status: Acute (7) Atrial fibrillation with rapid ventricular response: Code(s): I48.91 - Unspecified atrial fibrillation Status: Acute (8) Elevated LFTs: Code(s): R79.89 - Other specified abnormal findings of blood chemistry Status: Acute (9) Hypertension: Code(s): I10 - Essential (primary) hypertension Status: Acute (10) Type 2 diabetes mellitus: Code(s): E11.9 - Type 2 diabetes mellitus without complications Status: Acute (11) Obstructive sleep apnea: Code(s): G47.33 - Obstructive sleep apnea (adult) (pediatric) Status: Acute Plan Diabetic right foot ulcer with osteomyelitis Osteomyelitis of distal fifth metatarsal bone and base of proximal phalanx of fifth digit, with adjacent soft tissue swelling, subcutaneous emphysema Blood culture positive GBS narrowed abx to Rocephin per blood culture (07/15/2024) Day 1 Incision and drainage of right foot diabetic wound abscess with excisional debridement Gen surgery on board Group B streptococcemia Blood culture positive for GBS Antibiotics whittled down on Rocephin pending tissue culture PE/DVT CT chest and Venous doppler showed DVT RLE s/p Heparin infusion Started Eliquis 10 mg p.o. b.i.d. for 7 days and continues with Eliquis 5 mg p.o. b.i.d. ECHO shows left ventricular systolic function 55-60% Afib RVR, new onset [id number] 2 s/p Amiodarone infusion, now on Amiodarone 400mg bid, transition to 200mg bid after 7 days ECHO completed Started Eliquis 10 mg p.o. b.i.d. for 7 days and continues with Eliquis 5 mg p.o. b.i.d. DM2 SSi with accucheks HTN titrate home meds with clinical course RADHA on CPAP DVT prophylaxis on heparin infusion Subjective Date/time seen: 07/16/24 11:13 Interval history: Patient heparin drip will be stopped. Started daily Eliquis 10 mg b.i.d. for 7 days and will continue 5 mg b.i.d. pulmonary embolism and right DVT. Patient is postop day 1 status post incision and drainage of right foot diabetic wound abscess with excisional debridement. ECHO is performed pending read. Patient has a new diagnosis AFib with RVR. Currently on amiodarone drip and then amiodarone 400 mg b.i.d. for a 200 mg b.i.d.. Patient follows with Dr. Newton. Of note patient has a remote history of [place] 2011, patient reports 50% occlusion but does not remember which artery. Never had any stent or CABG. Recently he visited were advised to continue the current management.Today repeated blood culture. Review of Systems Review of Systems: 12 systems were reviewed and are negativ e except for as per HPI. Exam Narrative: General: Moderately ill-appearing male in the semi-Bedoya position in bed. Weight: 172.6 kg. BMI: 51.6. HEENT: Wearing corrective lenses. PERRL, EOMI. Sclera anicteric. Tacky mucous membranes. Oropharynx is crowded. Neck: Supple. Exam limited due to neck circumference. No obvious JVD or lymphadenopathy. Respiratory: Respirations are nonlabored and he is speaking in full sentences. Lungs are clear to auscultation. Cardiovascular: Irregularly irregular rate and rhythm. Gastrointestinal: Abdomen is soft, morbidly obese, nontender, and nondistended with positive bowel sounds. Skin: Warm and dry. There is an ulcerative lesion on the lateral plantar aspect of the right foot draining malodorous, purulent fluid with surrounding warmth and erythema. No obvious crepitus noted. Extremities: No cyanosis or clubbing. Legs are large. There is pitting edema of the right lower extremity. No obvious palpable knots or cords. Neurological: Alert. Cranial nerves 2-12 are grossly intact. No gross focal deficits to casual conversation. Psychiatric: Pleasant and cooperative with normal mood and affect. Judgment and insight intact. Objective Data Vital Signs Vital Signs: Vital Signs - 24 hr 07/15/24 12:00 07/15/24 12:00 07/15/24 12:00 Temperature 97.7 F Pulse Rate 81 104 H Respiratory Rate 20 Blood Pressure 142/106 H Pulse Oximetry 99 Oxygen Delivery Room Air Oxygen Flow Rate 07/15/24 14:00 07/15/24 14:00 07/15/24 16:40 Temperature 98.0 F 97.8 F Pulse Rate 98 90 83 Respiratory Rate 16 18 Blood Pressure 148/89 H 136/85 Pulse Oximetry 100 100 Oxygen Delivery Room Air Simple Face Mask Oxygen Flow Rate 8 07/15/24 16:55 07/15/24 17:09 07/15/24 17:25 Temperature Pulse Rate 83 82 80 Respiratory Rate 20 20 16 Blood Pressure 139/94 H 146/96 H 142/86 H Pulse Oximetry 95 95 98 Oxygen Delivery Room Air Room Air Room Air Oxygen Flow Rate 07/15/24 17:40 07/15/24 17:55 07/15/24 18:00 Temperature 97.5 F L Pulse Rate 80 79 80 Respiratory Rate 20 20 18 Blood Pressure 127/87 131/83 143/83 H Pulse Oximetry 95 98 96 Oxygen Delivery Room Air Room Air Oxygen Flow Rate 07/15/24 18:26 07/15/24 18:21 07/15/24 20:00 Temperature 97.5 F L Pulse Rate 81 79 89 Respiratory Rate 18 Blood Pressure 129/82 Pulse Oximetry 100 Oxygen Delivery Oxygen Flow Rate 07/15/24 20:34 07/15/24 20:00 07/16/24 00:03 Temperature 97.6 F Pulse Rate 82 69 Respiratory Rate 20 Blood Pressure 141/91 H Pulse Oximetry 95 Oxygen Delivery Room Air Oxygen Flow Rate 07/16/24 00:00 07/15/24 20:00 07/15/24 22:00 Temperature Pulse Rate 83 81 Respiratory Rate Blood Pressure Pulse Oximetry Oxygen Delivery Room Air Oxygen Flow Rate 07/16/24 00:00 07/16/24 02:00 07/16/24 04:16 Temperature 97.8 F Pulse Rate 70 69 65 Respiratory Rate 20 Blood Pressure 114/73 Pulse Oximetry 100 Oxygen Delivery Oxygen Flow Rate 07/16/24 04:00 07/16/24 04:00 07/16/24 06:00 Temperature Pulse Rate 65 75 Respiratory Rate Blood Pressure Pulse Oximetry Oxygen Delivery Room Air Oxygen Flow Rate 07/16/24 07:44 07/16/24 08:00 07/16/24 08:00 Temperature 98.3 F Pulse Rate 79 85 Respiratory Rate 16 Blood Pressure 130/84 Pulse Oximetry 99 Oxygen Delivery Room Air Oxygen Flow Rate 07/16/24 10:34 07/16/24 11:10 Temperature Pulse Rate Respiratory Rate Blood Pressure Pulse Oximetry 95 Oxygen Delivery Room Air Room Air Oxygen Flow Rate Intake/Output Intake/Output: Intake & Output 07/14/24 07/14/24 07/15/24 07/16/24 00:59 23:59 23:59 23:59 Intake Total 1466.5 1176 Output Total 2950 1800 Balance -1483.5 -624 Meds/Results Medications: Active Medications Generic Name Dose Route Start Last Admin Trade Name Freq PRN Reason Stop Dose Admin Acetaminophen 650 mg 07/13/24 23:05 Acetaminophen 325 Mg Tablet PO Q6H PRN Mild Pain (1-3) or Fever Amiodarone HCl 400 mg 07/15/24 09:00 07/16/24 09:06 Amiodarone Hcl 200 Mg Tablet PO 400 mg BID RASTA Administration Apixaban 10 mg 07/16/24 12:30 Apixaban 5 Mg Tablet PO 07/22/24 21:01 Q12HR RASTA Apixaban 5 mg 07/23/24 09:00 Apixaban 5 Mg Tablet PO Q12HR RASTA Atorvastatin Calcium 10 mg 07/14/24 09:00 07/16/24 09:05 Atorvastatin 10 Mg Tablet PO 10 mg DAILY RASTA Administration Dextrose 12.5 gm 07/13/24 23:05 Dextrose 50% 25 Gm/50 Ml Syringe IV PUSH PRN PRN Hypoglycemia Protocol Empagliflozin 25 mg 07/14/24 09:00 07/16/24 09:06 Empagliflozin 25 Mg Tablet PO 25 mg DAILY RASTA Administration Furosemide 40 mg 07/15/24 09:00 07/16/24 09:06 Furosemide 40 Mg Tablet PO 40 mg DAILY RASTA Administration Glimepiride 1 mg 07/14/24 09:00 07/16/24 09:05 Glimepiride 1 Mg Tablet PO 1 mg QAM RASTA Administration Glucagon 1 mg 07/13/24 23:05 Glucagon For Inj 1 Mg Vial IM PRN PRN Hypoglycemia Protocol Glucose 15 gm 07/13/24 23:05 Glucose Oral Gel 15 Gm Of Glucse In 37.5 Gm Tube PO PRN PRN Hypoglycemia Protocol Heparin Sodium (Porcine) 9,000 units 07/13/24 17:07 07/16/24 04:05 Heparin Sodium 5,000 Units/Ml Vial IV PUSH 9,000 units PRN PRN Administration aPTT less than 55 seconds Heparin Sodium (Porcine) 4,500 units 07/13/24 17:07 Heparin Sodium 5,000 Units/Ml Vial IV PUSH PRN PRN aPTT 55 - 70 seconds Heparin Sodium/Dextrose 25,000 units in 250 mls @ 20 mls/hr 07/13/24 17:10 07/16/24 10:30 Heparin Sodium/D5w 100 Units/Ml IV CONT Infused .[id number] RASTA Titration Protocol 2,000 UNITS/HR Dextrose 1,000 mls @ 100 mls/hr 07/13/24 23:05 Dextrose 5% 1,000 Ml IVPB PRN PRN Hypoglycemia Protocol Ceftriaxone Sodium 2 gm in 100 mls @ 200 mls/hr 07/15/24 21:00 07/15/24 21:04 Rocephin 2 Gm/Ns 100 Ml IVPB Infused Q24H RASTA Infusion Insulin Aspart 3 - 6 units 07/14/24 08:00 07/16/24 09:03 Insulin Aspart (*Bkc) 100 Units/Ml SUB-Q Not Given TIDWM [facility] Protocol Insulin Aspart 1 - 3 units 07/13/24 23:10 07/15/24 21:52 Insulin Aspart (*Bkc) 100 Units/Ml SUB-Q Not Given HS [facility] Protocol Metoprolol Tartrate 25 mg 07/15/24 09:00 07/16/24 09:06 Metoprolol Tartrate 25 Mg Tablet PO 25 mg Q12HR RASTA Administration Oxycodone HCl 5 mg 07/15/24 16:51 Oxycodone Hcl (*Crx) 5 Mg Tab Ir PO Q4H PRN Pain Rated 7-10 Polyethylene Glycol 17 gm 07/16/24 09:00 07/16/24 09:06 Polyethylene Glycol 3350 17 Gm Powd.Pack PO 17 gm QAM RASTA Administration Radiology Results: ITS Impressions Venous Doppler Study 07/13/24 15:06 IMPRESSION: 1. Deep venous thrombosis at the right femoral and popliteal veins. Foot X-Ray 07/13/24 15:34 IMPRESSION: Osteomyelitis of distal fifth metatarsal bone and base of proximal p halanx of fifth digit, with adjacent soft tissue swelling, subcutaneous emphysema Chest X-Ray 07/13/24 15:38 IMPRESSION: Pulmonary vascular prominence and redistribution suggesting mild pulmonary venous hypertension Chest CTA 07/13/24 16:51 IMPRESSION: Bilateral subsegmental lower lobe pulmonary emboli Abdomen Ultrasound 07/14/24 15:36 IMPRESSION: Limited study; no apparent abnormality of the liver, pancreas or gallbladder Labs Labs: Laboratory Results - last 24 hr 07/15/24 07/15/24 07/15/24 12:01 16:45 19:31 WBC RBC Hgb Hct MCV MCH MCHC RDW Plt Count MPV Immature Gran % (Auto) Neut % (Auto) Lymph % (Auto) [place] % (Auto) Eos % (Auto) Baso % (Auto) Lymph # (Auto) [place] # (Auto) Eos # (Auto) Baso # (Auto) Abs Immat Gran (auto) Absolute Neuts (auto) Absolute Nucleated RBC Nucleated RBC % APTT Sodium Potassium Chloride Carbon Dioxide Anion Gap BUN Creatinine Estim Creat Clear Calc Estimated GFR Glucose POC Capillary Glucose 117 H 115 H 188 H Calcium Magnesium Total Bilirubin AST ALT Alkaline Phosphatase Total Protein Albumin 07/16/24 07/16/24 07/16/24 03:07 07:43 10:21 WBC 9.5 RBC 4.08 L Hgb 11.7 L Hct 36.7 L MCV 90.0 MCH 28.7 MCHC 31.9 L RDW 14.7 H Plt Count 417 H MPV 9.8 Immature Gran % (Auto) 2.2 H Neut % (Auto) 79.6 H Lymph % (Auto) 12.9 L [place] % (Auto) 5.0 Eos % (Auto) 0.0 Baso % (Auto) 0.3 Lymph # (Auto) 1.22 [place] # (Auto) 0.5 Eos # (Auto) 0.0 Baso # (Auto) 0.0 Abs Immat Gran (auto) 0.21 H Absolute Neuts (auto) 7.5 H Absolute Nucleated RBC 0.000 Nucleated RBC % 0.0 APTT 42.5 H 67.3 H Sodium 133 L Potassium 3.8 Chloride 98 Carbon Dioxide 26 Anion Gap 9 BUN 12 Creatinine 1.00 Estim Creat Clear Calc 118 Estimated GFR > 60 Glucose 131 H POC Capillary Glucose 128 H Calcium 7.9 L Magnesium 2.3 Total Bilirubin 0.6 AST 52 ALT 45 Alkaline Phosphatase 134 H Total Protein 8.0 Albumin 3.5 Quality VTE Prophylaxis VTE prophylaxis: pharmacologic ordered (currently on a heparin drip for DVT and PE) Hospitalist MIPS Advance Care Plan I have confirmed that the patient's Advanced Care Plan is present, code status is documented, or surrogate decision maker is listed in patient medical record.: Yes Medication Reconciliation I have utilized all available resources to obtain, update and review the ceci ents current medications (includes all prescriptions, OTC, herbals, cannabis, and nutritional supplements).: Yes
[2024-07-16 11:21] LABS: Glucose Point of Care 165 mg/dl (65-105)
[2024-07-16] MEDS: APIXABAN 5 MG TABLET 10 MG PO ×2 (13:28→20:34)
[2024-07-16] MEDS: metroNIDAZOLE 500 MG TABLET PO ×2 (14:26→20:35)
--- NOTE | 2024-07-16 15:47 | PM.PNGS ---
Progress Note: A&P Assessment and Plan (1) Diabetic ulcer of right foot: Code(s): E11.621 - Type 2 diabetes mellitus with foot ulcer; L97.519 - Non-pressure chronic ulcer of other part of right foot with unspecified severity Status: Acute Assessment and Plan: Patient has a diabetic right foot ulcer with abscess. He is postop day 1 following incision and drainage, as well as debridement of the right foot ulcer and abscess. There was evidence of osteomyelitis of the fifth metatarsal and he will require long-term IV antibiotics. I have consulted care coordination for home health and we will also have a PICC line placed. Continue IV antibiotics for now. Continue with daily iodoform packing dressing changes. Elevate the right lower extremity. Physical therapy ordered. Patient is okay to transfer to chair with heel touch weight-bearing for now. (2) Osteomyelitis of right foot: Code(s): M86.9 - Osteomyelitis, unspecified Status: Acute Assessment and Plan: Destruction of the shaft of the fifth metatarsal with likely osteomyelitis. Portion of the soft infected bone was sent to microbiology for tissue culture. He will need IV antibiotics for 6 weeks. I have consulted care coordination to set up home health and approval for IV antibiotics. He will need PICC line placement, but we will defer this until his repeat blood cultures are negative. Initial blood cultures on 07/13/2024 positive for group B strep and Bacteroides vulgatus. Repeat blood cultures ordered today. (3) Atrial fibrillation with rapid ventricular response: Code(s): I48.91 - Unspecified atrial fibrillation Status: Acute Assessment and Plan: Transitioned to oral anticoagulation. Managed by Cardiology and hospitalist service. (4) Bilateral pulmonary embolism: Code(s): I26.99 - Other pulmonary embolism without acute cor pulmonale Status: Acute Assessment and Plan: Heparin drip stopped and now on Eliquis. (5) Deep vein thrombosis of right lower extremity: Code(s): I82.401 - Acute embolism and thrombosis of unspecified deep veins of right lower extremity Status: Acute Assessment and Plan: Will need oral anticoagulation for at least 6 months. Plan I have discussed the patient's case and plan of care with Dr. Montgomery. Subjective Subjective Date/Time Seen: 07/16/24 15:47 Post Op day: 1 (Incision and drainage right foot abscess and debridement of right foot wound) Patient reports: no new complaints and afebrile Interval history: Patient is doing well today. Denies any foot pain. He is sitting up in the chair and tolerating this well. No acute complaints. Exam Const: General: comfortable and no acute distress Orientation/consciousness: patient oriented x3 Skin: Other: Right foot dressing removed. He has a 4 cm open wound on the lateral side of the foot near the fifth metatarsal head with bone exposed. Erythema and edema improved. No purulent drainage. The wound was repacked with quarter-inch iodoform gauze and covered with a gauze dressing and [place] wraps. Objective Data Vital Signs Vital Signs: Vital Signs - 24 hr 07/15/24 16:40 07/15/24 16:55 07/15/24 17:09 Temperature 97.8 F Pulse Rate 83 83 82 Respiratory Rate 18 20 20 Blood Pressure 136/85 139/94 H 146/96 H Pulse Oximetry 100 95 95 Oxygen Delivery Simple Face Mask Room Air Room Air Oxygen Flow Rate 8 07/15/24 17:25 07/15/24 17:40 07/15/24 17:55 Temperature Pulse Rate 80 80 79 Respiratory Rate 16 20 20 Blood Pressure 142/86 H 127/87 131/83 Pulse Oximetry 98 95 98 Oxygen Delivery Room Air Room Air Room Air Oxygen Flow Rate 07/15/24 18:00 07/15/24 18:26 07/15/24 18:21 Temperature 97.5 F L Pulse Rate 80 81 79 Respiratory Rate 18 Blood Pressure 143/83 H Pulse Oximetry 96 Oxygen Delivery Oxygen Flow Rate 07/15/24 20:00 07/15/24 20:34 07/15/24 20:00 Temperature 97.5 F L Pulse Rate 89 82 Respiratory Rate 18 Blood Pressure 129/82 Pulse Oximetry 100 Oxygen Delivery Room Air Oxygen Flow Rate 07/16/24 00:03 07/16/24 00:00 07/15/24 20:00 Temperature 97.6 F Pulse Rate 69 83 Respiratory Rate 20 Blood Pressure 141/91 H Pulse Oximetry 95 Oxygen Delivery Room Air Oxygen Flow Rate 07/15/24 22:00 07/16/24 00:00 07/16/24 02:00 Temperature Pulse Rate 81 70 69 Respiratory Rate Blood Pressure Pulse Oximetry Oxygen Delivery Oxygen Flow Rate 07/16/24 04:16 07/16/24 04:00 07/16/24 04:00 Temperature 97.8 F Pulse Rate 65 65 Respiratory Rate 20 Blood Pressure 114/73 Pulse Oximetry 100 Oxygen Delivery Room Air Oxygen Flow Rate 07/16/24 06:00 07/16/24 07:44 07/16/24 08:00 Temperature 98.3 F Pulse Rate 75 79 Respiratory Rate 16 Blood Pressure 130/84 Pulse Oximetry 99 Oxygen Delivery Room Air Oxygen Flow Rate 07/16/24 08:00 07/16/24 10:34 07/16/24 11:10 Temperature Pulse Rate 85 Respiratory Rate Blood Pressure Pulse Oximetry 95 Oxygen Delivery Room Air Room Air Oxygen Flow Rate 07/16/24 11:20 07/16/24 10:00 07/16/24 12:00 Temperature 97.9 F Pulse Rate 76 73 99 Respiratory Rate 16 Blood Pressure 120/71 Pulse Oximetry 97 Oxygen Delivery Oxygen Flow Rate Intake/Output Intake/Output: Intake & Output 07/14/24 07/14/24 07/15/24 07/16/24 00:59 23:59 23:59 23:59 Intake Total 1466.5 1296 Output Total 2950 3050 Balance -1483.5 -1754 Meds/Results Medications: Active Medications Generic Name Dose Route Start Last Admin Trade Name Freq PRN Reason Stop Dose Admin Acetaminophen 650 mg 07/13/24 23:05 Acetaminophen 325 Mg Tablet PO Q6H PRN Mild Pain (1-3) or Fever Amiodarone HCl 400 mg 07/15/24 09:00 07/16/24 09:06 Amiodarone Hcl 200 Mg Tablet PO 400 mg BID RASTA Administration Apixaban 10 mg 07/16/24 12:30 07/16/24 13:28 Apixaban 5 Mg Tablet PO 07/22/24 21:01 10 mg Q12HR RASTA Administration Apixaban 5 mg 07/23/24 09:00 Apixaban 5 Mg Tablet PO Q12HR RASTA Atorvastatin Calcium 10 mg 07/14/24 09:00 07/16/24 09:05 Atorvastatin 10 Mg Tablet PO 10 mg DAILY RASTA Administration Dextrose 12.5 gm 07/13/24 23:05 Dextrose 50% 25 Gm/50 Ml Syringe IV PUSH PRN PRN Hypoglycemia Protocol Empagliflozin 25 mg 07/14/24 09:00 07/16/24 09:06 Empagliflozin 25 Mg Tablet PO 25 mg DAILY RASTA Administration Furosemide 40 mg 07/15/24 09:00 07/16/24 09:06 Furosemide 40 Mg Tablet PO 40 mg DAILY RASTA Administration Glimepiride 1 mg 07/14/24 09:00 07/16/24 09:05 Glimepiride 1 Mg Tablet PO 1 mg QAM RASTA Administration Glucagon 1 mg 07/13/24 23:05 Glucagon For Inj 1 Mg Vial IM PRN PRN Hypoglycemia Protocol Glucose 15 gm 07/13/24 23:05 Glucose Oral Gel 15 Gm Of Glucse In 37.5 Gm Tube PO PRN PRN Hypoglycemia Protocol Dextrose 1,000 mls @ 100 mls/hr 07/13/24 23:05 Dextrose 5% 1,000 Ml IVPB PRN PRN Hypoglycemia Protocol Ceftriaxone Sodium 2 gm in 100 mls @ 200 mls/hr 07/15/24 21:00 07/15/24 21:04 Rocephin 2 Gm/Ns 100 Ml IVPB Infused Q24H RASTA Infusion Insulin Aspart 3 - 6 units 07/14/24 08:00 07/16/24 12:27 Insulin Aspart (*Bkc) 100 Units/Ml SUB-Q Not Given TIDWM [facility] Protocol Insulin Aspart 1 - 3 units 07/13/24 23:10 07/15/24 21:52 Insulin Aspart (*Bkc) 100 Units/Ml SUB-Q Not Given HS [facility] Protocol Metoprolol Tartrate 25 mg 07/15/24 09:00 07/16/24 09:06 Metoprolol Tartrate 25 Mg Tablet PO 25 mg Q12HR RASTA Administration Metronidazole 500 mg 07/16/24 13:45 07/16/24 14:26 Metronidazole 500 Mg Tablet PO 500 mg Q8HR RASTA Administration Oxycodone HCl 5 mg 07/15/24 16:51 Oxycodone Hcl (*Crx) 5 Mg Tab Ir PO Q4H PRN Pain Rated 7-10 Polyethylene Glycol 17 gm 07/16/24 09:00 07/16/24 09:06 Polyethylene Glycol 3350 17 Gm Powd.Pack PO 17 gm QAM RASTA Administration Radiology Results: ITS Impressions Venous Doppler Study 07/13/24 15:06 IMPRESSION: 1. Deep venous thrombosis at the right femoral and popliteal veins. Foot X-Ray 07/13/24 15:34 IMPRESSION: Osteomyelitis of distal fifth metatarsal bone and base of proximal phalanx of fifth digit, with adjacent soft tissue swelling, subcutaneous emphysema Chest X-Ray 07/13/24 15:38 IMPRESSION: Pulmonary vascular prominence and redistribution suggesting mild pulmonary venous hypertension Chest CTA 07/13/24 16:51 IMPRESSION: Bilateral subsegmental lower lobe pulmonary emboli Abdomen Ultrasound 07/14/24 15:36 IMPRESSION: Limited study; no apparent abnormality of the liver, pancreas or gallbladder Labs Labs: Laboratory Results - last 24 hr 07/15/24 07/15/24 07/16/24 16:45 19:31 03:07 WBC 9.5 RBC 4.08 L Hgb 11.7 L Hct 36.7 L MCV 90.0 MCH 28.7 MCHC 31.9 L RDW 14.7 H Plt Count 417 H MPV 9.8 Immature Gran % (Auto) 2.2 H Neut % (Auto) 79.6 H Lymph % (Auto) 12.9 L [place] % (Auto) 5.0 Eos % (Auto) 0.0 Baso % (Auto) 0.3 Lymph # (Auto) 1.22 [place] # (Auto) 0.5 Eos # (Auto) 0.0 Baso # (Auto) 0.0 Abs Immat Gran (auto) 0.21 H Absolute Neuts (auto) 7.5 H Absolute Nucleated RBC 0.000 Nucleated RBC % 0.0 APTT 42.5 H Sodium 133 L Potassium 3.8 Chloride 98 Carbon Dioxide 26 Anion Gap 9 BUN 12 Creatinine 1.00 Estim Creat Clear Calc 118 Estimated GFR > 60 Glucose 131 H POC Capillary Glucose 115 H 188 H Calcium 7.9 L Magnesium 2.3 Total Bilirubin 0.6 AST 52 ALT 45 Alkaline Phosphatase 134 H Total Protein 8.0 Albumin 3.5 07/16/24 07/16/24 07/16/24 07:43 10:21 11:17 WBC RBC Hgb Hct MCV MCH MCHC RDW Plt Count MPV Immature Gran % (Auto) Neut % (Auto) Lymph % (Auto) [place] % (Auto) Eos % (Auto) Baso % (Auto) Lymph # (Auto) [place] # (Auto) Eos # (Auto) Baso # (Auto) Abs Immat Gran (auto) Absolute Neuts (auto) Absolute Nucleated RBC Nucleated RBC % APTT 67.3 H Sodium Potassium Chloride Carbon Dioxide Anion Gap BUN Creatinine Estim Creat Clear Calc Estimated GFR Glucose POC Capillary Glucose 128 H 165 H Calcium Magnesium Total Bilirubin AST ALT Alkaline Phosphatase Total Protein Albumin
[2024-07-16 16:28] LABS: Glucose Point of Care 157 mg/dl (65-105)
[2024-07-16 20:34] LABS: Glucose Point of Care 136 mg/dl (65-105)
[2024-07-16] MEDS: cefTRIAXone 2 GM/NS 100 ML 2 GM/100 ML BAG IVPB (20:35)
--- NOTE | 2024-07-16 23:05 | ECHO_ITS ---
Patient Info Name: Benny Ramirez Age: 59 years : 1965 Gender: Male Ht: 72 in Wt: 380 lbs BSA: 3.05 m2 HR: 75 bpm BP: 114 / 73 mmHg Technical Quality: Fair Exam Date: 07/16/2024 9:33 AM Exam Location: Echo Lab Patient Status: Inpatient Admit Date: 07/15/2024 Staff Ordering Physician: Leia Munroe PA-C Head Porter: Isael Campbell RDCS Attending Provider: Charlie Hamilton MD Referring Physician: Ludwig SIERRA; Exam Type: CA echo dop color flow w con Study Info Indications I48.1 - Persistent atrial fibrillation Complete two-dimensional, color flow and Doppler transthoracic echocardiogram is performed with contrast to opacify the left ventricle and to improve the deliniation of the left ventricle endocardial borders. Contrast/Agitated Saline Contrast/Ag. Saline: Definity Amount: 3.00 ml Existing IV Access: Yes IV Access Condition: patent with no signs of infiltration Summary 1. Definity contrast administered improved wall motion interpretation. 2. Left ventricular chamber dimension is normal. 3. Left ventricular systolic function is normal, estimated at 55-60%. 4. The left ventricular diastolic function is grade III diastolic dysfunction. 5. E/e' 13 is mildly elevated. 6. Left atrial chamber dimension is mildly enlarged. 7. There is mild aortic valve sclerosis. 8. The mitral valve has moderately calcified annulus. 9. There is trace tricuspid valve regurgitation. 10. Mild pulmonary hypertension, estimated pulmonary arterial systolic pressure is 45 mmHg. 11. Dilated inferior vena cava with >50% collapse upon inspiration consistent with elevated right atrial pressure, 10 mmHg. Left Ventricle Definity contrast administered improved wall motion interpretation. E/e' 13 is mildly elevated. Left ventricular chamber dimension is normal. Left ventricular systolic function is normal, estimated at 55-60%. The left ventricular diastolic function is grade III diastolic dysfunction. Right Ventricle Right ventricular systolic function is normal and with normal TAPSE 1.7 cm. Right ventricular chamber dimension is normal. Left Atria Left atrial chamber dimension is mildly enlarged. Right Atria Right atrial chamber dimension is normal. Aortic Valve The aortic valve is trileaflet. There is mild aortic valve sclerosis. There is no aortic valve stenosis. There is no aortic valve regurgitation. Pulmonic Valve There is no pulmonic regurgitation. Mitral Valve The mitral valve has moderately calcified annulus. There is no mitral valve stenosis. There is no mitral valve regurgitation. Tricuspid Valve There is trace tricuspid valve regurgitation. Mild pulmonary hypertension, estimated pulmonary arterial systolic pressure is 45 mmHg. Pericardium/Pleural There is no pericardial effusion. Inferior Vena Cava Dilated inferior vena cava with >50% collapse upon inspiration consistent with elevated right atrial pressure, 10 mmHg. Aorta The aortic root size at the sinus of Valsalva is normal. Left Ventricular Outflow Tract Name Value Normal LVOT 2D LVOT Diameter 2.18 cm LVOT Doppler LVOT Peak Gradient 5 mmHg LVOT Mean Gradient 2 mmHg LVOT VTI 20.54 cm LVOT VTI/AV VTI Ratio 0.73 LVOT Stroke Volume 76.80 ml LVOT CO 5.66 l/min LVOT CI 1.86 L/min/m2 Pulmonic Valve Name Value Normal PV Doppler PV Peak Gradient 2 mmHg Mitral Valve Name Value Normal MV Doppler MV Decel Toole 808.77 cm/s2 MV PHT 0 s MV Area (PHT) 4.27 cm2 4.00-5.00 MV Diastolic Function MV E Peak Velocity 143.55 cm/s MV A Peak Velocity 56.02 cm/s MV E/A 2.56 MV Decel Time 0 s Tricuspid Valve Name Value Normal TV Regurgitation Doppler TR Peak Velocity 295.71 cm/s TR Peak Gradient 35 mmHg Estimated PAP/RSVP RA Pressure 10 mmHg <=5 PA Systolic Pressure 45 mmHg <36 RV Systolic Pressure 45 mmHg <36 Aorta Name Value Normal Ascending Aorta Ao Root Diameter (MM) 2.98 cm Ao Root Diam Index (MM) 0.98 cm/m2 Aortic Valve Name Value Normal AV Doppler AV Peak Velocity 138.68 cm/s AV Peak Gradient 8 mmHg AV Mean Gradient 4 mmHg AV VTI 28.08 cm AV Area (Cont Eq VTI) 2.74 cm2 >=3.00 AV Area (Cont Eq Venkata) 2.87 cm2 AV Regurgitation 2D LVOT Area 3.74 cm2 Ventricles Name Value Normal LV Dimensions 2D/MM IVS Diastolic Thickness (2D) 1.03 cm 0.60-1.00 IVS Diastole Thickness (MM) 0.68 cm 0.60-1.00 LVID Diastole (2D) 4.94 cm 4.20-5.80 LVID Diastole (MM) 6.68 cm 4.20-5.80 LVIW Diastolic Thickness (2D) 1.13 cm 0.60-1.00 LVIW Diastolic Thickness (MM) 0.75 cm 0.60-1.00 LVID Systole (2D) 4.45 cm 2.50-4.00 LVID Systole (MM) 4.90 cm 2.50-4.00 LVOT Diameter 2.18 cm LV Mass (2D Cubed) 198.77 g 88.00-224.00 LV Mass Index (2D Cubed) 0.01 g/cm2 0.00-0.01 Relative Wall Thickness (2D) 0.46 LV Mass (MM Cubed) 197.46 g 88.00-224.00 LV Mass Index (MM Cubed) 0.01 g/cm2 0.00-0.01 Relative Wall Thickness (MM) 0.23 LV Fractional Shortening/Ejection Fraction 2D/MM LV Fractional Shortening (2D) 10 % 25-43 LV Fractional Shortening (MM) 27 % 25-43 LV EF (MM Teicholz) 51 % 52-72 LV EF (2D Teicholz) 22 % 52-72 LV Diastolic Volume (4C MOD) 127.97 ml LV EF (4C MOD) 55 % LV Diastolic Volume (2C MOD) 95.22 ml LV EF (2C MOD) 48 % LV Diastolic Volume (BP MOD) 111.95 ml 62.00-150.00 LV Diastolic Volume Index (BP MOD) 0.04 l/m2 0.03-0.07 LV Systolic Volume (BP MOD) 54.08 ml 21.00-61.00 LV Systolic Volume Index (BP MOD) 0.02 l/m2 0.01-0.03 LV EF (BP MOD) 52 % 52-72 LV Diastolic Length (4C) 8.79 cm LV Systolic Length (4C) 7.61 cm LV Stroke Volume (4C MOD) 70.25 ml Atria Name Value Normal LA Dimensions LA Dimension (MM) 4.38 cm 3.00-4.10 LA Volume (4C A-L) 60.85 ml RA Dimensions RA Area (4C) 15.55 cm2 <=18.00 Report Signatures
[2024-07-17] VITALS (14 sets, daily range): BP systolic 126–174; BP diastolic 66–92; PULSE 66–88; RESP 18–20; TEMP 36.2–36.9; O2SAT 96–100
[2024-07-17 04:40] LABS: Alanine Aminotransferase 45 U/L (6-50); Albumin Level 3.3 g/dL (3.5-5.1); Alkaline Phosphatase 127 U/L (38-126); Anion Gap 10 mmol/L (4-12); Aspartate Amino Transferase 55 U/L (17-59); Bilirubin,Total 0.5 mg/dL (0.2-1.3); Blood Urea Nitrogen 13 mg/dL (9-20); Carbon Dioxide 27 mmol/L (22-30); Chloride 100 mmol/L (98-107); Estimated CRCL calculation 130 ml/min; Estimated Glomerular Filt Rate > 60; Glucose 117 mg/dL (65-110); Hematocrit 34.6 % (42.0-52.0); Hemoglobin 11.1 g/dL (14.0-18.0); Mean Corpuscular HGB Conc 32.1 g/dl (32-36); Mean Corpuscular Hemoglobin 28.8 pg (26-34); Mean Corpuscular Volume 89.9 fl (80-100); Mean Platelet Volume 9.7 fl (7.4-10.4); Platelet Count Result 418 k/mm3 (150-375); Potassium 3.4 mmol/L (3.4-5.0); Red Blood Count 3.85 M/mm3 (4.6-6.20); Red Cell Distribution Width 14.7 % (11.5-14.5); Sodium 137 mmol/L (137-145); White Blood Count 6.8 K/mm3 (4.5-10.0)
[2024-07-17] MEDS: metroNIDAZOLE 500 MG TABLET PO ×3 (06:15→20:09)
--- NOTE | 2024-07-17 07:20 | P.PNCA_ITS ---
Progress Note: A&P Assessment and Plan (1) PAF (paroxysmal atrial fibrillation): Code(s): I48.0 - Paroxysmal atrial fibrillation Status: Acute Assessment and Plan: In Sinus rhythm. [id number] 2. On Eliquis. On Amiodarone drip. Rate is normal. On Amiodarone drip for more than 24 hours. Then on Amiodarone 400 mg BID for 1 week, then 200 mg BID. May d/c home from cardiology standpoint and f/u with me in 1 week. (2) DVT (deep venous thrombosis): Qualifiers: Affected thrombotic vein of extremity: femoral Chronicity: acute DVT location: lower extremity Laterality: right Qualified Code(s): I82.411 - Acute embolism and thrombosis of right femoral vein Code(s): I82.409 - Acute embolism and thrombosis of unspecified deep veins of unspecified lower extremity Status: Acute Assessment and Plan: On Eliquis dosing as per DVT/PE protocol. (3) Pulmonary embolism: Code(s): I26.99 - Other pulmonary embolism without acute cor pulmonale Status: Acute Assessment and Plan: On Eliquis. 07/17/24 Echo: 55-60%, grade III diastolic dysfunction (E/e' 13), mild LAE, mod MAC, trace TR, RVSP 45 mmHg. (4) Osteomyelitis of right foot: Code(s): M86.9 - Osteomyelitis, unspecified Status: Acute Assessment and Plan: On antibiotics. S/P I and D. (5) Dyslipidemia: Code(s): E78.5 - Hyperlipidemia, unspecified Status: Acute Assessment and Plan: Changed Simvastatin to Atorvastatin, due to being on Amiodarone now. (6) Edema of both legs: Code(s): R60.0 - Localized edema Status: Acute Assessment and Plan: On Furosemide 40 mg PO daily. (7) Hypertension: Code(s): I10 - Essential (primary) hypertension Status: Acute Assessment and Plan: Stable. Subjective Date/time seen: 07/17/24 07:20 Interval history: No chest pain or sob. Exam Const: General: cooperative, healthy appearing, comfortable and obese Nutritional Appearance: obese Orientation/consciousness: oriented to person, oriented to place and oriented to time Resp: Auscultation: clear to auscultation bilaterally, no crackles, no rales, no rhonchi and no wheezes Cardio: Rate: regular rate Rhythm: regular rhythm Heart sounds: no murmurs Neuro: General: oriented to person, oriented to place and oriented to time Extrem: Right lower extremity: edema Left lower extremity: edema Other: Mod right leg edema and foot is wrapped. Left leg with mild edema. Objective Data Vital Signs Vital Signs: Vital Signs - 24 hr 07/16/24 07:44 07/16/24 08:00 07/16/24 08:00 Temperature 98.3 F Pulse Rate 79 85 Respiratory Rate 16 Blood Pressure 130/84 Pulse Oximetry 99 Oxygen Delivery Room Air 07/16/24 10:34 07/16/24 11:10 07/16/24 11:20 Temperature 97.9 F Pulse Rate 76 Respiratory Rate 16 Blood Pressure 120/71 Pulse Oximetry 95 97 Oxygen Delivery Room Air Room Air 07/16/24 10:00 07/16/24 12:00 07/16/24 15:46 Temperature 97.5 F L Pulse Rate 73 99 78 Respiratory Rate 16 Blood Pressure 103/70 Pulse Oximetry 96 Oxygen Delivery 07/16/24 16:00 07/16/24 20:35 07/16/24 20:00 Temperature Pulse Rate 77 80 Respiratory Rate Blood Pressure Pulse Oximetry Oxygen Delivery Room Air 07/16/24 20:00 07/16/24 23:30 07/17/24 00:00 Temperature 97.8 F Pulse Rate 78 71 66 Respiratory Rate 16 Blood Pressure 105/63 Pulse Oximetry 99 Oxygen Delivery 07/17/24 04:00 Temperature Pulse Rate 72 Respiratory Rate Blood Pressure Pulse Oximetry Oxygen Delivery Intake/Output Intake/Output: Intake & Output 07/14/24 07/15/24 07/16/24 07/17/24 23:59 23:59 23:59 23:59 Intake Total 1466.5 1536 1000 Output Total 2950 3500 950 Balance -1483.5 -1964 50 Meds/Results Medications: Active Medications Generic Name Dose Route Start Last Admin Trade Name Freq PRN Reason Stop Dose Admin Acetaminophen 650 mg 07/13/24 23:05 Acetaminophen 325 Mg Tablet PO Q6H PRN Mild Pain (1-3) or Fever Amiodarone HCl 400 mg 07/15/24 09:00 07/16/24 17:51 Amiodarone Hcl 200 Mg Tablet PO 400 mg BID RASTA Administration Apixaban 10 mg 07/16/24 12:30 07/16/24 20:34 Apixaban 5 Mg Tablet PO 07/22/24 21:01 10 mg Q12HR RASTA Administration Apixaban 5 mg 07/23/24 09:00 Apixaban 5 Mg Tablet PO Q12HR RASTA Atorvastatin Calcium 10 mg 07/14/24 09:00 07/16/24 09:05 Atorvastatin 10 Mg Tablet PO 10 mg DAILY RASTA Administration Dextrose 12.5 gm 07/13/24 23:05 Dextrose 50% 25 Gm/50 Ml Syringe IV PUSH PRN PRN Hypoglycemia Protocol Empagliflozin 25 mg 07/14/24 09:00 07/16/24 09:06 Empagliflozin 25 Mg Tablet PO 25 mg DAILY RASTA Administration Furosemide 40 mg 07/15/24 09:00 07/16/24 09:06 Furosemide 40 Mg Tablet PO 40 mg DAILY RASTA Administration Glimepiride 1 mg 07/14/24 09:00 07/16/24 09:05 Glimepiride 1 Mg Tablet PO 1 mg QAM RASTA Administration Glucagon 1 mg 07/13/24 23:05 Glucagon For Inj 1 Mg Vial IM PRN PRN Hypoglycemia Protocol Glucose 15 gm 07/13/24 23:05 Glucose Oral Gel 15 Gm Of Glucse In 37.5 Gm Tube PO PRN PRN Hypoglycemia Protocol Dextrose 1,000 mls @ 100 mls/hr 07/13/24 23:05 Dextrose 5% 1,000 Ml IVPB PRN PRN Hypoglycemia Protocol Ceftriaxone Sodium 2 gm in 100 mls @ 200 mls/hr 07/15/24 21:00 07/16/24 20:35 Rocephin 2 Gm/Ns 100 Ml IVPB 200 mls/hr Q24H RASTA Administration Insulin Aspart 3 - 6 units 07/14/24 08:00 07/16/24 16:30 Insulin Aspart (*Bkc) 100 Units/Ml SUB-Q Not Given TIDWM [facility] Protocol Insulin Aspart 1 - 3 units 07/13/24 23:10 07/16/24 20:35 Insulin Aspart (*Bkc) 100 Units/Ml SUB-Q Not Given HS [facility] Protocol Metoprolol Tartrate 25 mg 07/15/24 09:00 07/16/24 20:35 Metoprolol Tartrate 25 Mg Tablet PO 25 mg Q12HR RASTA Administration Metronidazole 500 mg 07/16/24 13:45 07/17/24 06:15 Metronidazole 500 Mg Tablet PO 500 mg Q8HR RASTA Administration Oxycodone HCl 5 mg 07/15/24 16:51 Oxycodone Hcl (*Crx) 5 Mg Tab Ir PO Q4H PRN Pain Rated 7-10 Polyethylene Glycol 17 gm 07/16/24 09:00 07/16/24 09:06 Polyethylene Glycol 3350 17 Gm Powd.Pack PO 17 gm QAM RASTA Administration Radiology Results: ITS Impressions Venous Doppler Study 07/13/24 15:06 IMPRESSION: 1. Deep venous thrombosis at the right femoral and popliteal veins. Foot X-Ray 07/13/24 15:34 IMPRESSION: Osteomyelitis of distal fifth metatarsal bone and base of proximal phalanx of fifth digit, with adjacent soft tissue swelling, subcutaneous emphysema Chest X-Ray 07/13/24 15:38 IMPRESSION: Pulmonary vascular prominence and redistribution suggesting mild pulmonary venous hypertension Chest CTA 07/13/24 16:51 IMPRESSION: Bilateral subsegmental lower lobe pulmonary emboli Abdomen Ultrasound 07/14/24 15:36 IMPRESSION: Limited study; no apparent abnormality of the liver, pancreas or gallbladder Labs Labs: Laboratory Results - last 24 hr 07/16/24 07/16/24 07/16/24 07:43 10:21 11:17 WBC RBC Hgb Hct MCV MCH MCHC RDW Plt Count MPV APTT 67.3 H Sodium Potassium Chloride Carbon Dioxide Anion Gap BUN Creatinine Estim Creat Clear Calc Estimated GFR Glucose POC Capillary Glucose 128 H 165 H Calcium Total Bilirubin AST ALT Alkaline Phosphatase Total Protein Albumin 07/16/24 07/16/24 07/17/24 15:48 20:31 04:18 WBC 6.8 RBC 3.85 L Hgb 11.1 L Hct 34.6 L MCV 89.9 MCH 28.8 MCHC 32.1 RDW 14.7 H Plt Count 418 H MPV 9.7 APTT Sodium 137 Potassium 3.4 Chloride 100 Carbon Dioxide 27 Anion Gap 10 BUN 13 Creatinine 0.90 Estim Creat Clear Calc 130 Estimated GFR > 60 Glucose 117 H POC Capillary Glucose 157 H 136 H Calcium 8.0 L Total Bilirubin 0.5 AST 55 ALT 45 Alkaline Phosphatase 127 H Total Protein 8.0 Albumin 3.3 L
[2024-07-17 07:22] LABS: Glucose Point of Care 110 mg/dl (65-105)
[2024-07-17] MEDS: EMPAGLIFLOZIN 25 MG TABLET PO (08:20)
[2024-07-17] MEDS: APIXABAN 5 MG TABLET 10 MG PO ×2 (08:21→20:08)
[2024-07-17] MEDS: GLIMEPIRIDE 1 MG TABLET PO (08:21)
[2024-07-17] MEDS: ATORVASTATIN 10 MG TABLET PO (08:21)
[2024-07-17] MEDS: AMIODARONE HCL 200 MG TABLET 400 MG PO ×2 (08:21→17:25)
[2024-07-17] MEDS: FUROSEMIDE 40 MG TABLET PO (08:21)
[2024-07-17] MEDS: polyethylene glycoL 3350 17 GM POWD.PACK PO (08:22)
[2024-07-17] MEDS: METOPROLOL TARTRATE 25 MG TABLET PO ×2 (08:22→20:08)
--- NOTE | 2024-07-17 10:44 | VASCRN ---
Order received for: After review of the chart and the patient assessment, patient is not a candidate for the following reason(s): Patient has had previous positive blood cultures on this admission. The repeat set of cultures were obtained less than 24 hours ago. 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
[2024-07-17 11:15] LABS: Glucose Point of Care 164 mg/dl (65-105)
--- NOTE | 2024-07-17 11:16 | PM.PNGS ---
Progress Note: A&P Assessment and Plan (1) Diabetic ulcer of right foot: Code(s): E11.621 - Type 2 diabetes mellitus with foot ulcer; L97.519 - Non-pressure chronic ulcer of other part of right foot with unspecified severity Status: Acute Assessment and Plan: Patient has a diabetic right foot ulcer with abscess. He is postop day 2 following incision and drainage, as well as debridement of the right foot ulcer and abscess. There was evidence of osteomyelitis of the fifth metatarsal and he will require 6 weeks of IV antibiotics. PICC line ordered as well, but this was deferred due to his positive blood cultures. Okay to continue IV Rocephin with oral Flagyl. Wound and tissue cultures pending. Continue with daily iodoform packing dressing changes. Elevate the right lower extremity. Continue PT. (2) Osteomyelitis of right foot: Code(s): M86.9 - Osteomyelitis, unspecified Status: Acute Assessment and Plan: Destruction of the shaft of the fifth metatarsal with likely osteomyelitis. Portion of the soft infected bone was sent to microbiology for tissue culture, which is pending. He will need IV antibiotics for 6 weeks and a PICC line. He can have home health for the first week or so to educate the patient and family on home IV antibiotics and then he can complete the rest of the course on his own. (3) Atrial fibrillation with rapid ventricular response: Code(s): I48.91 - Unspecified atrial fibrillation Status: Acute Assessment and Plan: Transitioned to oral anticoagulation. Managed by Cardiology and hospitalist service. (4) Bilateral pulmonary embolism: Code(s): I26.99 - Other pulmonary embolism without acute cor pulmonale Status: Acute Assessment and Plan: Currently on Eliquis (5) Deep vein thrombosis of right lower extremity: Code(s): I82.401 - Acute embolism and thrombosis of unspecified deep veins of right lower extremity Status: Acute Assessment and Plan: Will need oral anticoagulation for at least 6 months. Plan I have discussed the patient's case and plan of care with Dr. Montgomery. Subjective Subjective Date/Time Seen: 07/17/24 11:16 Post Op day: 2 (Incision and drainage right foot abscess and debridement of right foot wound) Patient reports: no new complaints and afebrile Interval history: Denies any pain in his foot. No acute events overnight. He has been switched to oral anticoagulation. Care coordination has spoke with him about home IV antibiotics. PICC line was deferred yesterday due to positive blood cultures. Repeat blood cultures drawn yesterday. Review of Systems Review of Systems: All systems reviewed & are unremarkable except as noted in HPI and below Exam Const: General: comfortable and no acute distress Skin: Other: Right foot dressing removed. He has a 4 cm wound on the lateral side of the foot near the fifth metatarsal head with bone exposed, depth 1.3 cm. Edema continues to improve. No erythema or purulent drainage. The wound was repacked with quarter-inch iodoform gauze and covered with a gauze dressing and Americo wraps. Objective Data Vital Signs Vital Signs: Vital Signs - 24 hr 07/16/24 11:20 07/16/24 12:00 07/16/24 15:46 Temperature 97.9 F 97.5 F L Pulse Rate 76 99 78 Respiratory Rate 16 16 Blood Pressure 120/71 103/70 Pulse Oximetry 97 96 Oxygen Delivery 07/16/24 16:00 07/16/24 20:35 07/16/24 20:00 Temperature Pulse Rate 77 80 Respiratory Rate Blood Pressure Pulse Oximetry Oxygen Delivery Room Air 07/16/24 20:00 07/16/24 23:30 07/17/24 00:00 Temperature 97.8 F Pulse Rate 78 71 66 Respiratory Rate 16 Blood Pressure 105/63 Pulse Oximetry 99 Oxygen Delivery 07/17/24 04:00 07/17/24 07:30 07/17/24 08:21 Temperature 97.7 F Pulse Rate 72 75 87 Respiratory Rate 20 Blood Pressure 139/66 Pulse Oximetry 100 Oxygen Delivery 07/17/24 08:22 07/17/24 08:00 07/17/24 08:00 Temperature Pulse Rate 87 81 Respiratory Rate Blood Pressure Pulse Oximetry Oxygen Delivery Room Air Intake/Output Intake/Output: Intake & Output 07/14/24 07/15/24 07/16/24 07/17/24 23:59 23:59 23:59 23:59 Intake Total 1466.5 1536 1240 Output Total 2950 3500 1450 Balance -1483.5 -1964 -210 Meds/Results Medications: Active Medications Generic Name Dose Route Start Last Admin Trade Name Freq PRN Reason Stop Dose Admin Acetaminophen 650 mg 07/13/24 23:05 Acetaminophen 325 Mg Tablet PO Q6H PRN Mild Pain (1-3) or Fever Amiodarone HCl 400 mg 07/15/24 09:00 07/17/24 08:21 Amiodarone Hcl 200 Mg Tablet PO 400 mg BID RASTA Administration Apixaban 10 mg 07/16/24 12:30 07/17/24 08:21 Apixaban 5 Mg Tablet PO 07/22/24 21:01 10 mg Q12HR RASTA Administration Apixaban 5 mg 07/23/24 09:00 Apixaban 5 Mg Tablet PO Q12HR RASTA Atorvastatin Calcium 10 mg 07/14/24 09:00 07/17/24 08:21 Atorvastatin 10 Mg Tablet PO 10 mg DAILY RASTA Administration Dextrose 12.5 gm 07/13/24 23:05 Dextrose 50% 25 Gm/50 Ml Syringe IV PUSH PRN PRN Hypoglycemia Protocol Empagliflozin 25 mg 07/14/24 09:00 07/17/24 08:20 Empagliflozin 25 Mg Tablet PO 25 mg DAILY RASTA Administration Furosemide 40 mg 07/15/24 09:00 07/17/24 08:21 Furosemide 40 Mg Tablet PO 40 mg DAILY RASTA Administration Glimepiride 1 mg 07/14/24 09:00 07/17/24 08:21 Glimepiride 1 Mg Tablet PO 1 mg QAM RASTA Administration Glucagon 1 mg 07/13/24 23:05 Glucagon For Inj 1 Mg Vial IM PRN PRN Hypoglycemia Protocol Glucose 15 gm 07/13/24 23:05 Glucose Oral Gel 15 Gm Of Glucse In 37.5 Gm Tube PO PRN PRN Hypoglycemia Protocol Dextrose 1,000 mls @ 100 mls/hr 07/13/24 23:05 Dextrose 5% 1,000 Ml IVPB PRN PRN Hypoglycemia Protocol Ceftriaxone Sodium 2 gm in 100 mls @ 200 mls/hr 07/15/24 21:00 07/16/24 20:35 Rocephin 2 Gm/Ns 100 Ml IVPB 200 mls/hr Q24H RASTA Administration Insulin Aspart 3 - 6 units 07/14/24 08:00 07/17/24 08:19 Insulin Aspart (*Bkc) 100 Units/Ml SUB-Q Not Given TIDWM [facility]STA Protocol Insulin Aspart 1 - 3 units 07/13/24 23:10 07/16/24 20:35 Insulin Aspart (*Bkc) 100 Units/Ml SUB-Q Not Given HS RASTA Protocol Metoprolol Tartrate 25 mg 07/15/24 09:00 07/17/24 08:22 Metoprolol Tartrate 25 Mg Tablet PO 25 mg Q12HR RASTA Administration Metronidazole 500 mg 07/16/24 13:45 07/17/24 06:15 Metronidazole 500 Mg Tablet PO 500 mg Q8HR RASTA Administration Oxycodone HCl 5 mg 07/15/24 16:51 Oxycodone Hcl (*Crx) 5 Mg Tab Ir PO Q4H PRN Pain Rated 7-10 Polyethylene Glycol 17 gm 07/16/24 09:00 07/17/24 08:22 Polyethylene Glycol 3350 17 Gm Powd.Pack PO 17 gm QAM RASTA Administration Radiology Results: ITS Impressions Venous Doppler Study 07/13/24 15:06 IMPRESSION: 1. Deep venous thrombosis at the right femoral and popliteal veins. Foot X-Ray 07/13/24 15:34 IMPRESSION: Osteomyelitis of distal fifth metatarsal bone and base of proximal phalanx of fifth digit, with adjacent soft tissue swelling, subcutaneous emphysema Chest X-Ray 07/13/24 15:38 IMPRESSION: Pulmonary vascular prominence and redistribution suggesting mild pulmonary venous hypertension Chest CTA 07/13/24 16:51 IMPRESSION: Bilateral subsegmental lower lobe pulmonary emboli Abdomen Ultrasound 07/14/24 15:36 IMPRESSION: Limited study; no apparent abnormality of the liver, pancreas or gallbladder Labs Labs: Laboratory Results - last 24 hr 07/16/24 07/16/24 07/16/24 11:17 15:48 20:31 WBC RBC Hgb Hct MCV MCH MCHC RDW Plt Count MPV Sodium Potassium Chloride Carbon Dioxide Anion Gap BUN Creatinine Estim Creat Clear Calc Estimated GFR Glucose POC Capillary Glucose 165 H 157 H 136 H Calcium Total Bilirubin AST ALT Alkaline Phosphatase Total Protein Albumin 07/17/24 07/17/24 07/17/24 04:18 07:16 11:12 WBC 6.8 RBC 3.85 L Hgb 11.1 L Hct 34.6 L MCV 89.9 MCH 28.8 MCHC 32.1 RDW 14.7 H Plt Count 418 H MPV 9.7 Sodium 137 Potassium 3.4 Chloride 100 Carbon Dioxide 27 Anion Gap 10 BUN 13 Creatinine 0.90 Estim Creat Clear Calc 130 Estimated GFR > 60 Glucose 117 H POC Capillary Glucose 110 H 164 H Calcium 8.0 L Total Bilirubin 0.5 AST 55 ALT 45 Alkaline Phosphatase 127 H Total Protein 8.0 Albumin 3.3 L
[2024-07-17 15:44] LABS: Glucose Point of Care 132 mg/dl (65-105)
--- NOTE | 2024-07-17 15:48 | P.PNIM_ITS ---
Progress Note: A&P Assessment and Plan (1) Sepsis: Code(s): A41.9 - Sepsis, unspecified organism Status: Acute (2) Osteomyelitis of right foot: Code(s): M86.9 - Osteomyelitis, unspecified Status: Acute (3) Diabetic ulcer of right foot: Code(s): E11.621 - Type 2 diabetes mellitus with foot ulcer; L97.519 - Non-pressure chronic ulcer of other part of right foot with unspecified severity Status: Acute (4) Diabetic infection of right foot: Code(s): E11.628 - Type 2 diabetes mellitus with other skin complications; L08.9 - Local infection of the skin and subcutaneous tissue, unspecified Status: Acute (5) Deep vein thrombosis of right lower extremity: Code(s): I82.401 - Acute embolism and thrombosis of unspecified deep veins of right lower extremity Status: Acute (6) Bilateral pulmonary embolism: Code(s): I26.99 - Other pulmonary embolism without acute cor pulmonale Status: Acute (7) Atrial fibrillation with rapid ventricular response: Code(s): I48.91 - Unspecified atrial fibrillation Status: Acute (8) Elevated LFTs: Code(s): R79.89 - Other specified abnormal findings of blood chemistry Status: Acute (9) Hypertension: Code(s): I10 - Essential (primary) hypertension Status: Acute (10) Type 2 diabetes mellitus: Code(s): E11.9 - Type 2 diabetes mellitus without complications Status: Acute (11) Obstructive sleep apnea: Code(s): G47.33 - Obstructive sleep apnea (adult) (pediatric) Status: Acute Plan Diabetic right foot ulcer with osteomyelitis Osteomyelitis of distal fifth metatarsal bone and base of proximal phalanx of fifth digit, with adjacent soft tissue swelling, subcutaneous emphysema Blood culture positive GBS narrowed abx to Rocephin per blood culture (07/15/2024) 07/15: Incision and drainage of right foot diabetic wound abscess with excisional debridement Clinical evidence of osteomyelitis of the fifth metatarsal and he will require 6 weeks of IV antibiotics PICC line ordered as well, but this was deferred due to his positive blood cultures Gen surgery on board Group B streptococcemia Blood culture positive for GBS Antibiotics whittled down on Rocephin pending tissue culture PE/DVT CT chest and Venous doppler showed DVT RLE s/p Heparin infusion Started Eliquis 10 mg p.o. b.i.d. for 7 days and continues with Eliquis 5 mg p.o. b.i.d. ECHO shows left ventricular systolic function 55-60% Afib RVR, new onset [id number] 2 s/p Amiodarone infusion, now on Amiodarone 400mg bid, transition to 200mg bid after 7 days ECHO completed Started Eliquis 10 mg p.o. b.i.d. for 7 days (07/16-07/22), and continues with Eliquis 5 mg p.o. b.i.d. DM2 SSi with accucheks HTN titrate home meds with clinical course RADHA on CPAP DVT prophylaxis on heparin infusion Subjective Date/time seen: 07/17/24 15:48 Interval history: Patient wound culture is positive Group B Strepcocci. Repeat preliminary blood culture is negative. Review of Systems Review of Systems: 12 systems were reviewed and are negativ e except for as per HPI. Exam Narrative: General: Moderately ill-appearing male in the semi-Bedoya position in bed. Weight: 172.6 kg. BMI: 51.6. HEENT: Wearing corrective lenses. PERRL, EOMI. Sclera anicteric. Tacky mucous membranes. Oropharynx is crowded. Neck: Supple. Exam limited due to neck circumference. No obvious JVD or lymphadenopathy. Respiratory: Respirations are nonlabored and he is speaking in full sentences. Lungs are clear to auscultation. Cardiovascular: Irregularly irregular rate and rhythm. Gastrointestinal: Abdomen is soft, morbidly obese, nontender, and nondistended with positive bowel sounds. Skin: Warm and dry. There is an ulcerative lesion on the lateral plantar aspect of the right foot draining malodorous, purulent fluid with surrounding warmth and erythema. No obvious crepitus noted. Extremities: No cyanosis or clubbing. Legs are large. There is pitting edema of the right lower extremity. No obvious palpable knots or cords. Neurological: Alert. Cranial nerves 2-12 are grossly intact. No gross focal deficits to casual conversation. Psychiatric: Pleasant and cooperative with normal mood and affect. Judgment and insight intact. Objective Data Vital Signs Vital Signs: Vital Signs - 24 hr 07/16/24 16:00 07/16/24 20:35 07/16/24 20:00 Temperature Pulse Rate 77 80 Respiratory Rate Blood Pressure Pulse Oximetry Oxygen Delivery Room Air 07/16/24 20:00 07/16/24 23:30 07/17/24 00:00 Temperature 97.8 F Pulse Rate 78 71 66 Respiratory Rate 16 Blood Pressure 105/63 Pulse Oximetry 99 Oxygen Delivery 07/17/24 04:00 07/17/24 07:30 07/17/24 08:21 Temperature 97.7 F Pulse Rate 72 75 87 Respiratory Rate 20 Blood Pressure 139/66 Pulse Oximetry 100 Oxygen Delivery 07/17/24 08:22 07/17/24 08:00 07/17/24 08:00 Temperature Pulse Rate 87 81 Respiratory Rate Blood Pressure Pulse Oximetry Oxygen Delivery Room Air 07/17/24 11:46 07/17/24 12:00 Temperature 98.4 F Pulse Rate 78 77 Respiratory Rate 18 Blood Pressure 174/87 H Pulse Oximetry 97 Oxygen Delivery Intake/Output Intake/Output: Intake & Output 07/14/24 07/15/24 07/16/24 07/17/24 23:59 23:59 23:59 23:59 Intake Total 1466.5 1536 1240 Output Total 2950 3500 1450 Balance -1483.5 -1964 -210 Meds/Results Medications: Active Medications Generic Name Dose Route Start Last Admin Trade Name Freq PRN Reason Stop Dose Admin Acetaminophen 650 mg 07/13/24 23:05 Acetaminophen 325 Mg Tablet PO Q6H PRN Mild Pain (1-3) or Fever Amiodarone HCl 400 mg 07/15/24 09:00 07/17/24 08:21 Amiodarone Hcl 200 Mg Tablet PO 400 mg BID RASTA Administration Apixaban 10 mg 07/16/24 12:30 07/17/24 08:21 Apixaban 5 Mg Tablet PO 07/22/24 21:01 10 mg Q12HR RASTA Administration Apixaban 5 mg 07/23/24 09:00 Apixaban 5 Mg Tablet PO Q12HR RASTA Atorvastatin Calcium 10 mg 07/14/24 09:00 07/17/24 08:21 Atorvastatin 10 Mg Tablet PO 10 mg DAILY RASTA Administration Dextrose 12.5 gm 07/13/24 23:05 Dextrose 50% 25 Gm/50 Ml Syringe IV PUSH PRN PRN Hypoglycemia Protocol Empagliflozin 25 mg 07/14/24 09:00 07/17/24 08:20 Empagliflozin 25 Mg Tablet PO 25 mg DAILY RASTA Administration Furosemide 40 mg 07/15/24 09:00 07/17/24 08:21 Furosemide 40 Mg Tablet PO 40 mg DAILY RASTA Administration Glimepiride 1 mg 07/14/24 09:00 07/17/24 08:21 Glimepiride 1 Mg Tablet PO 1 mg QAM RASTA Administration Glucagon 1 mg 07/13/24 23:05 Glucagon For Inj 1 Mg Vial IM PRN PRN Hypoglycemia Protocol Glucose 15 gm 07/13/24 23:05 Glucose Oral Gel 15 Gm Of Glucse In 37.5 Gm Tube PO PRN PRN Hypoglycemia Protocol Dextrose 1,000 mls @ 100 mls/hr 07/13/24 23:05 Dextrose 5% 1,000 Ml IVPB PRN PRN Hypoglycemia Protocol Ceftriaxone Sodium 2 gm in 100 mls @ 200 mls/hr 07/15/24 21:00 07/16/24 20:35 Rocephin 2 Gm/Ns 100 Ml IVPB 200 mls/hr Q24H RASTA Administration Insulin Aspart 3 - 6 units 07/14/24 08:00 07/17/24 11:18 Insulin Aspart (*Bkc) 100 Units/Ml SUB-Q Not Given TIDWM [facility] Protocol Insulin Aspart 1 - 3 units 07/13/24 23:10 07/16/24 20:35 Insulin Aspart (*Bkc) 100 Units/Ml SUB-Q Not Given HS [facility] Protocol Metoprolol Tartrate 25 mg 07/15/24 09:00 07/17/24 08:22 Metoprolol Tartrate 25 Mg Tablet PO 25 mg Q12HR RASTA Administration Metronidazole 500 mg 07/16/24 13:45 07/17/24 13:14 Metronidazole 500 Mg Tablet PO 500 mg Q8HR RASTA Administration Oxycodone HCl 5 mg 07/15/24 16:51 Oxycodone Hcl (*Crx) 5 Mg Tab Ir PO Q4H PRN Pain Rated 7-10 Polyethylene Glycol 17 gm 07/16/24 09:00 07/17/24 08:22 Polyethylene Glycol 3350 17 Gm Powd.Pack PO 17 gm QAM RASTA Administration Radiology Results: ITS Impressions Venous Doppler Study 07/13/24 15:06 IMPRESSION: 1. Deep venous thrombosis at the right femoral and popliteal veins. Foot X-Ray 07/13/24 15:34 IMPRESSION: Osteomyelitis of distal fifth metatarsal bone and base of proximal phalanx of fifth digit, with adjacent soft tissue swelling, subcutaneous emphysema Chest X-Ray 07/13/24 15:38 IMPRESSION: Pulmonary vascular prominence and redistribution suggesting mild pulmonary venous hypertension Chest CTA 07/13/24 16:51 IMPRESSION: Bilateral subsegmental lower lobe pulmonary emboli Abdomen Ultrasound 07/14/24 15:36 IMPRESSION: Limited study; no apparent abnormality of the liver, pancreas or gallbladder Ankle Brachial Index 07/17/24 15:25 IMPRESSION: 1. No significant arterial occlusive disease. Labs Labs: Laboratory Results - last 24 hr 07/16/24 07/16/24 07/17/24 15:48 20:31 04:18 WBC 6.8 RBC 3.85 L Hgb 11.1 L Hct 34.6 L MCV 89.9 MCH 28.8 MCHC 32.1 RDW 14.7 H Plt Count 418 H MPV 9.7 Sodium 137 Potassium 3.4 Chloride 100 Carbon Dioxide 27 Anion Gap 10 BUN 13 Creatinine 0.90 Estim Creat Clear Calc 130 Estimated GFR > 60 Glucose 117 H POC Capillary Glucose 157 H 136 H Calcium 8.0 L Total Bilirubin 0.5 AST 55 ALT 45 Alkaline Phosphatase 127 H Total Protein 8.0 Albumin 3.3 L 07/17/24 07/17/24 07/17/24 07:16 11:12 15:28 WBC RBC Hgb Hct MCV MCH MCHC RDW Plt Count MPV Sodium Potassium Chloride Carbon Dioxide Anion Gap BUN Creatinine Estim Creat Clear Calc Estimated GFR Glucose POC Capillary Glucose 110 H 164 H 132 H Calcium Total Bilirubin AST ALT Alkaline Phosphatase Total Protein Albumin Quality VTE Prophylaxis VTE prophylaxis: pharmacologic ordered (currently on a heparin drip for DVT and PE) Hospitalist [facility] Advance Care Plan I have confirmed that the patient's Advanced Care Plan is present, code status is documented, or surrogate decision maker is listed in patient medical record.: Yes Medication Reconciliation I have utilized all available resources to obtain, update and review the patients current medications (includes all prescriptions, OTC, herbals, cannabis, and nutritional supplements).: Yes
--- NOTE | 2024-07-17 18:12 | PC.NURSE ---
This patient, Benny Ramirez, was transferred to [facility] on 07/17/24 at 1753. Personal belongings sent with patient. Report given to Arianna. Appropriate documentation sent with patient.
[2024-07-17] MEDS: cefTRIAXone 2 GM/NS 100 ML 2 GM/100 ML BAG IVPB (20:09)
[2024-07-17 20:37] LABS: Glucose Point of Care 135 mg/dl (65-105)
[2024-07-18] VITALS (13 sets, daily range): BP systolic 120–131; BP diastolic 61–82; PULSE 72–80; RESP 18; TEMP 36.2–36.3; O2SAT 96–97
[2024-07-18] MEDS: metroNIDAZOLE 500 MG TABLET PO ×3 (05:40→19:52)
[2024-07-18 06:03] LABS: Hematocrit 37.6 % (42.0-52.0); Hemoglobin 11.9 g/dL (14.0-18.0); Mean Corpuscular HGB Conc 31.6 g/dl (32-36); Mean Corpuscular Hemoglobin 29.1 pg (26-34); Mean Corpuscular Volume 91.9 fl (80-100); Mean Platelet Volume 10.1 fl (7.4-10.4); Platelet Count Result 435 k/mm3 (150-375); Red Blood Count 4.09 M/mm3 (4.6-6.20); Red Cell Distribution Width 14.9 % (11.5-14.5); White Blood Count 8.1 K/mm3 (4.5-10.0)
[2024-07-18 06:12] LABS: Alanine Aminotransferase 43 U/L (6-50); Albumin Level 3.7 g/dL (3.5-5.1); Alkaline Phosphatase 136 U/L (38-126); Anion Gap 8 mmol/L (4-12); Aspartate Amino Transferase 50 U/L (17-59); Bilirubin,Total 0.7 mg/dL (0.2-1.3); Blood Urea Nitrogen 11 mg/dL (9-20); Calcium 8.4 mg/dL (8.4-10.2); Carbon Dioxide 28 mmol/L (22-30); Chloride 100 mmol/L (98-107); Estimated CRCL calculation 145 ml/min; Estimated Glomerular Filt Rate > 60; Glucose 114 mg/dL (65-110); Potassium 3.6 mmol/L (3.4-5.0); Sodium 136 mmol/L (137-145)
[2024-07-18] MEDS: FUROSEMIDE 40 MG TABLET PO (08:06)
[2024-07-18] MEDS: GLIMEPIRIDE 1 MG TABLET PO (08:06)
[2024-07-18] MEDS: AMIODARONE HCL 200 MG TABLET 400 MG PO ×2 (08:06→17:25)
[2024-07-18] MEDS: EMPAGLIFLOZIN 25 MG TABLET PO (08:07)
[2024-07-18] MEDS: ATORVASTATIN 10 MG TABLET PO (08:07)
[2024-07-18] MEDS: APIXABAN 5 MG TABLET 10 MG PO ×2 (08:07→19:52)
[2024-07-18] MEDS: METOPROLOL TARTRATE 25 MG TABLET PO ×2 (08:07→19:52)
[2024-07-18 08:20] LABS: Glucose Point of Care 116 mg/dl (65-105)
[2024-07-18 11:47] LABS: Glucose Point of Care 164 mg/dl (65-105)
[2024-07-18] MEDS: ACETAMINOPHEN 325 MG TABLET 650 MG PO (13:07)
--- NOTE | 2024-07-18 13:25 | P.PNGS_ITS ---
Progress Note: A&P Assessment and Plan (1) Diabetic ulcer of right foot: Code(s): E11.621 - Type 2 diabetes mellitus with foot ulcer; L97.519 - Non-pressure chronic ulcer of other part of right foot with unspecified severity Status: Acute Assessment and Plan: Patient has a diabetic right foot ulcer with abscess. He is postop day 2 following incision and drainage, as well as debridement of the right foot ulcer and abscess. There was evidence of osteomyelitis of the fifth metatarsal and he will require 6 weeks of IV antibiotics. Tissue culture showing growth of Bacteroides vulgatus and group B strep. Wound culture showing growth of group B strep. Continue IV Rocephin with oral Flagyl. Plan for PICC line to be placed this afternoon since his repeat blood cultures have been negative to date. Continue with daily iodoform packing dressing changes. I educated his mother who will help with dressing changes on the days that home health will not be available. I have asked the wound care nurses to schedule him for follow-up in [facility] with Dr. Montgomery in the next 1-2 weeks. He should continue to use his walking boot with transfers and minimal ambulation. Hopefully the patient can discharge home tomorrow if the home antibiotics and home health are set up. (2) Osteomyelitis of right foot: Code(s): M86.9 - Osteomyelitis, unspecified Status: Acute Assessment and Plan: Destruction of the shaft of the fifth metatarsal with osteomyelitis. He will need 6 weeks of IV antibiotics. PICC line will be placed this afternoon. Hopefully he can be discharged tomorrow if all the discharge planning has been approved. (3) Atrial fibrillation with rapid ventricular response: Code(s): I48.91 - Unspecified atrial fibrillation Status: Acute (4) Bilateral pulmonary embolism: Code(s): I26.99 - Other pulmonary embolism without acute cor pulmonale Status: Acute Assessment and Plan: Currently on Eliquis (5) Deep vein thrombosis of right lower extremity: Code(s): I82.401 - Acute embolism and thrombosis of unspecified deep veins of right lower extremity Status: Acute Assessment and Plan: Will need oral anticoagulation for at least 6 months. Plan I have discussed the patient's case and plan of care with Dr. Montgomery. Subjective Subjective Date/Time Seen: 07/18/24 13:25 Post Op day: 3 (Incision and drainage right foot abscess and debridement of right foot wound) Patient reports: feels better, tolerating a regular diet and afebrile Interval history: No new complaints overnight. His mother is at the bedside and is the 1 who is going to help him with dressing changes. I was able to educate her on dressing changes while I did the dressing change today. Exam Const: General: comfortable and no acute distress Orientation/consciousness: patient oriented x3 Skin: Other: Right foot dressing removed. He has a 4 cm wound on the lateral side of the foot near the fifth metatarsal head with bone exposed, depth 1.3 cm. Edema continues to improve. No erythema or purulent drainage. The wound was repacked with quarter-inch iodoform gauze and covered with a gauze dressing and Americo wraps. Objective Data Vital Signs Vital Signs: Vital Signs - 24 hr 07/17/24 15:58 07/17/24 16:00 07/17/24 17:25 Temperature 98.3 F Pulse Rate 76 73 88 Respiratory Rate 20 Blood Pressure 126/75 Pulse Oximetry 98 Oxygen Delivery 07/17/24 20:08 07/17/24 20:00 07/17/24 20:00 Temperature Pulse Rate 79 79 Respiratory Rate Blood Pressure Pulse Oximetry Oxygen Delivery Room Air 07/17/24 21:53 07/18/24 00:00 07/18/24 04:00 Temperature 97.2 F L Pulse Rate 77 72 80 Respiratory Rate 18 Blood Pressure 142/92 H Pulse Oximetry 96 Oxygen Delivery 07/18/24 06:00 07/18/24 08:06 07/18/24 08:07 Temperature 97.4 F L Pulse Rate 80 80 80 Respiratory Rate 18 Blood Pressure 120/61 Pulse Oximetry 97 Oxygen Delivery 07/18/24 08:00 07/18/24 12:00 Temperature Pulse Rate 76 80 Respiratory Rate Blood Pressure Pulse Oximetry Oxygen Delivery Intake/Output Intake/Output: Intake & Output 07/15/24 07/16/24 07/17/24 07/18/24 23:59 23:59 23:59 23:59 Intake Total 1466.5 1636 2420 1030 Output Total 2950 3500 5200 2775 [facility] -1483.5 -1864 -2780 -1745 Meds/Results Medications: Active Medications Generic Name Dose Route Start Last Admin Trade Name Freq PRN Reason Stop Dose Admin Acetaminophen 650 mg 07/13/24 23:05 07/18/24 13:07 Acetaminophen 325 Mg Tablet PO 650 mg Q6H PRN Administration Mild Pain (1-3) or Fever Amiodarone HCl 400 mg 07/15/24 09:00 07/18/24 08:06 Amiodarone Hcl 200 Mg Tablet PO 400 mg BID RASTA Administration Apixaban 10 mg 07/16/24 12:30 07/18/24 08:07 Apixaban 5 Mg Tablet PO 07/22/24 21:01 10 mg Q12HR RASTA Administration Apixaban 5 mg 07/23/24 09:00 Apixaban 5 Mg Tablet PO Q12HR RASTA Atorvastatin Calcium 10 mg 07/14/24 09:00 07/18/24 08:07 Atorvastatin 10 Mg Tablet PO 10 mg DAILY RASTA Administration Dextrose 12.5 gm 07/13/24 23:05 Dextrose 50% 25 Gm/50 Ml Syringe IV PUSH PRN PRN Hypoglycemia Protocol Empagliflozin 25 mg 07/14/24 09:00 07/18/24 08:07 Empagliflozin 25 Mg Tablet PO 25 mg DAILY RASTA Administration Furosemide 40 mg 07/15/24 09:00 07/18/24 08:06 Furosemide 40 Mg Tablet PO 40 mg DAILY RASTA Administration Glimepiride 1 mg 07/14/24 09:00 07/18/24 08:06 Glimepiride 1 Mg Tablet PO 1 mg QAM RASTA Administration Glucagon 1 mg 07/13/24 23:05 Glucagon For Inj 1 Mg Vial IM PRN PRN Hypoglycemia Protocol Glucose 15 gm 07/13/24 23:05 Glucose Oral Gel 15 Gm Of Glucse In 37.5 Gm Tube PO PRN PRN Hypoglycemia Protocol Dextrose 1,000 mls @ 100 mls/hr 07/13/24 23:05 Dextrose 5% 1,000 Ml IVPB PRN PRN Hypoglycemia Protocol Ceftriaxone Sodium 2 gm in 100 mls @ 200 mls/hr 07/15/24 21:00 07/17/24 20:39 Rocephin 2 Gm/Ns 100 Ml IVPB 08/26/24 23:59 Infused Q24H RASTA Infusion Insulin Aspart 3 - 6 units 07/14/24 08:00 07/18/24 11:48 Insulin Aspart (*Bkc) 100 Units/Ml SUB-Q Not Given TIDWM [facility] Protocol Insulin Aspart 1 - 3 units 07/13/24 23:10 07/17/24 20:00 Insulin Aspart (*Bkc) 100 Units/Ml SUB-Q Not Given HS [facility] Protocol Metoprolol Tartrate 25 mg 07/15/24 09:00 07/18/24 08:07 Metoprolol Tartrate 25 Mg Tablet PO 25 mg Q12HR RASTA Administration Metronidazole 500 mg 07/16/24 13:45 07/18/24 13:07 Metronidazole 500 Mg Tablet PO 08/26/24 22:01 500 mg Q8HR RASTA Administration Oxycodone HCl 5 mg 07/15/24 16:51 Oxycodone Hcl (*Crx) 5 Mg Tab Ir PO Q4H PRN Pain Rated 7-10 Polyethylene Glycol 17 gm 07/16/24 09:00 07/18/24 08:07 Polyethylene Glycol 3350 17 Gm Powd.Pack [facility] [place] [facility] Results: ITS Impressions Venous Doppler Study 07/13/24 15:06 IMPRESSION: 1. Deep venous thrombosis at the right femoral and popliteal veins. Foot X-Ray 07/13/24 15:34 IMPRESSION: Osteomyelitis of distal fifth metatarsal bone and base of proximal phalanx of fifth digit, with adjacent soft tissue swelling, subcutaneous emphysema Chest X-Ray 07/13/24 15:38 IMPRESSION: Pulmonary vascular prominence and redistribution suggesting mild pulmonary venous hypertension Chest CTA 07/13/24 16:51 IMPRESSION: Bilateral subsegmental lower lobe pulmonary emboli Abdomen Ultrasound 07/14/24 15:36 IMPRESSION: Limited study; no apparent abnormality of the liver, pancreas or gallbladder Ankle Brachial Index 07/17/24 15:25 IMPRESSION: 1. No significant arterial occlusive disease. Labs Labs: Laboratory Results - last 24 hr 07/17/24 07/17/24 07/18/24 15:28 20:00 05:23 WBC 8.1 RBC 4.09 L Hgb 11.9 L Hct 37.6 L MCV 91.9 MCH 29.1 MCHC 31.6 L RDW 14.9 H Plt Count 435 H MPV 10.1 Sodium 136 L Potassium 3.6 Chloride 100 Carbon Dioxide 28 Anion Gap 8 BUN 11 Creatinine 0.80 Estim Creat Clear Calc 145 Estimated GFR > 60 Glucose 114 H POC Capillary Glucose 132 H 135 H Calcium 8.4 Total Bilirubin 0.7 AST 50 ALT 43 Alkaline Phosphatase 136 H Total Protein 8.0 Albumin 3.7 07/18/24 07/18/24 08:16 11:35 WBC RBC Hgb Hct MCV MCH MCHC RDW Plt Count MPV Sodium Potassium Chloride Carbon Dioxide Anion Gap BUN Creatinine Estim Creat Clear Calc Estimated GFR Glucose POC Capillary Glucose 116 H 164 H Calcium Total Bilirubin AST ALT Alkaline Phosphatase Total Protein Albumin
--- NOTE | 2024-07-18 15:55 | PM.IMPN ---
Progress Note: A&P Assessment and Plan (1) Sepsis: Code(s): A41.9 - Sepsis, unspecified organism Status: Acute (2) Osteomyelitis of right foot: Code(s): M86.9 - Osteomyelitis, unspecified Status: Acute (3) Diabetic ulcer of right foot: Code(s): E11.621 - Type 2 diabetes mellitus with foot ulcer; L97.519 - Non-pressure chronic ulcer of other part of right foot with unspecified severity Status: Acute (4) Diabetic infection of right foot: Code(s): E11.628 - Type 2 diabetes mellitus with other skin complications; L08.9 - Local infection of the skin and subcutaneous tissue, unspecified Status: Acute (5) Deep vein thrombosis of right lower extremity: Code(s): I82.401 - Acute embolism and thrombosis of unspecified deep veins of right lower extremity Status: Acute (6) Bilateral pulmonary embolism: Code(s): I26.99 - Other pulmonary embolism without acute cor pulmonale Status: Acute (7) Atrial fibrillation with rapid ventricular response: Code(s): I48.91 - Unspecified atrial fibrillation Status: Acute (8) Elevated LFTs: Code(s): R79.89 - Other specified abnormal findings of blood chemistry Status: Acute (9) Hypertension: Code(s): I10 - Essential (primary) hypertension Status: Acute (10) Type 2 diabetes mellitus: Code(s): E11.9 - Type 2 diabetes mellitus without complications Status: Acute (11) Obstructive sleep apnea: Code(s): G47.33 - Obstructive sleep apnea (adult) (pediatric) Status: Acute Plan Diabetic right foot ulcer with osteomyelitis Osteomyelitis of distal fifth metatarsal bone and base of proximal phalanx of fifth digit, with adjacent soft tissue swelling, subcutaneous emphysema Blood culture positive GBS narrowed abx to Rocephin per blood culture (07/15/2024) 07/15: Incision and drainage of right foot diabetic wound abscess with excisional debridement Clinical evidence of osteomyelitis of the fifth metatarsal and he will require 6 weeks of IV antibiotics PICC line ordered as well, but this was deferred due to his positive blood cultures Gen surgery on board Group B streptococcemia Blood culture positive for GBS Antibiotics whittled down on Rocephin pending tissue culture PE/DVT CT chest and Venous doppler showed DVT RLE s/p Heparin infusion Started Eliquis 10 mg p.o. b.i.d. for 7 days and continues with Eliquis 5 mg p.o. b.i.d. ECHO shows left ventricular systolic function 55-60% Afib RVR, new onset [id number] 2 s/p Amiodarone infusion, now on Amiodarone 400mg bid, transition to 200mg bid after 7 days ECHO completed Started Eliquis 10 mg p.o. b.i.d. for 7 days (07/16-07/22), and continues with Eliquis 5 mg p.o. b.i.d. DM2 SSi with accucheks HTN titrate home meds with clinical course RADHA on CPAP DVT prophylaxis on heparin infusion Subjective Date/time seen: 07/18/24 15:55 Interval history: Both wound and bone culture resulted Group B streptococcus. Patient needs IV ceftriaxone and Metronidazole for 6 weeks. Patient will undergo PICC line and possible discharge tomorrow. Repeat blood culture preliminary result is negative.Diagnosed PE and Right DVT,started Eliquis 10 mg p.o. b.i.d. for 7 days (07/16-07/22), and continues with Eliquis 5 mg p.o. b.i.d. Review of Systems Review of Systems: 12 systems were reviewed and are negative except for as per HPI. Exam Narrative: General: Moderately ill-appearing male in the semi-Bedoya position in bed. Weight: 172.6 kg. BMI: 51.6. HEENT: Wearing corrective lenses. PERRL, EOMI. Sclera anicteric. Tacky mucous membranes. Oropharynx is crowded. Neck: Supple. Exam limited due to neck circumference. No obvious JVD or lymphadenopathy. Respiratory: Respirations are nonlabored and he is speaking in full sentences. Lungs are clear to auscultation. Cardiovascular: Irregularly irregular rate and rhythm. Gastrointestinal: Abdomen is soft, morbidly obese, nontender, and nondistended with positive bowel sounds. Skin: Warm and dry. There is an ulcerative lesion on the lateral plantar aspect of the right foot draining malodorous, purulent fluid with surrounding warmth and erythema. No obvious crepitus noted. Extremities: No cyanosis or clubbing. Legs are large. There is pitting edema of the right lower extremity. No obvious palpable knots or cords. Neurological: Alert. Cranial nerves 2-12 are grossly intact. No gross focal deficits to casual conversation. Psychiatric: Pleasant and cooperative with normal mood and affect. Judgment and insight intact. Objective Data Vital Signs Vital Signs: Vital Signs - 24 hr 07/17/24 15:58 07/17/24 16:00 07/17/24 17:25 Temperature 98.3 F Pulse Rate 76 73 88 Respiratory Rate 20 Blood Pressure 126/75 Pulse Oximetry 98 Oxygen Delivery 07/17/24 20:08 07/17/24 20:00 07/17/24 20:00 Temperature Pulse Rate 79 79 Respiratory Rate Blood Pressure Pulse Oximetry Oxygen Delivery Room Air 07/17/24 21:53 07/18/24 00:00 07/18/24 04:00 Temperature 97.2 F L Pulse Rate 77 72 80 Respiratory Rate 18 Blood Pressure 142/92 H Pulse Oximetry 96 Oxygen Delivery 07/18/24 06:00 07/18/24 08:06 07/18/24 08:07 Temperature 97.4 F L Pulse Rate 80 80 80 Respiratory Rate 18 Blood Pressure 120/61 Pulse Oximetry 97 Oxygen Delivery 07/18/24 08:00 07/18/24 12:00 07/18/24 14:29 Temperature 97.3 F L Pulse Rate 76 80 77 Respiratory Rate 18 Blood Pressure 130/82 Pulse Oximetry 96 Oxygen Delivery Intake/Output Intake/Output: Intake & Output 07/15/24 07/16/24 07/17/24 07/18/24 23:59 23:59 23:59 23:59 Intake Total 1466.5 1636 2420 1030 Output Total 2950 3500 5200 2775 Balance -1483.5 -1864 -2780 -1745 Meds/Results Medications: Active Medications Generic Name Dose Route Start Last Admin Trade Name Freq PRN Reason Stop Dose Admin Acetaminophen 650 mg 07/13/24 23:05 07/18/24 13:07 Acetaminophen 325 Mg Tablet PO 650 mg Q6H PRN Administration Mild Pain (1-3) or Fever Amiodarone HCl 400 mg 07/15/24 09:00 07/18/24 08:06 Amiodarone Hcl 200 Mg Tablet PO 400 mg BID RASTA Administration Apixaban 10 mg 07/16/24 12:30 07/18/24 08:07 Apixaban 5 Mg Tablet PO 07/22/24 21:01 10 mg Q12HR RASTA Administration Apixaban 5 mg 07/23/24 09:00 Apixaban 5 Mg Tablet PO Q12HR RASTA Atorvastatin Calcium 10 mg 07/14/24 09:00 07/18/24 08:07 Atorvastatin 10 Mg Tablet PO 10 mg DAILY RASTA Administration Dextrose 12.5 gm 07/13/24 23:05 Dextrose 50% 25 Gm/50 Ml Syringe IV PUSH PRN PRN Hypoglycemia Protocol Empagliflozin 25 mg 07/14/24 09:00 07/18/24 08:07 Empagliflozin 25 Mg Tablet PO 25 mg DAILY RASTA Administration Furosemide 40 mg 07/15/24 09:00 07/18/24 08:06 Furosemide 40 Mg Tablet PO 40 mg DAILY RASTA Administration Glimepiride 1 mg 07/14/24 09:00 07/18/24 08:06 Glimepiride 1 Mg Tablet PO 1 mg QAM RASTA Administration Glucagon 1 mg 07/13/24 23:05 Glucagon For Inj 1 Mg Vial IM PRN PRN Hypoglycemia Protocol Glucose 15 gm 07/13/24 23:05 Glucose Oral Gel 15 Gm Of Glucse In 37.5 Gm Tube PO PRN PRN Hypoglycemia Protocol Dextrose 1,000 mls @ 100 mls/hr 07/13/24 23:05 Dextrose 5% 1,000 Ml IVPB PRN PRN Hypoglycemia Protocol Ceftriaxone Sodium 2 gm in 100 mls @ 200 mls/hr 07/15/24 21:00 07/17/24 20:39 Rocephin 2 Gm/Ns 100 Ml IVPB 08/26/24 23:59 Infused Q24H RASTA Infusion Insulin Aspart 3 - 6 units 07/14/24 08:00 07/18/24 11:48 Insulin Aspart (*Bkc) 100 Units/Ml SUB-Q Not Given TIDWM COUNTS INCLUDE 234 BEDS AT THE [facility] Protocol Insulin Aspart 1 - 3 units 07/13/24 23:10 07/17/24 20:00 Insulin Aspart (*Bkc) 100 Units/Ml SUB-Q Not Given HS COUNTS INCLUDE 234 BEDS AT THE [facility] Protocol Metoprolol Tartrate 25 mg 07/15/24 09:00 07/18/24 08:07 Metoprolol Tartrate 25 Mg Tablet PO 25 mg Q12HR RASTA Administration Metronidazole 500 mg 07/16/24 13:45 07/18/24 13:07 Metronidazole 500 Mg Tablet PO 08/26/24 22:01 500 mg Q8HR RASTA Administration Oxycodone HCl 5 mg 07/15/24 16:51 Oxycodone Hcl (*Crx) 5 Mg Tab Ir PO Q4H PRN Pain Rated 7-10 Polyethylene Glycol 17 gm 07/16/24 09:00 07/18/24 08:07 Polyethylene Glycol 3350 17 Gm Powd.Pack PO Not Given QAM COUNTS INCLUDE 234 BEDS AT THE [facility] Radiology Results: ITS Impressions Venous Doppler Study 07/13/24 15:06 IMPRESSION: 1. Deep venous thrombosis at the right femoral and popliteal veins. Foot X-Ray 07/13/24 15:34 IMPRESSION: Osteomyelitis of distal fifth metatarsal bone and base of proximal phalanx of fifth digit, with adjacent soft tissue swelling, subcutaneous emphysema Chest X-Ray 07/13/24 15:38 IMPRESSION: Pulmonary vascular prominence and redistribution suggesting mild pulmonary venous hypertension Chest CTA 07/13/24 16:51 IMPRESSION: Bilateral subsegmental lower lobe pulmonary emboli Abdomen Ultrasound 07/14/24 15:36 IMPRESSION: Limited study; no apparent abnormality of the liver, pancreas or gallbladder Ankle Brachial Index 07/17/24 15:25 IMPRESSION: 1. No significant arterial occlusive disease. Labs Labs: Laboratory Results - last 24 hr 07/17/24 07/18/24 07/18/24 20:00 05:23 08:16 WBC 8.1 RBC 4.09 L Hgb 11.9 L Hct 37.6 L MCV 91.9 MCH 29.1 MCHC 31.6 L RDW 14.9 H Plt Count 435 H MPV 10.1 Sodium 136 L Potassium 3.6 Chloride 100 Carbon Dioxide 28 Anion Gap 8 BUN 11 Creatinine 0.80 Estim Creat Clear Calc 145 Estimated GFR > 60 Glucose 114 H POC Capillary Glucose 135 H 116 H Calcium 8.4 Total Bilirubin 0.7 AST 50 ALT 43 Alkaline Phosphatase 136 H Total Protein 8.0 Albumin 3.7 07/18/24 11:35 WBC RBC Hgb Hct MCV MCH MCHC RDW Plt Count MPV Sodium Potassium Chloride Carbon Dioxide Anion Gap BUN Creatinine Estim Creat Clear Calc Estimated GFR Glucose POC Capillary Glucose 164 H Calcium Total Bilirubin AST ALT Alkaline Phosphatase Total Protein Albumin Quality VTE Prophylaxis VTE prophylaxis: pharmacologic ordered (currently on a heparin drip for DVT and PE) Hospitalist MIPS Advance Care Plan I have confirmed that the patient's Advanced Care Plan is present, code status is documented, or surrogate decision maker is listed in patient medical record.: Yes Medication Reconciliation I have utilized all available resources to obtain, update and review the patients current medications (includes all prescriptions, OTC, herbals, cannabis, and nutritional supplements).: Yes
[2024-07-18] MEDS: LIDOCAINE HCL 1% PF INJ 5 ML VIAL INFILTRATE (16:15)
[2024-07-18 16:59] LABS: Glucose Point of Care 119 mg/dl (65-105)
[2024-07-18] MEDS: cefTRIAXone 2 GM/NS 100 ML 2 GM/100 ML BAG IVPB (19:53)
[2024-07-18] MEDS: CENTRAL LINE FLUSH 10 ML IV PUSH (19:54)
[2024-07-19] VITALS (7 sets, daily range): BP systolic 140–148; BP diastolic 80–85; PULSE 69–83; RESP 16–20; TEMP 36.5–36.9; O2SAT 94–100
[2024-07-19 01:05] LABS: Glucose Point of Care 147 mg/dl (65-105)
[2024-07-19 04:53] LABS: Hematocrit 35.8 % (42.0-52.0); Hemoglobin 11.5 g/dL (14.0-18.0); Mean Corpuscular HGB Conc 32.1 g/dl (32-36); Mean Corpuscular Volume 90.2 fl (80-100); Mean Platelet Volume 9.2 fl (7.4-10.4); Platelet Count Result 378 k/mm3 (150-375); Red Blood Count 3.97 M/mm3 (4.6-6.20); Red Cell Distribution Width 15.2 % (11.5-14.5); White Blood Count 7.6 K/mm3 (4.5-10.0)
[2024-07-19] MEDS: CENTRAL LINE FLUSH 10 ML IV PUSH ×2 (04:53→13:18)
[2024-07-19] MEDS: CENTRAL LINE FLUSH 20 ML IV PUSH (04:53)
[2024-07-19] MEDS: metroNIDAZOLE 500 MG TABLET PO ×2 (04:55→13:18)
[2024-07-19 05:19] LABS: Alanine Aminotransferase 39 U/L (6-50); Albumin Level 3.3 g/dL (3.5-5.1); Alkaline Phosphatase 112 U/L (38-126); Anion Gap 6 mmol/L (4-12); Aspartate Amino Transferase 51 U/L (17-59); Bilirubin,Total 0.6 mg/dL (0.2-1.3); Blood Urea Nitrogen 12 mg/dL (9-20); Calcium 8.4 mg/dL (8.4-10.2); Carbon Dioxide 31 mmol/L (22-30); Chloride 99 mmol/L (98-107); Estimated CRCL calculation 128 ml/min; Estimated Glomerular Filt Rate > 60; Glucose 116 mg/dL (65-110); Potassium 3.7 mmol/L (3.4-5.0); Sodium 136 mmol/L (137-145)
[2024-07-19 07:59] LABS: Glucose Point of Care 108 mg/dl (65-105)
[2024-07-19] MEDS: APIXABAN 5 MG TABLET 10 MG PO (08:38)
[2024-07-19] MEDS: FUROSEMIDE 40 MG TABLET PO (08:38)
[2024-07-19] MEDS: GLIMEPIRIDE 1 MG TABLET PO (08:39)
[2024-07-19] MEDS: METOPROLOL TARTRATE 25 MG TABLET PO (08:39)
[2024-07-19] MEDS: ATORVASTATIN 10 MG TABLET PO (08:39)
[2024-07-19] MEDS: EMPAGLIFLOZIN 25 MG TABLET PO (08:39)
[2024-07-19] MEDS: AMIODARONE HCL 200 MG TABLET 400 MG PO (08:39)
--- NOTE | 2024-07-19 11:39 | PM.DS ---
DS: Admitting Diagnosis Discharge Date -24 Admitting Diagnosis Sepsis DS: Discharge Diagnosis Discharge Diagnosis (1) Sepsis: Code(s): A41.9 - Sepsis, unspecified organism Status: Acute (2) Osteomyelitis of right foot: Code(s): M86.9 - Osteomyelitis, unspecified Status: Acute (3) Diabetic ulcer of right foot: Code(s): E11.621 - Type 2 diabetes mellitus with foot ulcer; L97.519 - Non-pressure chronic ulcer of other part of right foot with unspecified severity Status: Acute (4) Diabetic infection of right foot: Code(s): E11.628 - Type 2 diabetes mellitus with other skin complications; L08.9 - Local infection of the skin and subcutaneous tissue, unspecified Status: Acute (5) Deep vein thrombosis of right lower extremity: Code(s): I82.401 - Acute embolism and thrombosis of unspecified deep veins of right lower extremity Status: Acute (6) Bilateral pulmonary embolism: Code(s): I26.99 - Other pulmonary embolism without acute cor pulmonale Status: Acute (7) Atrial fibrillation with rapid ventricular response: Code(s): I48.91 - Unspecified atrial fibrillation Status: Acute (8) Elevated LFTs: Code(s): R79.89 - Other specified abnormal findings of blood chemistry Status: Acute (9) Hypertension: Code(s): I10 - Essential (primary) hypertension Status: Acute (10) Type 2 diabetes mellitus: Code(s): E11.9 - Type 2 diabetes mellitus without complications Status: Acute (11) Obstructive sleep apnea: Code(s): G47.33 - Obstructive sleep apnea (adult) (pediatric) Status: Acute Plan Please refer to hospital course for for brief details Diabetic right foot ulcer with osteomyelitis Osteomyelitis of distal fifth metatarsal bone and base of proximal phalanx of fifth digit, with adjacent soft tissue swelling, subcutaneous emphysema Blood culture positive GBS narrowed abx to Rocephin per blood culture (07/15/2024) 07/15: Incision and drainage of right foot diabetic wound abscess with excisional debridement Clinical evidence of osteomyelitis of the fifth metatarsal and he will require 6 weeks of IV antibiotics PICC line ordered as well, but this was deferred due to his positive blood cultures Gen surgery on board Group B streptococcemia Blood culture positive for GBS Antibiotics whittled down on Rocephin pending tissue culture PE/DVT CT chest and Venous doppler showed DVT RLE s/p Heparin infusion Started Eliquis 10 mg p.o. b.i.d. for 7 days and continues with Eliquis 5 mg p.o. b.i.d. ECHO shows left ventricular systolic function 55-60% Afib RVR, new onset [id number] 2 s/p Amiodarone infusion, now on Amiodarone 400mg bid, transition to 200mg bid after 7 days ECHO completed Started Eliquis 10 mg p.o. b.i.d. for 7 days (07/16-07/22), and continues with Eliquis 5 mg p.o. b.i.d. DM2 SSi with accucheks HTN titrate home meds with clinical course RADHA on CPAP DVT prophylaxis on heparin infusion DS: Summary Hospital Course Hospital Course: This is a pleasant 59-year-old male with hypertension, dyslipidemia, nonobstructive coronary artery disease, obstructive sleep apnea intolerant to CPAP, and type 2 diabetes mellitus who presented to the emergency department via private vehicle for evaluation of hot and cold flashes. The patient provides the following history. He has not been feeling well for 3 days with episodes hot flashes and sweats followed by cold chills. He has also noticed swelling in his right leg and reports having a chronic ulcer on the right lateral foot which has been draining malodorous fluid for over a month. He has also been feeling a bit short of breath with exertion. He denies syncope, near syncope, headache, neck ache, sinus congestion, sore throat, cough, abdominal pain, nausea, vomiting, diarrhea, and dysuria. He also denies chest pain, pleuritic pain, palpitations, sensations of racing heart, and calf pain. In the ED: He was afebrile on arrival with stable vital signs. Labs were significant for a WBC count of 13.3, hemoglobin 13.6, platelet 434, ESR 22, sodium 132, chloride 93, lactic acid 2.1, glucose 144, AST 75, ALT 55, alkaline phosphatase 174, CRP 17.7, proBNP 2480. Tested negative for influenza, RSV, and COVID. Chest CTA showed bilateral subsegmental lower lobe pulmonary emboli. Venous Doppler ultrasound showed DVTs in the right femoral and popliteal veins. Right foot x-ray showed osteomyelitis of the distal 5th metatarsal bone and base of the proximal phalanx of the 5th digit. Several hours after arrival he went into rapid atrial fibrillation and was given IV metoprolol without much benefit and he has been started on amiodarone drip. He has also been started on cefepime, metronidazole, and vancomycin for the diabetic foot infection and heparin drip for DVT and pulmonary emboli. He is being admitted to the IMU in this setting for further treatment and cardiology and surgery consultations. In regards to osteomyelitis, patient underwent on 07/15 : Incision and drainage of right foot diabetic wound abscess with excisional debridement utilizing sharp scalpel and scissors of skin, subcutaneous tissue, and bone.Wound and bone culture shows Group B streptococcus.Patient needs to complete both Ceftriaxone 2mg IV ,once a day and Metronidazole 3 times a day until 08/26/2024 for Osteomyelitis of Right Foot. In regards to PE and Right DVT which was diagnosed during this hospitalization ,patient needs to take Eliquis 10mg PO BID until 07/22.After that patient needs to take Eliquis 5mg PO BID and continue until the discretion of PCP/Mathematics Teacher. In regards to A.Fib patient needs to take Amiodarone 400 mg PO BID until 07/21 and then Amiodarone 200 mg PO BID. CHADVASC score 2. Patient is on Eliquis. Patient ASA 325 mg dc and started 81 mg PO QD. Status at Discharge Cognitive/behavioral status at discharge: Stable Time Spent with Patient Time attestation: Total time spent providing and/or coordinating discharge services:45 mins Exam Narrative: General: Moderately ill-appearing male in the semi-Bedoya position in bed. Weight: 172.6 kg. BMI: 51.6. HEENT: Wearing corrective lenses. PERRL, EOMI. Sclera anicteric. Tacky mucous membranes. Oropharynx is crowded. Neck: Supple. Exam limited due to neck circumference. No obvious JVD or lymphadenopathy. Respiratory: Respirations are nonlabored and he is speaking in full sentences. Lungs are clear to auscultation. Cardiovascular: Irregularly irregular rate and rhythm. Gastrointestinal: Abdomen is soft, morbidly obese, nontender, and nondistended with positive bowel sounds. Skin: Warm and dry. There is an ulcerative lesion on the lateral plantar aspect of the right foot draining malodorous, purulent fluid with surrounding warmth and erythema. No obvious crepitus noted. Extremities: No cyanosis or clubbing. Legs are large. There is pitting edema of the right lower extremity. No obvious palpable knots or cords. Neurological: Alert. Cranial nerves 2-12 are grossly intact. No gross focal deficits to casual conversation. Psychiatric: Pleasant and cooperative with normal mood and affect. Judgment and insight intact. DS: Data Data Completed and Pending Labs on day of discharge: Labs from last 24 hours 07/19/24 07/19/24 07/18/24 07:54 04:47 19:35 WBC 7.6 RBC 3.97 L Hgb 11.5 L Hct 35.8 L MCV 90.2 MCH 29.0 MCHC 32.1 RDW 15.2 H Plt Count 378 H MPV 9.2 Sodium 136 L Potassium 3.7 Chloride 99 Carbon Dioxide 31 H Anion Gap 6 BUN 12 Creatinine 0.90 Estim Creat Clear Calc 128 Estimated GFR > 60 Glucose 116 H POC Capillary Glucose 108 H 147 H Calcium 8.4 Total Bilirubin 0.6 AST 51 ALT 39 Alkaline Phosphatase 112 Total Protein 8.0 Albumin 3.3 L 07/18/24 07/18/24 16:56 11:35 WBC RBC Hgb Hct MCV MCH MCHC RDW Plt Count MPV Sodium Potassium Chloride Carbon Dioxide Anion Gap BUN Creatinine Estim Creat Clear Calc Estimated GFR Glucose POC Capillary Glucose 119 H 164 H Calcium Total Bilirubin AST ALT Alkaline Phosphatase Total Protein Albumin Preliminary micro results at discharge 07/15/24 16:15 Anaerobic Culture - Preliminary Bone Bacteroides vulgatus Aerobic Culture - Preliminary Group B Streptococcus isolated 07/15/24 16:16 Anaerobic Culture - Preliminary Foot Right 07/16/24 14:57 Blood Culture - Preliminary Blood 07/16/24 14:45 Blood Culture - Preliminary Blood 07/13/24 15:08 Blood Culture - Preliminary Blood Bacteroides vulgatus Discharge Plan Discharge Attending physician on discharge: Eben Parrish Consulting providers: Javier Montgomery; Felton Newton Discharging Clinician: Eben Parrish Anticipated Discharge Date/Time: 07/19/24 11:10 Patient Disposition: Home Health Service Activity: as tolerated Diet: heart healthy and diabetic Discharge Instructions: [facility] will provide PT/OT eval and treat, and [place] [facility] services for you. Their phone number is [phone], if you have any questions. They will contact you to schedule their first visit. [facility] will provide your home infusion supples (IV antibiotics). Their phone number is [phone]. if you have any questions. Wound Care: Pack right foot wound with quarter-inch iodoform gauze and cover with 4 x 4 gauze. Then wrap with wrapped gauze and cover with Americo wrap. Okay to shower over wound before dressing is changed. Use your walking boot when you are bearing any weight on your right lower extremity. Use this for transfers and walking. Try to keep walking at a minimal distance. Keep your right leg and foot elevated when you are resting in a chair or in bed. Patient will see Dr. Montgomery at the [facility] on July at 12:30PM. Please arrive to the hospital by 12:00PM as you must go through Registration. Registration is located to the left of Hospital Entrance 1 Once you have your Registration papers, use the elevators in the same lobby to the 2nd floor. Once on the 2nd floor, follow the signs to the Wound Center Please needs to complete both Ceftriaxone 2mg IV ,once a day and Metronidazole 3 times a day until 08/26/2024 for Osteomyelitis of Right Foot Patient needs to take Eliquis 10mg PO BID until 07/22. After that patient needs to take Eliquis 5mg PO BID and continue until the discretion of PCP. Patient needs to take Amiodarone 400 mg PO BID until 07/21 and then Amiodarone 200 mg PO BID for his AFib Patient Instructions: Antibiotic Form, Diltiazem (By mouth), Heparin/Sodium Chloride Premix (Injection), Amiodarone (By injection), A-fib (Atrial Fibrillation) (GEN), Pulmonary Embolism (GEN), Deep Vein Thrombosis (GEN) Stand Alone Forms: General Discharge Information Follow-up/Referrals: Katarzyna Sanchez MD [Primary Care Provider] - 1 Week (Please complete both Ceftriaxone 2mg IV ,once a day and Metronidazole 3 times a day until 08/26/2024 for Osteomyelitis of Right Foot Dx : PE and Right DVT Patient needs to take Eliquis 10mg PO BID until 07/22. After that patient needs to take Eliquis 5mg PO BID and continue until the discretion of PCP. A.Fib : Patient needs to take Amiodarone 400 mg PO BID until 07/21 and then Amiodarone 200 mg PO BID) Felton Newton DO [Physician] - 1 Week (Please complete both Ceftriaxone 2mg IV ,once a day and Metronidazole 3 times a day until 08/26/2024 for Osteomyelitis of Right Foot Patient needs to take Eliquis 10mg PO BID until 07/22. After that patient needs to take Eliquis 5mg PO BID and continue until the discretion of PCP. Patient needs to take Amiodarone 400 mg PO BID until 07/21 and then Amiodarone 200 mg PO BID) Javier Montgomery MD [Physician] - 08/01/24 12:30 pm (At the [facility].) Discharge Medications: New amiodarone [Pacerone] 200 mg Tablet 400 mg PO BID Qty: 8 0RF Rx Instructions: Patient needs to take Amiodarone 400 mg PO BID until 07/21 and then Amiodarone 200 mg PO BID Eliquis 5 mg Tablet 10 mg PO Q12HR Qty: 8 0RF Rx Instructions: Patient needs to take Eliquis 10mg PO BID until 07/22. After that patient needs to take Eliquis 5mg PO BID and continue until the discretion of PCP. Eliquis 5 mg Tablet 5 mg PO Q12HR Qty: 60 0RF Rx Instructions: Patient needs to take Eliquis 10mg PO BID until 07/22. After that patient needs to take Eliquis 5mg PO BID from 07/23 and continue until the discretion of PCP. atorvastatin 10 mg Tablet 10 mg PO DAILY Qty: 30 0RF ceftriaxone 2 gram Recon Soln 2 g IV Q24H Qty: 10 10RF Rx Instructions: Patient needs to complete Ceftriaxone 2 g IV and Metronidazole 500 mg PO QID until 08/26/2024 for Osteomyelitis of Right Foot metronidazole 500 mg Tablet 500 mg PO Q8HR Qty: 125 0RF Rx Instructions: Patient needs to complete Ceftriaxone 2 g IV and Metronidazole 500 mg PO QID until 08/26/2024 for Osteomyelitis of Right Foot metoprolol tartrate 25 mg Tablet 25 mg PO Q12HR 30 Days Qty: 60 0RF amiodarone 200 mg tablet 200 mg PO DAILY Qty: 60 0RF Rx Instructions: Patient needs to take Amiodarone 400 mg PO BID until 07/21 and then Amiodarone 200 mg PO BID aspirin 81 mg capsule 81 mg PO DAILY Qty: 30 0RF Continued metformin 1,000 mg tablet 1,000 mg PO BID 30 Days Qty: 180 2RF glimepiride 1 mg tablet 1 mg PO QAM Qty: 30 0RF Rx Instructions: administer with breakfast furosemide 40 mg tablet 40 mg PO DAILY lisinopril 40 mg tablet 40 mg PO DAILY Jardiance 25 mg tablet 25 mg PO DAILY Qty: 90 1RF simvastatin 10 mg tablet 10 mg PO DAILY Qty: 90 1RF Discontinued aspirin 325 mg tablet 325 mg PO DAILY Date of admission: 07/15/24 11:03 Primary Care Provider: Katarzyna Sanchez Admitting Provider: Charlie Hamilton Attending physician on admission: Charlie Hamilton Condition: Stable Quality VTE Prophylaxis VTE prophylaxis: pharmacologic ordered (currently on a heparin drip for DVT and PE)
[2024-07-19 11:51] LABS: Glucose Point of Care 140 mg/dl (65-105)
[2024-07-19] MEDS: cefTRIAXone 2 GM/NS 100 ML 2 GM/100 ML BAG IVPB (12:37)
== END 2024-07-19 15:15 | disposition home health service (06) | DRG 853 ==
LOC: ANHED 19:47 → ANHIMU 21:02 → ANH2MED 07-17 17:59
PROVIDERS: Emergency Medicine; Internal Medicine; Nurse Practitioner Gerontology; Physician Assistant; Surgery; Admitting Provider Internal Medicine; Emergency Provider Physician Assistant; PCP Family Medicine; Visit Provider General Practice
PROC: 0Y9M0ZX Drainage of Right Foot, Open Approach, Diagnostic (ICD-10-PCS; principal; 2024-07-15 14:45)
DX: A40.1 Sepsis due to streptococcus, group B (principal); I26.99 Other pulmonary embolism without acute cor pulmonale; I82.411 Acute embolism and thrombosis of right femoral vein; I82.431 Acute embolism and thrombosis of right popliteal vein; M86.171 Other acute osteomyelitis, right ankle and foot; Z68.43 Body mass index [BMI] 50.0-59.9, adult; L02.611 Cutaneous abscess of right foot; L97.519 Non-pressure chronic ulcer of other part of right foot with unspecified severity; B95.1 Streptococcus, group B, as the cause of diseases classified elsewhere; B96.6 Bacteroides fragilis [B. fragilis] as the cause of diseases classified elsewhere; E11.621 Type 2 diabetes mellitus with foot ulcer; E78.5 Hyperlipidemia, unspecified; E66.01 Morbid (severe) obesity due to excess calories; G47.33 Obstructive sleep apnea (adult) (pediatric); I48.0 Paroxysmal atrial fibrillation; I73.9 Peripheral vascular disease, unspecified; I10 Essential (primary) hypertension; I25.2 Old myocardial infarction; I25.10 Atherosclerotic heart disease of native coronary artery without angina pectoris; Z79.82 Long term (current) use of aspirin; Z79.84 Long term (current) use of oral hypoglycemic drugs; Z28.21 Immunization not carried out because of patient refusal; Z20.822 Contact with and (suspected) exposure to COVID-19; Z87.891 Personal history of nicotine dependence; Z91.199 Patient's noncompliance with other medical treatment and regimen due to unspecified reason
CPT/HCPCS: 36415; 36569; 71045; 71275; 73630; 76705; 80053; 80202; 82550; 82948; 83036; 83605; 83735; 83880; 84443; 84484; 85025; 85027; 85610; 85652; 85730; 86140; 87040; 87070; 87075; 87181; 87186; 87205; 87637; 93005; 93922; 93971; 96365; 96366; 96367; 96368; 96375; 96376; 97116; 97161; 97165; 97530; 99285; A9270; C8929; G0378; J0282; J0330; J0692; J0696; J1100; J1644; J1836; J1940; J2003; J2004; J2250; J2405; J2704; J3010; J3370; J7030; J7120; L2116; Q9957; Q9967

== ENCOUNTER 2024-08-06 12:16 | Outpatient (RCR) | payer OTHER, SELFPAY ==
[2024-07-24 12:47] LABS: Hematocrit 42.3 % (42.0-52.0); Hemoglobin 13.1 g/dL (14.0-18.0); Mean Corpuscular Hemoglobin 28.7 pg (26-34); Mean Corpuscular Volume 92.6 fl (80-100); Mean Platelet Volume 10.2 fl (7.4-10.4); Platelet Count Result 350 k/mm3 (150-375); Red Blood Count 4.57 M/mm3 (4.6-6.20); Red Cell Distribution Width 16.1 % (11.5-14.5); White Blood Count 6.7 K/mm3 (4.5-10.0)
[2024-07-24 13:01] LABS: Alanine Aminotransferase 23 U/L (6-50); Alkaline Phosphatase 113 U/L (38-126); Anion Gap 9 mmol/L (4-12); Aspartate Amino Transferase 34 U/L (17-59); Bilirubin,Total 0.7 mg/dL (0.2-1.3); Blood Urea Nitrogen 14 mg/dL (9-20); Calcium 9.2 mg/dL (8.4-10.2); Carbon Dioxide 33 mmol/L (22-30); Chloride 96 mmol/L (98-107); Estimated Glomerular Filt Rate > 60; Glucose 145 mg/dL (65-110); Potassium 3.9 mmol/L (3.4-5.0); Sodium 138 mmol/L (137-145)
[2024-08-06 12:35] LABS: Hematocrit 43.2 % (42.0-52.0); Hemoglobin 14.2 g/dL (14.0-18.0); Mean Corpuscular HGB Conc 32.9 g/dl (32-36); Mean Corpuscular Volume 91.1 fl (80-100); Mean Platelet Volume 10.6 fl (7.4-10.4); Platelet Count Result 350 k/mm3 (150-375); Red Blood Count 4.74 M/mm3 (4.6-6.20); Red Cell Distribution Width 16.2 % (11.5-14.5); White Blood Count 6.9 K/mm3 (4.5-10.0)
[2024-08-06 12:45] LABS: Alanine Aminotransferase 22 U/L (6-50); Albumin Level 4.3 g/dL (3.5-5.1); Alkaline Phosphatase 96 U/L (38-126); Anion Gap 10 mmol/L (4-12); Aspartate Amino Transferase 39 U/L (17-59); Bilirubin,Total 0.7 mg/dL (0.2-1.3); Blood Urea Nitrogen 19 mg/dL (9-20); Carbon Dioxide 30 mmol/L (22-30); Chloride 96 mmol/L (98-107); Estimated Glomerular Filt Rate > 60; Glucose 177 mg/dL (65-110); Potassium 4.5 mmol/L (3.4-5.0); Sodium 136 mmol/L (137-145)
== END 2024-10-22 23:59 | disposition home or self-care (01) ==
LOC: HOME HLTH 12:16
PROVIDERS: PCP Family Medicine; Visit Provider Family Medicine
DX: E11.621 Type 2 diabetes mellitus with foot ulcer (principal); L97.519 Non-pressure chronic ulcer of other part of right foot with unspecified severity; M86.9 Osteomyelitis, unspecified
CPT/HCPCS: 80053; 85027

== ENCOUNTER 2024-10-22 07:13 | Outpatient (RCR) | payer OTHER, SELFPAY ==
[2024-08-01 13:55] VITALS: BMI 48.5
--- NOTE | 2024-08-01 16:39 | WPDPN ---
Progress Note: A&P Assessment and Plan (1) Diabetic infection of right foot: Code(s): E11.628 - Type 2 diabetes mellitus with other skin complications; L08.9 - Local infection of the skin and subcutaneous tissue, unspecified Status: Acute Assessment and Plan: Continue daily Rocephin for IV antibiotic therapy via his PICC line at home. He was instructed to either take a probiotic or eat yogurt with active cultures. He was having some diarrhea likely due to his antibiotics and so hopefully this will help solve this problem. The wound looks pretty good with good improvement and granulation tissue. Wound no longer pack the wound and just apply silver for Gel the wound and cover with a dry dressing. He may go back to work next week as long as he keeps his right leg elevated at work and minimizes walking on the right foot. He was also instructed to try to minimize any driving he may need to do. We will see him back in the [facility] in about 2 weeks. (2) Osteomyelitis of right foot: Code(s): M86.9 - Osteomyelitis, unspecified Status: Acute Subjective Date/time seen: 08/01/24 16:39 Interval history: Patient returns to the [facility] and [facility] for his 1st postoperative visit after being discharged from the hospital about 2 weeks ago. He had a right foot abscess with destruction of a portion of the right 5th metatarsal and clinical osteomyelitis. He was discharged home Rocephin for IV antibiotics for 6 weeks. He has been doing well with the PICC line and IV antibiotics. He is been hooking up the medications on his own without need for home health IV Infusion therapy nurses. A home health nurse does got once a week to examine the right foot wound which has been healing appropriately. He is keeping his right leg elevated and for the most part is not weight-bearing on the right foot. He is wanting to return to work next week. He has a job which requires him to pretty much set at a desk all day. Exam Extrem: Other: The right lateral foot wound measures 4.5x1.4x1cm. There is 100% red beefy granulation tissue throughout the whole base. There is only minimal serous drainage. Upon digital palpation of the wound the proximal and of the 5th metatarsal is easily palpable at the base of the wound. He is able to move all of his toes. All the toes are viable. He has minimal induration and no spreading erythema around the wound. No other wounds on the right foot.
--- NOTE | 2024-08-13 09:38 | PCWOUND ---
WOCN NOTE Patient did not show up for his scheduled appointment. No call was made by the patient to cancel or reschedule.
--- NOTE | 2024-08-27 12:58 | P.PN_ITS ---
Progress Note: A&P Assessment and Plan (1) Diabetic infection of right foot: Code(s): E11.628 - Type 2 diabetes mellitus with other skin complications; L08.9 - Local infection of the skin and subcutaneous tissue, unspecified Status: Acute Assessment and Plan: The right foot diabetic wound continues to heal very well. He clinically had osteomyelitis which was treated with 6 weeks of IV ceftriaxone. He has now finished that course of antibiotics and I do not think he needs any further IV antibiotics. Removed his PICC line in the [facility] today. The tip of the PICC line was intact and the area was then covered with a dry dressing after removal. He will continue the wound dressing as previously ordered. We will keep him on Levaquin 750mg daily into the wound completely heals. I will see him back in the [facility] Care Clinic in about 2 weeks. Overall there has been over 50% decrease in size of the wound since his last visit. Subjective Date/time seen: 08/27/24 12:58 Interval history: Patient comes to the [facility] today for evaluation of the wound on his right lateral foot. He had a lateral right foot ulcer with osteomyelitis and destruction of shaft of the metatarsal of the 5th digit on the right foot. The wound was drained and debrided and he has been on IV antibiotics for the past 6 weeks at home. He is being ceftriaxone 2g daily. He has no complaints. He has a non constricting shoe which she wears to walk. He does the minimizes walking but is able to go to work and have his foot elevated. He finished his last dose of IV antibiotics 2 days ago. Exam Extrem: Other: The right foot wound now measures 1.1x0.5x0.5cm. It has beefy red granulation and there is only a small amount of serous drainage. There is no purulence and no necrotic tissue. There is no surrounding erythema.
--- NOTE | 2024-09-10 12:48 | P.PN_ITS ---
Progress Note: A&P Assessment and Plan (1) Diabetic infection of right foot: Code(s): E11.628 - Type 2 diabetes mellitus with other skin complications; L08.9 - Local infection of the skin and subcutaneous tissue, unspecified Status: Acute Assessment and Plan: Patient continues to do well. The right lateral diabetic foot wound with osteomyelitis continues to heal. He finished his course of 6 weeks of IV antibiotics. The wound continues to close without evidence of ongoing infection at this time. Continue packing the wound a small amount of calcium alginate and cover with dry dressing. He can wear a regular loose fitting shoe with a sock. Follow-up with the [facility] Care Clinic again and 3 weeks. Subjective Date/time seen: 09/10/24 12:48 Interval history: Patient is an [facility] for an interval wound check on his right foot diabetic wound. He continues do well. The wound is continued to get smaller over time. There is no redness or pain. He is wearing a loose- fitting postop shoe at the present time with a sock. Exam Extrem: Other: The right lateral diabetic foot wound continues to decrease in size. It now measures only 0.8x0.4x0.4cm. There is no underlying bone exposed. Minimal serous drainage. All the toes on the right foot are viable. He is able to flex and extend the right 5th toe.
--- NOTE | 2024-10-01 18:49 | WPDPN ---
Progress Note: A&P Assessment and Plan (1) Diabetic infection of right foot: Code(s): E11.628 - Type 2 diabetes mellitus with other skin complications; L08.9 - Local infection of the skin and subcutaneous tissue, unspecified Status: Acute Assessment and Plan: The diabetic right foot wound is now almost healed. Continue applying silver gel and a dry dressing to the wound for now. We will see him back in the [facility] in about 3 weeks. I would expect that by that time the wound will be pretty much closed and hopefully that will be his last visit. Okay to weight bear and ambulate as normal on the right foot. Subjective Date/time seen: 10/01/24 18:49 Interval history: Patient here for 2 week follow-up in the [facility] for his lateral right foot diabetic wound and osteomyelitis. He has no complaints. The wound seems to be healing well and is now very small. He is off oral antibiotics. No evidence of continued infection from the osteomyelitis. Exam GI: Other: Lateral right foot wound now measures 0.8x0.4x0.2cm. It is very clean with a good granulation base and continues to contract. There is no redness around the wound to suggest ongoing osteomyelitis or infection.
--- NOTE | 2024-10-24 10:10 | WPDPN ---
Progress Note: A&P Assessment and Plan (1) Diabetic ulcer of right foot: Code(s): E11.621 - Type 2 diabetes mellitus with foot ulcer; L97.519 - Non-pressure chronic ulcer of other part of right foot with unspecified severity Status: Acute Assessment and Plan: Patient's right diabetic foot wound has now essentially healed. He was instructed to keep a Band-Aid on it until a full scab forms. He can have full weight-bearing on the foot without restrictions. Instructed to continue very stringent and careful for foot care due to his diabetes. He will no longer need to follow up in the Wound Care Clinic. He can see me again if needed. Subjective Date/time seen: 10/24/24 10:10 Interval history: Patient is seen in the [facility] for a one-month follow-up on his lateral right foot wound. He is doing very well. Has no complaints. No pain or any significant drainage or swelling in the lateral right foot wound. Exam Skin: Other: Lateral right foot diabetic foot wound is essentially healed. It now measures 0.4x0.1x0.1cm. There is a partial dry eschar around the wound now. There is essentially no drainage and there is no redness. No tenderness to palpation.
== END 2024-10-30 23:59 | disposition home or self-care (01) ==
LOC: ANHWOC 07:13
PROVIDERS: PCP Family Medicine; Visit Provider Surgery
DX: L08.9 Local infection of the skin and subcutaneous tissue, unspecified (principal); M86.9 Osteomyelitis, unspecified; E11.621 Type 2 diabetes mellitus with foot ulcer
CPT/HCPCS: 99213; 99214; G0463